=== PATIENT | female | born 1955 | race Caucasian/White ===

== ENCOUNTER 2020-08-07 08:09 | Outpatient (CLI) | payer MEDICARE, MEDICAID, SELFPAY ==
--- NOTE | 2020-08-07 09:00 | FL_ITS ---
WS: [id number] Exam: FL barium swallow modifd [id number] Date/Time of Exam: 08/07/2020 8:30 AM Reason For Exam: R47.02 - Dysphasia Fluoroscopy time: 2.4 minutes The exam was performed in conjunction with the speech therapy service. The patient tolerated thin liquid, thick liquid, nectar consistency and pudding consistency barium fo odstuffs without incident. Solid barium mixture foodstuffs and a barium pill were also tolerated well . There was no sign of aspiration or penetration into the laryngeal inlet. Questionable mucosal thick ening noted in the midesophagus along the posterior wall. Recommendations: Further workup with a detailed barium esophagram or esophagoscopy is recommended. An additional report of findings and recommendations will also be made with the speech therapy depart ment. FL/FL barium swallow modifd [id number] IMPRESSION: 1. Swallowing function at the level of oropharynx was normal with all consisten cies of barium mixture foodstuffs. No sign of aspiration or penetration into t he laryngeal inlet. 2. Questionable mucosal thickening of the midesophagus along the posterior wall .
== END 2020-08-07 08:10 | disposition home or self-care (01) ==
LOC: RAD 08:22
PROVIDERS: Visit Provider Surgery
DX: R47.02 Dysphasia (principal)
CPT/HCPCS: 74230; 92611

== ENCOUNTER → 2020-08-26 09:00 | Outpatient (BNVA) | payer MEDICARE, MEDICAID, SELFPAY | PROVIDERS: Visit Provider Surgery | DX: R47.02 Dysphasia (principal); Z20.822 Contact with and (suspected) exposure to COVID-19 | CPT/HCPCS: 87635 ==

== ENCOUNTER → 2020-09-25 08:59 | Outpatient (BNVA) | payer MEDICARE, MEDICAID, SELFPAY | PROVIDERS: Visit Provider Surgery | DX: R13.10 Dysphagia, unspecified (principal); Z01.812 Encounter for preprocedural laboratory examination; Z20.822 Contact with and (suspected) exposure to COVID-19 | CPT/HCPCS: 87635 ==

== ENCOUNTER 2020-09-30 08:46 | Day surgery (SDC) | payer MEDICARE, MEDICAID, SELFPAY ==
[2020-09-30 06:22] VITALS: BMI 38.5
[2020-09-30 10:14] VITALS: BP 100/68; PULSE 85; RESP 18; TEMP 36.4; O2SAT 99
--- NOTE | 2020-09-30 10:24 | P.HP_ITS ---
Same Day Surgery H&P Indication for Procedure/HPI DATE OF PROCEDURE: September 30, 2020 CHIEF COMPLAINT/INDICATIONFOR SURGICAL PROCEDURE: Difficulty in swallowing and screening colonoscopy PREOP DIAGNOSIS: Difficulty in swallowing and screening colonoscopy PLANNED PROCEDRUE: Operation Date: 09/30/20 08:15 Proposed Procedures s EGD 54970 84644 R47.2 Z12.11(Not Applicable) - Adarsh Gaxiola MD p Colonoscopy 92473 50297 R47.2 Z12.11(Not Applicable) - Adarsh Gaxiola MD Operation Date: 09/30/20 11:00 Proposed Procedures p EGD(Not Applicable) - Adarsh Gaxiola MD s Colonoscopy(Not Applicable) - Adarsh Gaxiola MD This is a pleasant 65 years old female patient referred to my practice with hist ory of dysphagia to solid food and associated with acid reflux. She reports that she does have dentures and denies history of strokes or nonintentional weight loss or hematemesis. She also reports history with pain often times with swallowing without obvious explanation. Patient does not smoke or ingest alcohol. Patient has been having this issue for the past few years and is just getting worse. Patient reports also that she is due for screening colonoscopy when I asked her. Interim history 09/30/2020 Patient comes today for diagnostic EGD and screening colonoscopy. Undergone a modified barium swallow that showed; IMPRESSION: 1. Swallowing function at the level of oropharynx was normal with all consistencies of barium mixture foodstuffs. No sign of aspiration or penetration into the laryngeal inlet. 2. Questionable mucosal thickening of the midesophagus along the posterior wall. ROS All systems have been reviewed negative except as per the above or per problem list Medications/Allergies* Home Medications Medication Instructions Recorded Confirmed Type atorvastatin 10 mg tablet 10 mg PO DAILY 07/22/20 09/30/20 History pantoprazole 40 mg tablet,delayed 40 mg PO DAILY 07/22/20 09/30/20 History release venlafaxine 37.5 mg 37.5 mg PO DAILY 07/22/20 09/30/20 History capsule,extended release 24 hr verapamil 120 mg 24 hr 120 mg PO DAILY 07/22/20 09/30/20 History capsule,extended release insulin NPH and regular human 40 unit SUBCUT BID 09/30/20 09/30/20 History [Humulin 70/30 U-100 KwikPen] semaglutide [Ozempic] 0.25 mg SUBCUT .WKLY 09/30/20 09/30/20 History Allergies/Adverse Reactions Allergy/AdvReac Type Severity Reaction Status Date / Time No Known Allergies Allergy Verified 09/30/20 10:25 Pertinent History/Comorbid Conditions* Family History (Updated 07/22/20 @ 15:30 by Gabriela Seth) Diabetes Cancer Hypertension Denies family history of CAD (coronary artery disease) Stroke Social History Smoking and tobacco status: never smoked Alcohol intake: never Lives independently: Yes Household members: spouse Pertinent Exam Findings alert, oriented x 3, clear to auscultation bilaterally, regular rate & rhythm and procedure specific exam findings (Abdominal examination nontender nondistended soft) Recommendations Surgery/Procedure today (EGD and colonoscopy) Other Plans: Plan of care; After thorough history and physical examination and reviewing the chart, plan to perform a diagnostic esophagogastroduodenoscopy and screening colonoscopy with possible biopsy and possible polypectomy. I discussed with the patient in detail the risks,benefits,alternatives and indications.The risk of aspiration, bleeding, soft tissue injury, perforation of the stomach/esophagus/colon and other potential concomitant complications were explained to the patient in details also the potential need for Thoracotomy and or Laproscoy/Laparotomy to repair any related complications including but not limited to colectomy and or Closotomy. The patient understood this well and did agree to proceed. Rationale was carefully and clearly discussed with the patient.Appropriate informed consent have been reviewed and signed Verbal and written Instructions were given to the patient for colonoscopy prep Coding Level of Care Code Acute Rn Outpatient Surgery for Ericka Parker
[2020-09-30] MEDS: sodium chloride 0.9% 1,000 ML 30 ML IV (10:27)
[2020-09-30 10:30] LABS: Glucose Point of Care 249 mg/dL (70-110)
--- NOTE | 2020-09-30 10:30 | ANES.PREANE2 ---
Pre-Anesthetic Assessment Pre-Anesthetic Assessment: Height/Weight: Height 1.68 m Weight 108.409 kg Temp Pulse Resp BP Pulse Ox 97.5 F L 85 18 100/68 99 09/30/20 10:14 09/30/20 10:14 09/30/20 10:14 09/30/20 10:14 09/30/20 10:14 Preop Diagnosis: Difficulty in swallowing and screening colonoscopy Proposed Procedure: Operation Date: 09/30/20 08:15 Proposed Procedures s EGD 54813 23710 R47.2 Z12.11(Not Applicable) - Adarsh Gaxiola MD p Colonoscopy 97162 07657 R47.2 Z12.11(Not Applicable) - Adarsh Gaxiola MD Operation Date: 09/30/20 11:00 Proposed Procedures p EGD(Not Applicable) - Adarsh Gaxiola MD s Colonoscopy(Not Applicable) - Adarsh Gaxiola MD Familial anesthetic complications: none Was Beta Salvador taken within 24 hours: N/A Was Clonidine taken within 24 hours: N/A Last intake: Intake Last Liquid Date 09/29/20 Last Liquid Time 20:00 Last Solid Date 09/28/20 Last Solid Time 18:00 Social: Social History: No alcohol and No tobacco Exam: Pre-Anes Outpt Exam: alert, oriented x 3, clear to auscultation bilaterally and regular rate & rhythm Airway: Cervical ROM: WNL MP: 4 Dentition: Other (no teeth) CV/HEM: CV/HEM: HTN GI: GI: GERD Metabolic: Metabolic: DM and Hyperlipidemia Anesthetic Plan: ASA status: 3 Anesthesia: MAC Risk of > 500 ml blood loss (7ml/kg in children): No Meds/Allergies Current Medications: Current Medications Generic Name Dose Route Start Last Admin Trade Name Freq PRN Reason Stop Dose Admin Sodium Chloride 1,000 mls @ 30 ml s/hr 09/30/20 09:00 09/30/20 10:27 Sodium Chloride 0.9% IV 30 mls/hr .Q24H JOSE AGNEL Administration PFSH Anesthesia PFSH: Family History Other Cancer Diabetes Hypertension Denies family history of CAD (coronary artery disease) Stroke Social History Smoking and tobacco status: never smoked Alcohol intake: never Lives independently: Yes Household members: spouse Data Anesthesia Other Labs: Laboratory Results - last 48 hr 09/30/20 10:24 POC Glucose 249 H Cardiac Studies: No Data to Display
[2020-09-30] MEDS: insulin regular-human 100 units/1 mL 10 UNIT IVP (10:51)
[2020-09-30 11:30] VITALS: BP 96/69; PULSE 93; RESP 16; TEMP 36.1; O2SAT 97
[2020-09-30 11:45] VITALS: BP 105/66; PULSE 92; RESP 18; TEMP 36.4; O2SAT 100
--- NOTE | 2020-09-30 12:03 | ANE.PACU2 ---
Inpatient post-anesthesia follow up: Airway intact: Yes Vital signs: Temperature 97.6 F Pulse Rate 92 Respiratory Rate 18 Blood Pressure 105/66 Pulse Oximetry 100 Oxygen Delivery Me thod Room Air Oxygen Flow Rate 2 Fraction of Inspir ed Oxygen Hydration adequate: Yes Nausea and vomiting: No Mental status: Baseline
== END 2020-09-30 12:05 | disposition home or self-care (01) ==
PROVIDERS: Visit Provider Surgery
PROC: 0DJ08ZZ Inspection of Upper Intestinal Tract, Via Natural or Artificial Opening Endoscopic (ICD-10-PCS; CPT 43235; principal; 2020-09-30 11:00)
PROC: 0DJD8ZZ Inspection of Lower Intestinal Tract, Via Natural or Artificial Opening Endoscopic (ICD-10-PCS; CPT 45378; 2020-09-30 11:00)
DX: Z12.11 Encounter for screening for malignant neoplasm of colon (principal); R13.10 Dysphagia, unspecified; K21.00 Gastro-esophageal reflux disease with esophagitis, without bleeding; K31.89 Other diseases of stomach and duodenum; I10 Essential (primary) hypertension; E11.9 Type 2 diabetes mellitus without complications; Z79.4 Long term (current) use of insulin; E78.5 Hyperlipidemia, unspecified
CPT/HCPCS: 36416; 43235; 82962; 96361; 96374; J1815; J3490; J7030

== ENCOUNTER → 2020-10-29 08:58 | Outpatient (BNVA) | payer MEDICARE, MEDICAID, SELFPAY | PROVIDERS: Visit Provider Surgery | DX: Z20.822 Contact with and (suspected) exposure to COVID-19 (principal) | CPT/HCPCS: 87635 ==

== ENCOUNTER 2020-11-02 05:49 | Day surgery (SDC) | payer MEDICARE, MEDICAID, SELFPAY ==
[2020-10-28 13:40] VITALS: BMI 36.0
--- NOTE | 2020-11-02 06:44 | P.HP_ITS ---
Same Day Surgery H&P Indication for Procedure/HPI DATE OF PROCEDURE: November 02, 2020 CHIEF COMPLAINT/INDICATIONFOR SURGICAL PROCEDURE: Problem with swallowing and I am due for screening colonoscopy PREOP DIAGNOSIS: Difficulty in swallowing and screening colonoscopy PLANNED PROCEDRUE: Operation Date: 11/02/20 08:00 Proposed Procedures p EGD/colon 55845 81646 r47.2 Z12.11(Not Applicable) - Adarsh Gaxiola MD s Colonoscopy(Not Applicable) - Adarsh Gaxiola MD This is a pleasant 65 years old female patient referred to my practice with history of dysphagia to solid food and associated with acid reflux. She reports that she does have dentures and denies history of strokes or nonintentional weight loss or hematemesis. She also reports history with pain often times with swallowing without obvious explanation. Patient does not smoke or ingest alcohol. Patient has been having this issue for the past few years and is just getting worse. Patient reports also that she is due for screening colonoscopy when I asked her. Interim history 11/02/2020 An attempt was done to proceed with the EGD and colonoscopy on 09/29/20 but unfortunately the patient had a lot of food in her stomach and I decided to abort the entire both procedures, and she was rescheduled for to proceed with diagnostic EGD due to her history of dysphagia and acid reflux and a screening colonoscopy. ROS All systems have been reviewed negative except as per the above or per problem list Medications/Allergies* Home Medications Medication Instructions Recorded Confirmed Type atorvastatin 10 mg tablet 10 mg PO DAILY 07/22/20 10/28/20 History pantoprazole 40 mg tablet,delayed 40 mg PO DAILY 07/22/20 10/28/20 History release venlafaxine 37.5 mg 37.5 mg PO DAILY 07/22/20 10/28/20 History capsule,extended release 24 hr verapamil 120 mg 24 hr 120 mg PO DAILY 07/22/20 10/28/20 History capsule,extended release Humulin 70/30 U-100 KwikPen 40 unit SUBCUT BID 09/30/20 10/28/20 History Ozempic 0.25 mg SUBCUT .WKLY 09/30/20 10/28/20 History Allergies/Adverse Reactions Allergy/AdvReac Type Severity Reaction Status Date / Time No Known Allergies Allergy Verified 09/30/20 10:25 Pertinent History/Comorbid Conditions* Family History (Updated 07/22/20 @ 15:30 by Gabriela Seth) Diabetes Cancer Hypertension Denies family history of CAD (coronary artery disease) Stroke Social History Smoking and tobacco status: never smoked Alcohol intake: never Lives independently: Yes Household members: spouse Pertinent Exam Findings alert, oriented x 3, clear to auscultation bilaterally and procedure specific exam findings (Abdominal examination nontender nondistended soft) Recommendations Surgery/Procedure today (EGD and colonoscopy with biopsy) Other Plans: Plan of care; After thorough history and physical examination and reviewing the chart, plan to perform a diagnostic esophagogastroduodenoscopy and screening colonoscopy with possible biopsy and possible polypectomy. I discussed with the patient in detail the risks,benefits,alternatives and indications.The risk of aspiration, bleeding, soft tissue injury, perforation of the stomach/esophagus/colon and other potential concomitant complications were explained to the patient in details also the potential need for Thoracotomy and or Laproscoy/Laparotomy to repair any related complications including but not limited to colectomy and or Closotomy. The patient understood this well and did agree to proceed. Rationale was carefully and clearly discussed with the patient.Appropriate informed consent have been reviewed and signed Verbal and written Instructions were given to the patient for colonoscopy prep Coding Level of Care Code Acute Cyber Security Specialist for Ericka Parker
--- NOTE | 2020-11-02 06:53 | ANES.PREANE2 ---
Pre-Anesthetic Assessment Pre-Anesthetic Assessment: Height/Weight: Height 1.7 m Weight 104.326 kg Preop Diagnosis: Difficulty in swallowing and screening colonoscopy Proposed Procedure: Operation Date: 11/02/20 08:00 Proposed Procedures p EGD/colon 67554 54748 r47.2 Z12.11(Not Applicable) - Adarsh Gaxiola MD s Colonoscopy(Not Applicable) - Adarsh Gaxiola MD Was Beta Salvador taken within 24 hours: N/A Was Clonidine taken within 24 hours: N/A Social: Social History: No alcohol and No tobacco Exam: Pre-Anes Outpt Exam: alert, oriented x 3, clear to auscultation bilaterally and regular rate & rhythm Airway: Submandibular: WNL Cervical ROM: WNL MP: 2 Dentition: False CV/HEM: CV/HEM: HTN GI: GI: GERD Metabolic: Metabolic: DM, Hyperlipidemia and Morbid obesity Anesthetic Plan: ASA status: 3 Anesthesia: MAC Risk of > 500 ml blood loss (7ml/kg in children): No PFSH Anesthesia PFSH: Family History Other Cancer Diabetes Hypertension Denies family history of CAD (coronary artery disease) Stroke Social History Smoking and tobacco status: never smoked Alcohol intake: never Lives independently: Yes Household members: spouse Data Anesthesia Cardiac Studies: No Data to Display
[2020-11-02 07:10] VITALS: BP 118/86; PULSE 91; RESP 18; TEMP 36.3; O2SAT 97
[2020-11-02] MEDS: sodium chloride 0.9% 1,000 ML 30 ML IV (07:24)
[2020-11-02 07:28] LABS: Glucose Point of Care 245 mg/dL (70-110)
[2020-11-02 08:15] VITALS: BP 108/79; PULSE 78; RESP 18; TEMP 36.4; O2SAT 96
--- NOTE | 2020-11-02 15:35 | ANE.PACU2 ---
Inpatient post-anesthesia follow up: Airway intact: Yes Vital signs: Temperature 97.6 F Pulse Rate 78 Respiratory Rate 18 Blood Pressure 108/79 Pulse Oximetry 96 Oxygen Delivery Me thod Room Air Oxygen Flow Rate Fraction of Inspir ed Oxygen Hydration adequate: Yes Nausea and vomiting: No Pain level: 1 Mental status: Baseline
== END 2020-11-02 09:15 | disposition home or self-care (01) ==
PROVIDERS: Visit Provider Surgery
PROC: 0DJ08ZZ Inspection of Upper Intestinal Tract, Via Natural or Artificial Opening Endoscopic (ICD-10-PCS; CPT 43235; principal; 2020-11-02 08:00)
PROC: 0DJD8ZZ Inspection of Lower Intestinal Tract, Via Natural or Artificial Opening Endoscopic (ICD-10-PCS; CPT 45330; 2020-11-02 08:00)
DX: Z12.11 Encounter for screening for malignant neoplasm of colon (principal); R13.10 Dysphagia, unspecified; Z83.3 Family history of diabetes mellitus; Z82.49 Family history of ischemic heart disease and other diseases of the circulatory system; K21.00 Gastro-esophageal reflux disease with esophagitis, without bleeding; K31.89 Other diseases of stomach and duodenum; I10 Essential (primary) hypertension; K21.9 Gastro-esophageal reflux disease without esophagitis; E11.9 Type 2 diabetes mellitus without complications; E78.5 Hyperlipidemia, unspecified; E66.01 Morbid (severe) obesity due to excess calories; Z68.36 Body mass index [BMI] 36.0-36.9, adult
CPT/HCPCS: 36416; 43235; 45330; 82962; 96360; 96361; J2704; J7030

== ENCOUNTER 2020-12-01 09:01 | Outpatient (CLI) | payer MEDICARE, MEDICAID, SELFPAY ==
--- NOTE | 2020-12-01 09:17 | FL_ITS ---
WS: [id number] Barium Enema TECHNICAL: Double contrast barium and edema FLUOROSCOPY TIME: 4.9 minutes CLINICAL INFORMATION: Z12.11 - Encounter for screening for malignant neoplasm o... COMPARISON: None. FINDINGS: Exam is limited due to moderate fecal retention in the colon. Tortuous sigmoid colon. No ev idence of high-grade stricture or obstructing mass. Moderate fecal retention in the left colon and tr ansverse colon partially obstructs contrast flow. Normal hepatic and splenic flexure. Limited evaluat ion of the right ascending colon due to tortuosity. FL/FL barium enema w air* [id number] IMPRESSION: Limited examination due to moderate fecal retention. 1. Normal barium enema considering moderate retained fecal contents. 2. No evidence of high-grade stricture or obstructing mass. 3. Limited evaluation of the right ascending colon due to tortuosity
== END 2020-12-01 09:02 | disposition home or self-care (01) ==
LOC: RAD 09:07
PROVIDERS: PCP Family Medicine; Visit Provider Surgery
DX: Z12.11 Encounter for screening for malignant neoplasm of colon (principal)
CPT/HCPCS: 74280

== ENCOUNTER 2020-12-22 08:54 | Outpatient (CLI) | payer MEDICARE, MEDICAID, SELFPAY ==
--- NOTE | 2020-12-22 10:00 | NM_ITS ---
WS: [id number] NUCLEAR MEDICINE GASTRIC EMPTYING EXAMINATION HISTORY: K21.9 - Gastro-esophageal reflux disease without esophagitis COMPARISON: None available. TECHNIQUE: The patient ingested a meal containing 1.1 mCi of Tc 99m sulfur colloid mixed with eggs. The patient was placed in supine position and imaging over the abdomen was performed for a total of 9 0 minutes. Computer acquisition with the region of interest placed over the stomach to evaluate gastr ic emptying half-time. Good distention of the stomach with the radionuclide meal. At 120 minutes less than 50% emptying of t he stomach. Approximately 34% has emptied from the stomach. NM/[place] [address] IMPRESSION: Findings consistent with moderate gastroparesis. Delayed emptying at 120 minute s.
== END 2020-12-22 08:55 | disposition home or self-care (01) ==
PROVIDERS: PCP Family Medicine; Visit Provider Surgery
DX: K21.9 Gastro-esophageal reflux disease without esophagitis (principal)
CPT/HCPCS: 78264; A9541

== ENCOUNTER → 2021-03-08 09:19 | Outpatient (BNVA) | payer MEDICARE, MEDICAID, SELFPAY | PROVIDERS: PCP Family Medicine; Visit Provider Internal Medicine | DX: E11.40 Type 2 diabetes mellitus with diabetic neuropathy, unspecified (principal); E78.5 Hyperlipidemia, unspecified; Z98.51 Tubal ligation status; Z79.4 Long term (current) use of insulin; Z79.84 Long term (current) use of oral hypoglycemic drugs | CPT/HCPCS: 99214 ==

== ENCOUNTER 2021-03-24 06:00 | Outpatient (RCR) | payer MEDICARE, MEDICAID, SELFPAY | END 2021-04-12 23:59 | disposition home or self-care (01) | LOC: GPT 06:00 | PROVIDERS: PCP Family Medicine; Referring Provider Family Medicine; Visit Provider Family Medicine | DX: M47.896 Other spondylosis, lumbar region (principal) | CPT/HCPCS: 97110; 97162; G0283 ==

== ENCOUNTER 2021-04-13 06:00 | Outpatient (RCR) | payer MEDICARE, MEDICAID, SELFPAY | END 2021-05-10 23:59 | disposition home or self-care (01) | LOC: GPT 06:00 | PROVIDERS: PCP Family Medicine; Referring Provider Family Medicine; Visit Provider Family Medicine | DX: M47.896 Other spondylosis, lumbar region (principal) | CPT/HCPCS: 97110 ==

== ENCOUNTER → 2021-06-07 09:43 | Outpatient (BNVA) | payer MEDICARE, MEDICAID, SELFPAY | PROVIDERS: PCP Family Medicine; Visit Provider Internal Medicine | DX: E11.40 Type 2 diabetes mellitus with diabetic neuropathy, unspecified (principal); E78.5 Hyperlipidemia, unspecified; Z98.51 Tubal ligation status; Z79.4 Long term (current) use of insulin; Z79.84 Long term (current) use of oral hypoglycemic drugs | CPT/HCPCS: 99214 ==

== ENCOUNTER → 2021-09-08 12:55 | Outpatient (BNVA) | payer MEDICARE, MEDICAID, SELFPAY | PROVIDERS: PCP Family Medicine; Visit Provider Internal Medicine | DX: E11.40 Type 2 diabetes mellitus with diabetic neuropathy, unspecified (principal); E78.5 Hyperlipidemia, unspecified; Z98.51 Tubal ligation status; K31.84 Gastroparesis; Z79.84 Long term (current) use of oral hypoglycemic drugs; Z79.4 Long term (current) use of insulin | CPT/HCPCS: 99214 ==

== ENCOUNTER → 2021-12-07 10:25 | Outpatient (BNVA) | payer MEDICARE, MEDICAID, SELFPAY | PROVIDERS: PCP Family Medicine; Visit Provider Internal Medicine | DX: E11.40 Type 2 diabetes mellitus with diabetic neuropathy, unspecified (principal); E78.5 Hyperlipidemia, unspecified; K31.84 Gastroparesis; Z79.84 Long term (current) use of oral hypoglycemic drugs; Z79.4 Long term (current) use of insulin | CPT/HCPCS: 99214 ==

== ENCOUNTER → 2022-02-22 15:05 | Outpatient (BNVA) | payer MEDICARE, MEDICAID, SELFPAY | PROVIDERS: PCP Family Medicine; Visit Provider Surgery | DX: R13.10 Dysphagia, unspecified (principal); K21.9 Gastro-esophageal reflux disease without esophagitis | CPT/HCPCS: 99213 ==

== ENCOUNTER 2022-02-28 07:44 | Day surgery (SDC) | payer MEDICARE, MEDICAID, SELFPAY ==
[2022-02-24 08:23] VITALS: BMI 35.4
[2022-02-28 08:10] VITALS: BP 119/75; PULSE 88; RESP 20; TEMP 36.3; O2SAT 99
[2022-02-28] MEDS: sodium chloride 0.9% 1,000 ML 30 ML IV (08:20)
[2022-02-28 08:23] LABS: Glucose Point of Care 167 mg/dL (70-110)
--- NOTE | 2022-02-28 08:51 | W.PM.OPSUD ---
Surgery/Procedure H&P Update DATE OF PROCEDURE: February 28, 2022 DATE H&P PERFORMED: 02/22/22 H&P UPDATE INFORMATION: I have reviewed H&P completed within last 30 days, I have examined patient prior to procedure and No changes to prior documentation PREOP DIAGNOSIS: Dysphagia PRIMARY INDICATION FOR PROCEDURE: The same PLANNED PROCEDURE: Operation Date: 02/28/22 09:30 Proposed Procedures p [id number], R13.10(Not Applicable) - Adarsh Gaxiola MD
--- NOTE | 2022-02-28 09:26 | ANES.PREANE2 ---
Pre-Anesthetic Assessment Height/Weight: Height 1.7 m Weight 102.512 kg Temp Pulse Resp BP Pulse Ox O2 Del Method 97.4 F L 88 20 H 119/75 99 02/28/22 08:10 02/28/22 08:10 02/28/22 08:10 02/28/22 08:10 02/28/22 08:10 02/28/22 08:10 Preop Diagnosis: Dysphagia Operation Date: 02/28/22 09:30 Proposed Procedures p [id number], R13.10(Not Applicable) - Adarsh Gaxiola MD Was Beta Salvador taken within 24 hours: N/A Was Clonidine taken within 24 hours: N/A Last intake: Intake Last Liquid Date 02/27/22 Last Liquid Time 20:00 Last Solid Date 02/26/22 Last Solid Time 09:00 Social No alcohol and No tobacco Exam alert, oriented x 3, clear to auscultation bilaterally and regular rate & rhythm Airway Submandibular: within normal limits Cervical ROM: within normal limits Mallampati: Class II Dentition: false History/ROS No significant history except as noted and No significant complaints Pulmonary None reported CV/HEM Hypertension None reported Hepatic None reported GI Dysphagia Metabolic Diabetes Mellitus and Morbid Obesity [facility] [place] None reported Neuropsych None reported Anesthetic Plan ASA status: 3 Anesthesia: Anesthesia Evaluation and MAC Risk of > 500 ml blood loss (7ml/kg in children): No Medications/Allergies Home Medications Medication Instructions Recorded Confirmed Last Taken Type pantoprazole 40 mg tablet,delayed 40 mg PO DAILY 07/22/20 02/24/22 02/27/22 History release blood-glucose meter,continuous #1 ea 12/09/20 02/24/22 Unknown Rx (Dexcom G6 Clinical Pharmacy Coordinator misc) aripiprazole 5 mg tablet (Abilify) 5 mg PO DAILY 03/08/21 02/24/22 02/27/22 History atorvastatin 10 mg tablet 20 mg PO DAILY 03/08/21 02/24/22 02/27/22 History cyclosporine 0.05 % eye drops 1 drp ophthalmic (eye) Q12H 03/08/21 02/24/22 02/27/22 History (Restasis MultiDose) diazepam 10 mg tablet 10 mg PO DAILY PRN Anxiety 03/08/21 02/24/22 02/27/22 History escitalopram oxalate 20 mg tablet 20 mg PO DAILY 03/08/21 02/24/22 02/27/22 History (Lexapro) lisinopril 10 mg tablet 10 mg PO DAILY 03/08/21 02/24/22 02/27/22 History losartan 25 mg tablet 25 mg PO DAILY 03/08/21 02/24/22 02/27/22 History oxybutynin chloride 10 mg 10 mg PO DAILY 03/08/21 02/24/22 02/27/22 History tablet,extended release 24 hr trazodone 150 mg tablet 150 mg PO DAILY 03/08/21 02/24/22 02/27/22 History venlafaxine 37.5 mg 150 mg PO DAILY 03/08/21 02/24/22 02/27/22 History capsule,extended release 24 hr (Effexor XR) verapamil 120 mg 24 hr 240 mg PO DAILY 03/08/21 02/24/22 02/27/22 History capsule,extended release insulin detemir U-100 100 unit/mL 50 unit (0.5 mL) SUBCUT DAILY #45 06/09/21 02/24/22 02/27/22 Rx (3 mL) subcutaneous pen (Levemir mL FlexTouch U-100 Insulin) blood-glucose sensor (Dexcom G6 #3 ea 07/12/21 02/24/22 Unknown Rx Sensor device) blood-glucose transmitter (Dexcom #1 ea 07/12/21 02/24/22 Unknown Rx G6 Transmitter device) semaglutide 0.25 mg or 0.5 mg (2 0.5 mg (0.4 mL) SUBCUT .weekly #6 09/08/21 02/24/22 02/27/22 Rx mg/1.5 mL) subcutaneous pen mL injector (Ozempic) empagliflozin 25 mg tablet 25 mg PO DAILY #90 tabs 01/20/22 02/24/22 02/27/22 Rx (Jardiance) metformin 1,000 mg tablet,extended 1,000 mg PO BID #180 tabs 02/25/22 02/28/22 02/27/22 08:00 Rx release 24hr Allergies Allergy/AdvReac Type Severity Reaction Status Date / Time No Known Allergies Allergy Verified 02/24/22 14:37 Current Medications Generic Name Dose Route Start Last Admin Trade Name Freq PRN Reason Stop Dose Admin Sodium Chloride 1,000 mls @ 30 mls/hr 02/28/22 08:00 02/28/22 08:20 Sodium Chloride 0.9% IV 03/01/22 07:59 30 mls/hr .Q24H JOSE ANGEL Administration PFSH Anesthesia Medical History Diabetes Difficulty in swallowing Encounter for screening colonoscopy Gastritis Hyperlipidemia Hypertension Surgical History History of colonoscopy History of knee replacement History of tubal ligation Family History Other Cancer Diabetes Hypertension Denies family history of CAD (coronary artery disease) Stroke Social History Smoking and tobacco status: never smoked Alcohol intake: never Lives independently: Yes Household members: spouse Data Anesthesia Cardiac Studies: No Data to Display
[2022-02-28 10:05] VITALS: BP 83/56; PULSE 90; RESP 20; TEMP 36.3; O2SAT 91
[2022-02-28 10:19] VITALS: BP 111/73; PULSE 85; RESP 18; TEMP 36.5; O2SAT 96
--- NOTE | 2022-02-28 15:45 | ANE.PACU2 ---
Inpatient post-anesthesia follow up: Airway intact: Yes Vital signs: Temperature 97.7 F Pulse Rate 85 Respiratory Rate 18 Blood Pressure 111/73 Pulse Oximetry 96 Oxygen Delivery Me thod Room Air Oxygen Flow Rate 2 Fraction of Inspir ed Oxygen Hydration adequate: Yes Nausea and vomiting: No Pain level: 2 Mental status: Baseline
== END 2022-02-28 10:32 | disposition home or self-care (01) ==
PROVIDERS: PCP Family Medicine; Visit Provider Surgery
PROC: 0DJ08ZZ Inspection of Upper Intestinal Tract, Via Natural or Artificial Opening Endoscopic (ICD-10-PCS; CPT 43235; principal; 2022-02-28 09:30)
DX: R13.10 Dysphagia, unspecified (principal); K21.00 Gastro-esophageal reflux disease with esophagitis, without bleeding; K31.89 Other diseases of stomach and duodenum; K29.50 Unspecified chronic gastritis without bleeding; B96.81 Helicobacter pylori [H. pylori] as the cause of diseases classified elsewhere; I10 Essential (primary) hypertension; E11.9 Type 2 diabetes mellitus without complications; E66.01 Morbid (severe) obesity due to excess calories; Z68.35 Body mass index [BMI] 35.0-35.9, adult; Z79.84 Long term (current) use of oral hypoglycemic drugs
CPT/HCPCS: 36416; 43239; 82962; 88305; 88342; J2704; J7030

== ENCOUNTER → 2022-03-08 08:48 | Outpatient (BNVA) | payer MEDICARE, MEDICAID, SELFPAY | PROVIDERS: PCP Family Medicine; Visit Provider Surgery | DX: Z09 Encounter for follow-up examination after completed treatment for conditions other than malignant neoplasm (principal); R13.10 Dysphagia, unspecified; K21.9 Gastro-esophageal reflux disease without esophagitis | CPT/HCPCS: 99213 ==

== ENCOUNTER → 2022-03-09 10:27 | Outpatient (BNVA) | payer MEDICARE, MEDICAID, SELFPAY | PROVIDERS: PCP Family Medicine; Visit Provider Internal Medicine | DX: E11.40 Type 2 diabetes mellitus with diabetic neuropathy, unspecified (principal); K31.84 Gastroparesis; E78.5 Hyperlipidemia, unspecified; Z98.51 Tubal ligation status; Z79.4 Long term (current) use of insulin; Z79.84 Long term (current) use of oral hypoglycemic drugs | CPT/HCPCS: 99214 ==

== ENCOUNTER 2022-04-14 09:49 | Emergency (ER) | payer MEDICARE, MEDICAID, SELFPAY ==
[2022-04-14] VITALS (10 sets, daily range): BP systolic 110–152; BP diastolic 65–87; PULSE 88; RESP 17; TEMP 36.6; O2SAT 93–99; BMI 35.0
--- NOTE | 2022-04-14 10:46 | ED_ITS ---
HPI - Weakness General: Chief complaint: Weakness Stated complaint: recent falls/sent by dr Saenz Seen by Provider: 04/14/22 10:39 Source: patient Mode of arrival: ambulatory History of Present Illness: 66-year-old female presents emergency room with complaints of multiple falls over the last couple of weeks. She is hit her head several times she is not on any anticoagulants. She has had several falls while walking usually has hard time maintaining her balance and she is gone hit her head on 2 occasions once on the porch another time when a metal fan there was no loss of consciousness. She has poorly controlled blood sugars. She is diabetic and has known diabetic peripheral neuropathy. She denies any chest or abdominal pain. She went to her primary care doctor who referred her to the ER today. And has been using a cane to walk. MD Complaint: generalized weakness Onset (ago): week(s) Duration: intermittent Location: generalized Severity: moderate Quality: numbness Relieving factors: none Exacerbating factors: none Associated symptoms: Denies chest pain, chills, confusion, melena, decreased appetite, diaphoresis, dysuria, easy bruising, fever(s), headache(s), myalgias, nausea, rash, short of breath, syncope or vomiting Review of Systems Const: Denies: fever(s), chills, fatigue, malaise or diaphoresis ENMT: Denies: throat pain, ear or mastoid pain, nasal discharge or nasal congestion Card: Denies: chest pain, palpitations, irregular heart rhythm, edema or syncope Resp: Denies: dyspnea, productive cough or non-productive cough GI: Denies: abdominal pain, nausea, vomiting or melena : Denies: dysuria, urinary frequency or urinary urgency Skin/Breast: Denies: rash or pruritus Neuro: Denies: headache(s) or confusion Hank/Lymph: Denies: easy bruising PFSH ED PFSH: Medical History Diabetes Difficulty in swallowing Encounter for screening colonoscopy Gastritis Hyperlipidemia Hypertension Surgical History History of colonoscopy History of knee replacement History of tubal ligation Family History Other Cancer Diabetes Hypertension Denies family history of CAD (coronary artery disease) Stroke Social History Smoking and tobacco status: never smoked Alcohol intake: never Lives independently: Yes Household members: spouse Physical Exam Const: GENERAL APPEARANCE: cooperative and comfortable ORIENTATION/CONSCIOUSNESS: Yes awake, Yes oriented to person, Yes oriented to place and Yes oriented to time HENMT: COMMON NORMALS: normocephalic, atraumatic and hearing grossly normal bilaterally HEAD & SCALP: normocephalic and atraumatic Resp: COMMON NORMALS: normal respiratory effort, No retractions, No use of accessory muscles and clear to auscultation bilaterally AUSCULTATION: clear to auscultation bilaterally Cardio: COMMON NORMALS: regular rate, regular rhythm and No murmurs present (Cardio) RATE: regular rate RHYTHM: regular rhythm GI: COMMON NORMALS: Soft to palpation and No hepatosplenomegaly present AUSCULTATION: Yes normoactive bowel sounds PALPATION: Yes Soft to palpation, No Tenderness to palpation present (GI), No Guarding due to palpation present (GI) and Yes No hepatosplenomegaly present Extremity: COMMON NORMALS: normal to inspection, capillary refill normal, no clubbing, cyanosis or edema, no calf tenderness and no pedal edema Neuro: SENSORIUM/ORIENTATION: Yes oriented to person, Yes oriented to place and Yes oriented to time OTHER: Cranial nerves II 12 gross intact no focal neurologic deficits are noted Skin: COMMON NORMALS: no rashes or lesions noted GENERAL SKIN EXAM: no rashes or lesions noted Course Vital Signs: Vital signs: Vital Signs Temperature 97.9 F 04/14/22 09:58 Pulse Rate 88 04/14/22 09:58 Respiratory Rate 17 04/14/22 09:58 Blood Pressure 114/76 04/14/22 13:30 Pulse Oximetry 96 04/14/22 13:30 Oxygen Delivery Me thod 04/14/22 13:30 MDM - Weakness Medical Decision Making Labs and imaging reviewed and discussed with patient CT of the head and neck were negative. She has no focal neurologic deficits nothing appears if she had a stroke. There is no trauma to the lower extremities. Her sensation is present but somewhat diminished on exam. I think a large part of this is lack of proprioception or peripheral neuropathy from her diabetes. We will set her up for a walker and have her follow-up with primary care doctor. PT has been ordered to come down and evaluate and train patient on the use of walker PT arrived patient had left without being discharged she had pulled her own IV and left the department. Staff will contact her. Medical Records I reviewed the patient's medical records. Lab Data I reviewed the patient's lab results. 04/14/22 11:25 04/14/22 11:25 Radiology Impressions Cervical Spine CT 04/14/22 11:06 IMPRESSION: 1. No cervical spine fracture. 2. Mild curvature cervical spine. Head CT 04/14/22 11:06 IMPRESSION: 1. No acute intracranial hemorrhage or edema. 2. Moderate atrophy and small vessel ischemic disease. No skull fracture. Laboratory Results WBC 7.0 10^3/uL (4.0-10.0) 04/14/22 11:25 RBC 5.08 10^6/uL (4.1-5.3) 04/14/22 11:25 Hgb 13.4 g/dL (11.5-15.3) 04/14/22 11:25 Hct 42.7 % (37.0-47.0) 04/14/22 11:25 MCV 84.1 fl (81-99) 04/14/22 11:25 MCH 26.4 pg (28.0-34.0) L 04/14/22 11:25 MCHC 31.4 g/dL (30.0-36.0) 04/14/22 11:25 RDW 13.8 % (12.1-15.1) 04/14/22 11:25 Plt Count 307 10^3/cmm (130-400) 04/14/22 11:25 MPV 8.5 fL (7.4-10.4) 04/14/22 11:25 Neut % (Auto) 59.8 % 04/14/22 11:25 Lymph % (Auto) 26.9 % 04/14/22 11:25 Love % (Auto) 8.4 % 04/14/22 11:25 Eos % (Auto) 3.3 % 04/14/22 11:25 Baso % (Auto) 1.0 % 04/14/22 11:25 Neut # (Auto) 4.21 10^3/uL (1.8-7.7) 04/14/22 11:25 Lymph # (Auto) 1.9 10^3/uL (0.8-4.8) 04/14/22 11:25 Love # (Auto) 0.6 10^3/uL (0.2-0.9) 04/14/22 11:25 Eos # (Auto) 0.2 10^3/uL (0.0-0.8) 04/14/22 11:25 Baso # (Auto) 0.1 10^3/uL (0.0-0.1) 04/14/22 11:25 Nucleated RBC % (auto) 0 % 04/14/22 11:25 Nucleated RBCs # 0.0 /100WBC 04/14/22 11:25 Sodium 130 mmol/L (136-145) L 04/14/22 11:25 Potassium 4.6 mmol/L (3.5-5.1) 04/14/22 11:25 Chloride 92 mmol/L (98-107) L 04/14/22 11:25 Carbon Dioxide 25 mmol/L (22-29) 04/14/22 11:25 Anion Gap 17.6 (5-19) 04/14/22 11:25 BUN 21 mg/dL (8-23) 04/14/22 11:25 Creatinine 0.9 mg/dL (0.5-0.9) 04/14/22 11:25 GFR Calculation 63.0 mL/min (90-130) L 04/14/22 11:25 Glucose 591 mg/dL (65-115) H* 04/14/22 11:25 POC Glucose 555 mg/dL (70-110) H* 04/14/22 11:15 Calculated Osmolality 300 mOsm/kg (285-295) H 04/14/22 11:25 Calcium 9.8 mg/dL (8.5-10.5) 04/14/22 11:25 Total Bilirubin 0.5 mg/dL (0.15-1.2) 04/14/22 11:25 AST 12 U/L (0-32) 04/14/22 11:25 ALT 19 U/L (0-33) 04/14/22 11:25 Alkaline Phosphatase 74 U/L (35-105) 04/14/22 11:25 Total Protein 7.2 g/dL (6.6-8.7) 04/14/22 11:25 Albumin 4.1 g/dL (3.5-5.2) 04/14/22 11:25 Globulin 3.1 g/dL (1.3-4.6) 04/14/22 11:25 Discharge Plan Discharge Patient Disposition: Home Clinical Impression: Frequent falls, Diabetic peripheral neuropathy Condition: Stable Prescriptions: No Action oxybutynin chloride 10 mg tablet extended release 24hr 10 mg PO DAILY lisinopril 10 mg tablet 10 mg PO DAILY Restasis MultiDose 0.05 % drops 1 drp ophthalmic (eye) Q12H diazepam 10 mg tablet 10 mg PO DAILY PRN (Reason: Anxiety) escitalopram oxalate [Lexapro] 20 mg tablet 20 mg PO DAILY trazodone 150 mg tablet 150 mg PO BEDTIME aripiprazole [Abilify] 5 mg tablet 5 mg PO DAILY losartan 25 mg tablet 25 mg PO DAILY atorvastatin 10 mg tablet 20 mg PO DAILY venlafaxine [Effexor XR] 37.5 mg capsule,extended release 24hr 150 mg PO BID verapamil 120 mg capsule,ext rel. pellets 24 hr 240 mg PO DAILY (DME) Dexcom G6 Environmental Services Director Misc See Rx Instructions .Route Qty: 1 3RF Rx Instructions: Check blood sugars 3-4 times daily. Ozempic 0.25 mg or 0.5 mg(2 mg/1.5 mL) pen injector 0.5 mg SUBCUT .weekly Qty: 6 3RF Rx Instructions: Inject 0.5 mg once a week and continue. pantoprazole [Protonix] 40 mg tablet,delayed release (DR/EC) 40 mg PO BID 14 Days Qty: 28 0RF (DME) Dexcom G6 Transmitter Device See Rx Instructions .Route Qty: 1 3RF Rx Instructions: Change every 90 days. Jardiance 25 mg tablet 25 mg PO DAILY Qty: 90 3RF Rx Instructions: Take one tablet by mouth daily. metformin 1,000 mg tablet extended release 24 hr 1,000 mg PO BID Qty: 180 3RF Rx Instructions: Take one tablet by mouth twice a day. (DME) Dexcom G6 Sensor Device See Rx Instructions .Route Qty: 3 3RF Rx Instructions: Change every 10 days. Levemir FlexTouch U-100 Insuln 100 unit/mL (3 mL) insulin pen 50 unit SUBCUT DAILY Qty: 45 3RF Rx Instructions: Administer 50 units subcut daily. Discharge Orders: Discharge ED (Routine); Ordered 04/14/22 Ordered By: Keyshawn Valdovinos Other Ambulatory Orders: DME: Walker (Order) Location: None Selected Ordered By: Keyshawn Valdovinos Referrals: Henny Peter [Primary Care Provider] - Patient Instructions: Opioid Safety, Pain Management Activity Restrictions/Additional Instructions: You were seen today with frequent falls. CT of the head and neck did not show any acute changes. Suspect main culprit for your frequent falls is a diabetic peripheral neuropathy. Recommend you use a walker regularly. Case management will help set you establish with a primary care doctor. Coding Level of Care Code ED Multimedia Coordinator for Chg Fwd Exam Detailed
--- NOTE | 2022-04-14 11:06 | CT_ITS ---
WS: [id number] CT HEAD NONCONTRAST HISTORY: fall/head trauma TECHNIQUE: Contiguous axial imaging performed through the brain in 2.5 mm imaging. Bone and soft tiss ue windows. Sagittal and coronal reformats reviewed. All CT scans at [facility] use at least one of these dose optimization techniques: automated exposure control; mA and/or kV adjustment per pa tient size (includes targeted exams where dose is matched to clinical indication); or iterative recon struction. DLP: 12.38 mGy.cm COMPARISON: 05/14/2013 No acute intracranial hemorrhage, midline shift or mass effect. Moderate atrophy and small vessel ischemic disease. No prior large territory infarct. No acute hemorr emeli. Ventricles: Normal size with no hydrocephalus. No inferior displacement of the cerebellar tonsils. Paranasal sinuses: As visualized are clear. Mastoid air cells: Well pneumatized. Calvarium and scalp: Skull is intact with no soft tissue edema or swelling. CT/CT head wo con* [id number] IMPRESSION: 1. No acute intracranial hemorrhage or edema. 2. Moderate atrophy and small vessel ischemic disease. No skull fracture.
--- NOTE | 2022-04-14 11:06 | CT_ITS ---
WS: [id number] CT CERVICAL SPINE HISTORY: fall TECHNIQUE: Contiguous 2.5 mm axial imaging performed through the entire cervical spine. Sagittal and coronal reformats also performed. All CT scans at [facility] use at least one of these dose o ptimization techniques: automated exposure control; mA and/or kV adjustment per patient size (include s targeted exams where dose is matched to clinical indication); or iterative reconstruction. DLP: 452.67 mGy.cm COMPARISON: None available. Mild curvature and scoliosis of the cervical spine. No acute fractures are identified. The posterior alignment is normal. Facet joints are normally aligned. Craniocervical junction is normal. Lateral ma sses of C1 and C2 are aligned. Odontoid is intact. C2-C3: Normal. C3-C4: Mild osteophytic ridging. Very small LEFT foraminal disc protrusion. No stenosis. C4-C5: Normal. C5-C6: Normal. C6-C7: Normal. C7-T1: Normal. Subcentimeter LEFT thyroid nodule. CT/CT cervical spin wo con* [id number] IMPRESSION: 1. No cervical spine fracture. 2. Mild curvature cervical spine.
[2022-04-14 11:19] LABS: Glucose Point of Care 555 mg/dL (70-110)
[2022-04-14 11:34] LABS: Basophils # 0.1 10^3/uL (0.0-0.1); Eosinophils # 0.2 10^3/uL (0.0-0.8); Eosinophils % 3.3 %; Hematocrit 42.7 % (37.0-47.0); Hemoglobin 13.4 g/dL (11.5-15.3); Lymphocytes # 1.9 10^3/uL (0.8-4.8); Lymphocytes % 26.9 %; Mean Corpuscular HGB Conc 31.4 g/dL (30.0-36.0); Mean Corpuscular Hemoglobin 26.4 pg (28.0-34.0); Mean Corpuscular Volume 84.1 fl (81-99); Mean Platelet Volume 8.5 fL (7.4-10.4); Monocytes # 0.6 10^3/uL (0.2-0.9); Monocytes % 8.4 %; Neutrophils # 4.21 10^3/uL (1.8-7.7); Neutrophils % 59.8 %; Nucleated Red Blood Cells % 0 %; Platelet Count 307 10^3/cmm (130-400); Red Blood Count 5.08 10^6/uL (4.1-5.3); Red Cell Distribution Width 13.8 % (12.1-15.1)
[2022-04-14 11:53] LABS: Alanine Aminotransferase 19 U/L (0-33); Albumin Level 4.1 g/dL (3.5-5.2); Alkaline Phosphatase 74 U/L (35-105); Anion Gap 17.6 (5-19); Aspartate Amino Transferase 12 U/L (0-32); Blood Urea Nitrogen 21 mg/dL (8-23); Calcium 9.8 mg/dL (8.5-10.5); Carbon Dioxide 25 mmol/L (22-29); Chloride 92 mmol/L (98-107); Globulin 3.1 g/dL (1.3-4.6); Osmolality Calculated 300 mOsm/kg (285-295); Potassium 4.6 mmol/L (3.5-5.1); Sodium 130 mmol/L (136-145); Total Bilirubin 0.5 mg/dL (0.15-1.2); Total Protein 7.2 g/dL (6.6-8.7)
[2022-04-14 11:55] LABS: Glucose 591 mg/dL (65-115)
[2022-04-14] MEDS: insulin regular-human 100 units/1 mL 10 UNIT IVP (12:16)
[2022-04-14] MEDS: sodium chloride 0.9% 1,000 ML 999 ML IV (12:16)
--- NOTE | 2022-04-14 14:16 | PC.PT ---
Went to see patient, for physical therapy evaluation, regarding multiple falls, and found patient had left the building and driven away, per ER staff.
== END 2022-04-14 14:07 | disposition home or self-care (01) ==
PROVIDERS: Emergency Provider Family Medicine; PCP Family Medicine
DX: E11.42 Type 2 diabetes mellitus with diabetic polyneuropathy (principal); I10 Essential (primary) hypertension; E78.5 Hyperlipidemia, unspecified
CPT/HCPCS: 36415; 36416; 70450; 72125; 80053; 82962; 85025; 96361; 96374; 99285; J1815; J7030

== ENCOUNTER → 2022-06-10 10:29 | Outpatient (BNVA) | payer MEDICARE, MEDICAID, SELFPAY | PROVIDERS: PCP Family Medicine; Visit Provider Internal Medicine | DX: E11.42 Type 2 diabetes mellitus with diabetic polyneuropathy (principal); Z79.84 Long term (current) use of oral hypoglycemic drugs; Z79.4 Long term (current) use of insulin; E78.5 Hyperlipidemia, unspecified; K31.84 Gastroparesis | CPT/HCPCS: 99214 ==

== ENCOUNTER → 2022-08-11 08:03 | Outpatient (BNVA) | payer MEDICARE, MEDICAID, SELFPAY | PROVIDERS: PCP Family Medicine; Visit Provider Internal Medicine | DX: E11.42 Type 2 diabetes mellitus with diabetic polyneuropathy (principal); E78.5 Hyperlipidemia, unspecified; K31.84 Gastroparesis; Z79.84 Long term (current) use of oral hypoglycemic drugs; Z79.4 Long term (current) use of insulin | CPT/HCPCS: 99215 ==

== ENCOUNTER 2022-08-11 09:21 | Emergency (ER) | payer MEDICARE, MEDICAID, SELFPAY ==
[2022-08-11 09:21] VITALS: BMI 29.9
[2022-08-11 09:33] VITALS: BP 131/86; PULSE 86; RESP 18; TEMP 36.8; O2SAT 97
[2022-08-11 09:37] LABS: Glucose Point of Care 353 mg/dL (70-110)
--- NOTE | 2022-08-11 09:48 | ED_ITS ---
HPI - Nausea/Vomiting/Diarrhea General: Chief complaint: Nausea/Vomiting/Diarrhea Stated complaint: High Blood Sugar, N/V Time Seen by Provider: 08/11/22 09:22 Source: patient Mode of arrival: ambulatory Limitations: no limitations History of Present Illness: 66-year-old female has a history of diabetes insulin-dependent with poor control. She was seen by her labor arbitrator hearing office this morning who switched her off her Dexcom to subcu due to chronically high blood sugars she states that she is also had some nausea vomiting and diarrhea over the last 2 weeks she does have a history gastroparesis. She had some slight abdominal pain and dysuria as well. Her blood sugar here is improved states she did do a subcu dose of her insulin at 353. She denies any severe pain rates her pain a 3 out of 10 is diffuse in nature. Associated nausea: Yes Associated symtoms: Reports dysuria and nausea; Denies chest pain or headache(s) Review of Systems Const: Denies: chills, body aches or change in appetite Eyes: Denies: eye discomfort ENMT: Denies: throat pain or dental pain Card: Denies: chest pain Resp: Denies: dyspnea GI: Reports: abdominal pain, nausea, vomiting and diarrhea : Reports: dysuria Musc: Denies: neck pain or back pain Skin/Breast: Denies: rash Neuro: Denies: headache(s) PFSH ED PFSH: Medical History Diabetes Difficulty in swallowing Encounter for screening colonoscopy Gastritis Hyperlipidemia Hypertension Surgical History History of colonoscopy History of knee replacement History of tubal ligation Family History Other Cancer Diabetes Hypertension Denies family history of CAD (coronary artery disease) Stroke Social History Smoking and tobacco status: never smoked Alcohol intake: never Substance/Drug Use: never Lives independently: Yes Household members: spouse Physical Exam Const: COMMON NORMALS: no acute distress, patient oriented x3 and healthy appearing HENMT: COMMON NORMALS: normocephalic and atraumatic HEAD & SCALP: normocephalic and atraumatic Neck/C-Spine: COMMON NORMALS: full ROM and supple Chest: COMMONS NORMALS: normal inspection of the chest and normal palpation of entire chest wall Resp: COMMON NORMALS: normal respiratory effort, No retractions, No use of accessory muscles and clear to auscultation bilaterally AUSCULTATION: clear to auscultation bilaterally Cardio: COMMON NORMALS: regular rate, regular rhythm and No murmurs present (Cardio) RATE: regular rate RHYTHM: regular rhythm GI: COMMON NORMALS: Normal to inspection, nondistended, normoactive bowel sounds present, Soft to palpation, non-tender and no masses PALPATION: Yes Soft to palpation Extremity: COMMON NORMALS: normal to inspection and full ROM Neuro: COMMON NORMALS: patient oriented x3, moves all extremities and no focal motor deficits Psych: COMMON NORMALS: mental status grossly normal, Normal thought process present and cooperative THOUGHT PROCESS: Normal thought process present Skin: COMMON NORMALS: no rashes or lesions noted and no wounds GENERAL SKIN EXAM: no rashes or lesions noted Course Vital Signs: Vital signs: Vital Signs Temperature 98.2 F 08/11/22 09:33 Pulse Rate 73 08/11/22 11:46 Respiratory Rate 18 08/11/22 11:46 Blood Pressure 106/68 08/11/22 11:46 Pulse Oximetry 99 08/11/22 11:46 Oxygen Delivery Me thod Room Air 08/11/22 11:03 MDM - Nausea/Vomiting/Diarrhea Medical Decision Making Patient presents with vomiting is likely from her gastroparesis she feels much improved after fluids and Zofran her blood sugar here is improved she has no signs of DKA she is to do her new insulin regimen that her labor arbitrator hearing office prescribed she is to follow-up with her labor arbitrator hearing office return if worsening she understands agrees to plan. Medical Records I reviewed the patient's medical records. Lab Data I reviewed the patient's lab results. 08/11/22 09:57 08/11/22 09:57 Laboratory Results WBC 6.8 10^3/uL (4.0-10.0) 08/11/22 09:57 RBC 5.30 10^6/uL (4.1-5.3) 08/11/22 09:57 Hgb 13.3 g/dL (11.5-15.3) 08/11/22 09:57 Hct 42.2 % (37.0-47.0) 08/11/22 09:57 MCV 79.6 fl (81-99) L 08/11/22 09:57 MCH 25.1 pg (28.0-34.0) L 08/11/22 09:57 MCHC 31.5 g/dL (30.0-36.0) 08/11/22 09:57 RDW 14.4 % (12.1-15.1) 08/11/22 09:57 Plt Count 291 10^3/cmm (130-400) 08/11/22 09:57 MPV 8.6 fL (7.4-10.4) 08/11/22 09:57 Neut % (Auto) 53.9 % 08/11/22 09:57 Lymph % (Auto) 34.0 % 08/11/22 09:57 [place] % (Auto) 7.0 % 08/11/22 09:57 Eos % (Auto) 4.1 % 08/11/22 09:57 Baso % (Auto) 0.6 % 08/11/22 09:57 Neut # (Auto) 3.64 10^3/uL (1.8-7.7) 08/11/22 09:57 Lymph # (Auto) 2.3 10^3/uL (0.8-4.8) 08/11/22 09:57 [place] # (Auto) 0.5 10^3/uL (0.2-0.9) 08/11/22 09:57 Eos # (Auto) 0.3 10^3/uL (0.0-0.8) 08/11/22 09:57 Baso # (Auto) 0.0 10^3/uL (0.0-0.1) 08/11/22 09:57 Nucleated RBC % (auto) 0 % 08/11/22 09:57 Nucleated RBCs # 0.0 /100WBC 08/11/22 09:57 Sodium 134 mmol/L (136-145) L 08/11/22 09:57 Potassium 4.7 mmol/L (3.5-5.1) 08/11/22 09:57 Chloride 99 mmol/L (98-107) 08/11/22 09:57 Carbon Dioxide 21 mmol/L (22-29) L 08/11/22 09:57 Anion Gap 18.7 (5-19) 08/11/22 09:57 BUN 15 mg/dL (8-23) 08/11/22 09:57 Creatinine 0.7 mg/dL (0.5-0.9) 08/11/22 09:57 GFR Calculation 84.2 mL/min (90-130) L 08/11/22 09:57 Glucose 308 mg/dL (65-115) H 08/11/22 09:57 POC Glucose 293 mg/dL (70-110) H 08/11/22 11:07 Calculated Osmolality 290 mOsm/kg (285-295) 08/11/22 09:57 Calcium 9.1 mg/dL (8.5-10.5) 08/11/22 09:57 Total Bilirubin 0.3 mg/dL (0.15-1.2) 08/11/22 09:57 AST 15 U/L (0-32) 08/11/22 09:57 ALT 17 U/L (0-33) 08/11/22 09:57 Alkaline Phosphatase 69 U/L (35-105) 08/11/22 09:57 Total Protein 7.2 g/dL (6.6-8.7) 08/11/22 09:57 Albumin 3.9 g/dL (3.5-5.2) 08/11/22 09:57 Globulin 3.3 g/dL (1.3-4.6) 08/11/22 09:57 Lipase 13 U/L (13-60) 08/11/22 09:57 Urine Color Yellow (Yellow) 08/11/22 10:25 Urine Appearance Sl hazy (CLEAR) A 08/11/22 10:25 Urine pH 5 (5-7) 08/11/22 10:25 Ur Specific [place] 1.015 (1.005-1.030) 08/11/22 10:25 Urine Protein Neg (Negative) 08/11/22 10:25 Urine Glucose (UA) 4+ (Normal) H 08/11/22 10:25 Urine Ketones 1+ (Negative) H 08/11/22 10:25 Urine Blood 2+ (Negative) H 08/11/22 10:25 Urine Nitrate Negative (Negative) 08/11/22 10:25 Urine Bilirubin Neg (Negative) 08/11/22 10:25 Urine Urobilinogen 1 mg/dL (Negative) H 08/11/22 10:25 Ur Leukocyte Esterase Negative (Negative) 08/11/22 10:25 Urine RBC 0-4 /hpf (0-2) H 08/11/22 10:25 Urine WBC 5-10 /hpf (0-5) H 08/11/22 10:25 Ur Squamous Epith Cells 5-10 /hpf (0-5) H 08/11/22 10:25 Amorphous Sediment Not Reportable 08/11/22 10:25 Urine Bacteria Tr /hpf (NONE) 08/11/22 10:25 Urine Yeast 1+ /hpf H 08/11/22 10:25 Urine Sperm None /hpf 08/11/22 10:25 Ur Oval Fat Bodies None /hpf 08/11/22 10:25 Discharge Plan Discharge Patient Disposition: Home Clinical Impression: Gastroparesis, Hyperglycemia, Vomiting Condition: Stable Prescriptions: New ondansetron 4 mg tablet,disintegrating 4 mg PO Q6H PRN (Reason: nausea and vomiting) Qty: 14 0RF No Action oxybutynin chloride 10 mg tablet extended release 24hr 10 mg PO DAILY lisinopril 10 mg tablet 10 mg PO DAILY Restasis MultiDose 0.05 % drops 1 drp ophthalmic (eye) Q12H diazepam 10 mg tablet 10 mg PO DAILY PRN (Reason: Anxiety) escitalopram oxalate [Lexapro] 20 mg tablet 20 mg PO DAILY trazodone 150 mg tablet 150 mg PO BEDTIME aripiprazole [Abilify] 5 mg tablet 5 mg PO DAILY losartan 25 mg tablet 25 mg PO DAILY venlafaxine [Effexor XR] 37.5 mg capsule,extended release 24hr 150 mg PO BID verapamil 120 mg capsule,ext rel. pellets 24 hr 240 mg PO DAILY pantoprazole [Protonix] 40 mg tablet,delayed release (DR/EC) 40 mg PO BID 14 Days Qty: 28 0RF (DME) Dexcom G7 Program Director/Air Personality Misc See Rx Instructions .Route Qty: 1 0RF Rx Instructions: As directed (DME) Dexcom G7 Sensor Device See Rx Instructions .ROUTE .MEDSUPPLY Qty: 6 0RF Rx Instructions: Change every 10days atorvastatin 20 mg tablet 20 mg PO DAILY Levemir FlexTouch U-100 Insuln 100 unit/mL (3 mL) insulin pen 80 unit SUBCUT BID glipizide 10 mg tablet 10 mg PO BID famotidine 20 mg tablet 20 mg PO DAILY nystatin 100,000 unit/gram cream 1 applic TOPICAL DAILY clonazepam 2 mg tablet 2 mg PO TID PRN (Reason: Anxiety) Discharge Orders: Discharge ED (Routine); Ordered 08/11/22 Ordered By: Eliana Paulino Referrals: Henny Peter [Primary Care Provider] - Nupur Diaz MD [Physician] - 1-3 days Discharge Diet: Advance as tolerated Discharge Activity: Resume usual activity Patient Instructions: Acute Nausea and Vomiting (ED), Diabetic Hyperglycemia (ED) Coding Level of Care Code ED Telephone Sales Representative for Ericka Parker
[2022-08-11] MEDS: ondansetron 2 mg/ML SDV 2 mL 4 MG IVP (09:59)
[2022-08-11] MEDS: sodium chloride 0.9% 1,000 ML 999 ML IV (10:00)
[2022-08-11 10:03] VITALS: BP 113/69; PULSE 78; RESP 18; O2SAT 99
[2022-08-11 10:05] LABS: Basophils % 0.6 %; Eosinophils # 0.3 10^3/uL (0.0-0.8); Eosinophils % 4.1 %; Hematocrit 42.2 % (37.0-47.0); Hemoglobin 13.3 g/dL (11.5-15.3); Lymphocytes # 2.3 10^3/uL (0.8-4.8); Mean Corpuscular HGB Conc 31.5 g/dL (30.0-36.0); Mean Corpuscular Hemoglobin 25.1 pg (28.0-34.0); Mean Corpuscular Volume 79.6 fl (81-99); Mean Platelet Volume 8.6 fL (7.4-10.4); Monocytes # 0.5 10^3/uL (0.2-0.9); Neutrophils # 3.64 10^3/uL (1.8-7.7); Neutrophils % 53.9 %; Nucleated Red Blood Cells % 0 %; Platelet Count 291 10^3/cmm (130-400); Red Cell Distribution Width 14.4 % (12.1-15.1); White Blood Count 6.8 10^3/uL (4.0-10.0)
[2022-08-11 10:22] LABS: Alanine Aminotransferase 17 U/L (0-33); Albumin Level 3.9 g/dL (3.5-5.2); Alkaline Phosphatase 69 U/L (35-105); Aspartate Amino Transferase 15 U/L (0-32); Blood Urea Nitrogen 15 mg/dL (8-23); Calcium 9.1 mg/dL (8.5-10.5); Carbon Dioxide 21 mmol/L (22-29); Chloride 99 mmol/L (98-107); Globulin 3.3 g/dL (1.3-4.6); Glomerular Filtration Rate 84.2 mL/min (90-130); Glucose 308 mg/dL (65-115); Lipase 13 U/L (13-60); Osmolality Calculated 290 mOsm/kg (285-295); Sodium 134 mmol/L (136-145); Total Bilirubin 0.3 mg/dL (0.15-1.2); Total Protein 7.2 g/dL (6.6-8.7)
[2022-08-11 10:24] LABS: Anion Gap 18.7 (5-19); Potassium 4.7 mmol/L (3.5-5.1)
[2022-08-11 11:00] LABS: Blood Urine 2+ (Negative); Glucose Urine UA 4+ (Normal); Ketones Urine 1+ (Negative); Protein Urine Neg (Negative); Specific Gravity, Urine 1.015 (1.005-1.030); Urine Appearance SL Hazy (CLEAR); Urine Color Yellow (Yellow); pH Urine 5 (5-7)
[2022-08-11 11:01] LABS: Add Urine Microscopic? YES; Bilirubin Urine Neg (Negative); Leukocyte Esterase Urine Negative (Negative); Nitrate Urine Negative (Negative); Urobilinogen Urine 1 mg/dL (Negative)
[2022-08-11 11:02] LABS: Add Urine Culture? Yes; Bacteria Urine TR /hpf; RBC Urine 0-4 /hpf (0-2)
[2022-08-11 11:03] VITALS: BP 100/66; PULSE 81; RESP 16; O2SAT 94
[2022-08-11 11:11] LABS: Glucose Point of Care 293 mg/dL (70-110)
[2022-08-11 11:33] VITALS: BP 106/68; PULSE 75; RESP 16; O2SAT 100
[2022-08-11 11:46] VITALS: BP 106/68; PULSE 73; RESP 18; O2SAT 99
== END 2022-08-11 11:47 | disposition home or self-care (01) ==
PROVIDERS: Emergency Provider Emergency Medicine; PCP Family Medicine
DX: K31.84 Gastroparesis (principal); E11.65 Type 2 diabetes mellitus with hyperglycemia; Z79.4 Long term (current) use of insulin; Z79.84 Long term (current) use of oral hypoglycemic drugs; I10 Essential (primary) hypertension; E78.5 Hyperlipidemia, unspecified; E11.42 Type 2 diabetes mellitus with diabetic polyneuropathy; Z98.51 Tubal ligation status
CPT/HCPCS: 36416; 80053; 81001; 82962; 83690; 85025; 87077; 87086; 87186; 96361; 96374; 99215; 99284; J2405; J7030

== ENCOUNTER → 2022-08-26 10:30 | Outpatient (BNVA) | payer MEDICARE, MEDICAID, SELFPAY | PROVIDERS: Visit Provider Internal Medicine | DX: E11.9 Type 2 diabetes mellitus without complications (principal); E78.5 Hyperlipidemia, unspecified; K31.84 Gastroparesis; Z98.51 Tubal ligation status; Z79.4 Long term (current) use of insulin | CPT/HCPCS: 99214 ==

== ENCOUNTER → 2022-11-17 14:21 | Outpatient (BNVA) | payer MEDICARE, MEDICAID, SELFPAY | PROVIDERS: Visit Provider Internal Medicine | DX: E11.9 Type 2 diabetes mellitus without complications (principal); E78.5 Hyperlipidemia, unspecified; Z79.4 Long term (current) use of insulin; Z79.84 Long term (current) use of oral hypoglycemic drugs | CPT/HCPCS: 99214 ==

== ENCOUNTER 2022-12-20 08:41 | Emergency (ER) | payer MEDICARE, MEDICAID, SELFPAY ==
[2022-12-20 09:10] VITALS: BP 148/86; PULSE 85; TEMP 36.7; O2SAT 97; BMI 45.7
[2022-12-20 09:14] LABS: Glucose Point of Care 323 mg/dL (70-110)
--- NOTE | 2022-12-20 09:20 | ED_ITS ---
HPI - Weakness General: Chief complaint: Weakness Stated complaint: sugar issues Time Seen by Provider: 12/20/22 08:44 Source: patient Mode of arrival: wheelchair History of Present Illness: 67-year-old female presents emergency room complaining of generalized weakness. States she has been having more frequent urination blood sugars been poorly controlled she usually uses a long-acting insulin twice a day but did not take it this morning. She fell yesterday she is complaining of right leg pain. The triage nurses notes that the laughed however she told me specifically it was her right. She previous had a right knee arthroplasty complains of pain in the proximal femur near the hip as well as a little bit in the knee. She has been able to bear weight on it she did not strike her head did not lose conscious she admits she falls relatively frequently usually from her description sounds like they are mechanical ground-level falls. Complaint: generalized weakness Onset (ago): week(s) Duration: intermittent Location: generalized Relieving factors: none Exacerbating factors: none Associated symptoms: Reports myalgias (Right leg); Denies chest pain, chills, confusion, melena, decreased appetite, diaphoresis, dysuria, easy bruising, fever(s), headache(s), nausea, rash, short of breath, syncope or vomiting Review of Systems Const: Denies: fever(s), chills or diaphoresis Card: Denies: chest pain or syncope Resp: Denies: dyspnea GI: Denies: nausea, vomiting or melena : Denies: dysuria Musc: Denies: neck pain or back pain Skin/Breast: Denies: rash Neuro: Denies: headache(s) or confusion Hank/Lymph: Denies: easy bruising PFSH ED PFSH: Medical History Diabetes Difficulty in swallowing Encounter for screening colonoscopy Gastritis Hyperlipidemia Hypertension Surgical History History of colonoscopy History of knee replacement History of tubal ligation Family History Other Cancer Diabetes Hypertension Denies family history of CAD (coronary artery disease) Stroke Social History Smoking and tobacco status: never smoked Alcohol intake: never Substance/Drug Use: never Lives independently: Yes Household members: spouse Physical Exam Const: COMMON NORMALS: no acute distress GENERAL APPEARANCE: cooperative and comfortable ORIENTATION/CONSCIOUSNESS: Yes awake, Yes oriented to person, Yes oriented to place and Yes oriented to time HENMT: COMMON NORMALS: normocephalic, atraumatic and hearing grossly normal bilaterally HEAD & SCALP: normocephalic and atraumatic Resp: COMMON NORMALS: normal respiratory effort, No retractions, No use of accessory muscles and clear to auscultation bilaterally AUSCULTATION: clear to auscultation bilaterally Cardio: COMMON NORMALS: regular rate, regular rhythm and No murmurs present (Cardio) RATE: regular rate RHYTHM: regular rhythm GI: COMMON NORMALS: Soft to palpation and No hepatosplenomegaly present AUSCULTATION: Yes normoactive bowel sounds PALPATION: Yes Soft to palpation, No Tenderness to palpation present (GI), No Guarding due to palpation present (GI) and Yes No hepatosplenomegaly present Extremity: COMMON NORMALS: normal to inspection, capillary refill normal, no clubbing, cyanosis or edema, no calf tenderness and no pedal edema Neuro: SENSORIUM/ORIENTATION: Yes oriented to person, Yes oriented to place and Yes oriented to time Skin: COMMON NORMALS: no rashes or lesions noted GENERAL SKIN EXAM: no rashes or lesions noted Course Vital Signs: Vital signs: Vital Signs Temperature 98.1 F 12/20/22 09:10 Pulse Rate 85 12/20/22 09:10 Blood Pressure 148/86 12/20/22 09:10 Pulse Oximetry 97 12/20/22 09:10 Oxygen Delivery Me thod Room Air 12/20/22 09:10 MDM - Weakness Medical Decision Making Patient states she falls frequently x-rays do not show acute fracture. Laboratory test reviewed. Blood sugar was elevated which we did treat urine shows contamination. She is not having any urinary tract symptoms we did not treat at this time. We will discharge patient home patient feels safe to Medical Records I reviewed the patient's medical records. Lab Data I reviewed the patient's lab results. 12/20/22 09:40 12/20/22 09:40 Radiology Impressions Hip/Pelvis X-Ray 12/20/22 09:24 IMPRESSION: No acute findings. Knee X-Ray 12/20/22 09:24 IMPRESSION: 1. Status post right knee arthroplasty without radiographic evidence of hardware complication. 2. No acute osseous fracture or dislocation. Laboratory Results WBC 7.08 10^3/uL (3.29-11.43) 12/20/22 09:40 RBC 5.61 10^6/uL (3.85-5.65) 12/20/22 09:40 Hgb 13.90 g/dL (11.27-16.99) 12/20/22 09:40 Hct 43.1 % (36-47) 12/20/22 09:40 MCV 76.8 fl (85-98) L 12/20/22 09:40 MCH 24.8 pg (27-33) L 12/20/22 09:40 MCHC 32.3 g/dL (30-55) 12/20/22 09:40 RDW 14.0 % (12.1-15.1) 12/20/22 09:40 Plt Count 270 10^3/cmm (157-399) 12/20/22 09:40 MPV 8.1 fL (7.4-10.4) 12/20/22 09:40 Neut % (Auto) 52.5 % 12/20/22 09:40 Lymph % (Auto) 36.3 % 12/20/22 09:40 [place] % (Auto) 6.1 % 12/20/22 09:40 Eos % (Auto) 3.5 % 12/20/22 09:40 Baso % (Auto) 1.3 % 12/20/22 09:40 Neut # (Auto) 3.72 10^3/uL (1.8-7.7) 12/20/22 09:40 Lymph # (Auto) 2.6 10^3/uL (0.8-4.8) 12/20/22 09:40 [place] # (Auto) 0.4 10^3/uL (0.2-0.9) 12/20/22 09:40 Eos # (Auto) 0.3 10^3/uL (0.0-0.8) 12/20/22 09:40 Baso # (Auto) 0.1 10^3/uL (0.0-0.1) 12/20/22 09:40 Nucleated RBC % (auto) 0 % 12/20/22 09:40 Nucleated RBCs # 0.0 /100WBC 12/20/22 09:40 Sodium 134 mmol/L (136-145) L 12/20/22 09:40 Potassium 4.8 mmol/L (3.5-5.1) 12/20/22 09:40 Chloride 96 mmol/L (98-107) L 12/20/22 09:40 Carbon Dioxide 28 mmol/L (22-29) 12/20/22 09:40 Anion Gap 14.8 (5-19) 12/20/22 09:40 BUN 33 mg/dL (8-23) H 12/20/22 09:40 Creatinine 0.7 mg/dL (0.5-0.9) 12/20/22 09:40 GFR Calculation 84.0 mL/min (90-130) L 12/20/22 09:40 Glucose 310 mg/dL (65-115) H 12/20/22 09:40 POC Glucose 323 mg/dL (70-110) H 12/20/22 09:09 Calculated Osmolality 297 mOsm/kg (285-295) H 12/20/22 09:40 Calcium 10.1 mg/dL (8.5-10.5) 12/20/22 09:40 Total Bilirubin 0.2 mg/dL (0.15-1.2) 12/20/22 09:40 AST 12 U/L (0-32) 12/20/22 09:40 ALT 13 U/L (0-33) 12/20/22 09:40 Alkaline Phosphatase 67 U/L (35-105) 12/20/22 09:40 Total Protein 7.8 g/dL (6.6-8.7) 12/20/22 09:40 Albumin 4.3 g/dL (3.5-5.2) 12/20/22 09:40 Globulin 3.5 g/dL (1.3-4.6) 12/20/22 09:40 Urine Color Light yellow (Yellow) 12/20/22 10:31 Urine Appearance Sl hazy (CLEAR) A 12/20/22 10:31 Urine pH 5 (5-7) 12/20/22 10:31 Ur Specific [place] 1.015 (1.005-1.030) 12/20/22 10:31 Urine Protein Neg (Negative) 12/20/22 10:31 Urine Glucose (UA) 4+ (Normal) H 12/20/22 10:31 Urine Ketones Negative (Negative) 12/20/22 10:31 Urine Blood 2+ (Negative) H 12/20/22 10:31 Urine Nitrate Negative (Negative) 12/20/22 10:31 Urine Bilirubin Neg (Negative) 12/20/22 10:31 Urine Urobilinogen Norm mg/dL (Negative) 12/20/22 10:31 Ur Leukocyte Esterase Trace (Negative) H 12/20/22 10:31 Urine RBC 0-4 /hpf (0-2) H 12/20/22 10:31 Urine WBC 15-25 /hpf (0-5) H 12/20/22 10:31 Ur Squamous Epith Cells 5-10 /hpf (0-5) H 12/20/22 10:31 Ur Transition Epith Cell 0-4 /hpf 12/20/22 10:31 Amorphous Sediment Not Reportable 12/20/22 10:31 Urine Bacteria 1+ /hpf (NONE) H 12/20/22 10:31 Other Casts Wbc cast /lpf 12/20/22 10:31 All radiology interpretation(s) finalized by discharge Discharge Plan Discharge Patient Disposition: Home Clinical Impression: Fall, Acute pain of right hip, Diabetes mellitus Condition: Stable Prescriptions: No Action oxybutynin chloride 10 mg tablet extended release 24hr 10 mg PO DAILY lisinopril 10 mg tablet 10 mg PO DAILY Restasis MultiDose 0.05 % drops 1 drp ophthalmic (eye) Q12H diazepam 10 mg tablet 10 mg PO DAILY PRN (Reason: Anxiety) escitalopram oxalate [Lexapro] 20 mg tablet 20 mg PO DAILY trazodone 150 mg tablet 150 mg PO BEDTIME aripiprazole [Abilify] 5 mg tablet 5 mg PO DAILY losartan 25 mg tablet 25 mg PO DAILY venlafaxine [Effexor XR] 37.5 mg capsule,extended release 24hr 150 mg PO BID verapamil 120 mg capsule,ext rel. pellets 24 hr 240 mg PO DAILY pantoprazole [Protonix] 40 mg tablet,delayed release (DR/EC) 40 mg PO BID 14 Days Qty: 28 0RF (DME) Dexcom G7 Storage Engineer Misc See Rx Instructions .ROUTE .COMPLEX Qty: 1 0RF Dose Instruction: USE DIRECTED Rx Instructions: USE DIRECTED (DME) Dexcom G7 Sensor Device See Rx Instructions .ROUTE .MEDSUPPLY Qty: 6 0RF Rx Instructions: Change every 10days Levemir FlexPen 100 unit/mL (3 mL) insulin pen 60 unit SUBCUT BID fluconazole 150 mg tablet 150 mg PO Q3D glipizide 10 mg tablet 20 mg PO BID atorvastatin 20 mg tablet 20 mg PO DAILY famotidine 20 mg tablet 20 mg PO DAILY nystatin 100,000 unit/gram cream 1 applic TOPICAL DAILY clonazepam 2 mg tablet 2 mg PO TID PRN (Reason: Anxiety) ondansetron 4 mg tablet,disintegrating 4 mg PO Q6H PRN (Reason: nausea and vomiting) Qty: 14 0RF Discharge Orders: Discharge ED (Routine); Ordered 12/20/22 Ordered By: Keyshawn Valdovinos Discharge Diet: Usual diet Discharge Activity: Increase activity as tolerated Patient Instructions: Opioid Safety, Pain Management Coding Level of Care Code ED Contracting Engineer for Ericka Parker
--- NOTE | 2022-12-20 09:24 | XRR_ITS ---
PROCEDURE INFORMATION: Exam: XR Right Knee Exam date and time: 12/20/2022 9:51 AM Age: 67 years old Clinical indication: Injury or trauma; Fall; Blunt trauma; Knee; Right TECHNIQUE: Imaging protocol: Radiologic exam of the right knee. Views: 3 views. COMPARISON: No relevant prior studies available. FINDINGS: Bones/joints: Status post right knee arthroplasty. No acute osseous fracture or hardware fracture identified. No evidence of perihardware loosening. No significant knee joint effusion. Soft tissues: Superficial soft tissues are within normal limits. XR/XR knee RT 3V* [id number] IMPRESSION: 1. Status post right knee arthroplasty without radiographic evidence of hardware complication. 2. No acute osseous fracture or dislocation.
--- NOTE | 2022-12-20 09:24 | XRR_ITS ---
PROCEDURE INFORMATION: Exam: XR Right Hip Exam date and time: 12/20/2022 9:58 AM Age: 67 years old Clinical indication: Injury or trauma; Fall; Blunt trauma (contusions or hematomas); Right; Hip TECHNIQUE: Imaging protocol: Radiologic exam of the right hip. Views: 1 view hip with pelvis when performed. COMPARISON: [place] [id number] 12/22/2020 10:00 AM FINDINGS: Bones/joints: Unremarkable. No acute fracture. Soft tissues: Unremarkable. XR/XR hip RT 2-3V wo/w pel* [id number] IMPRESSION: No acute findings.
[2022-12-20 10:00] LABS: Basophils # 0.1 10^3/uL (0.0-0.1); Basophils % 1.3 %; Eosinophils # 0.3 10^3/uL (0.0-0.8); Eosinophils % 3.5 %; Hematocrit 43.1 % (36-47); Lymphocytes # 2.6 10^3/uL (0.8-4.8); Lymphocytes % 36.3 %; Mean Corpuscular HGB Conc 32.3 g/dL (30-55); Mean Corpuscular Hemoglobin 24.8 pg (27-33); Mean Corpuscular Volume 76.8 fl (85-98); Mean Platelet Volume 8.1 fL (7.4-10.4); Monocytes # 0.4 10^3/uL (0.2-0.9); Monocytes % 6.1 %; Neutrophils # 3.72 10^3/uL (1.8-7.7); Neutrophils % 52.5 %; Nucleated Red Blood Cells % 0 %; Platelet Count 270 10^3/cmm (157-399); Red Blood Count 5.61 10^6/uL (3.85-5.65); White Blood Count 7.08 10^3/uL (3.29-11.43)
[2022-12-20 10:13] LABS: Alanine Aminotransferase 13 U/L (0-33); Albumin Level 4.3 g/dL (3.5-5.2); Alkaline Phosphatase 67 U/L (35-105); Anion Gap 14.8 (5-19); Blood Urea Nitrogen 33 mg/dL (8-23); Calcium 10.1 mg/dL (8.5-10.5); Carbon Dioxide 28 mmol/L (22-29); Chloride 96 mmol/L (98-107); Globulin 3.5 g/dL (1.3-4.6); Glucose 310 mg/dL (65-115); Osmolality Calculated 297 mOsm/kg (285-295); Potassium 4.8 mmol/L (3.5-5.1); Sodium 134 mmol/L (136-145); Total Bilirubin 0.2 mg/dL (0.15-1.2); Total Protein 7.8 g/dL (6.6-8.7)
[2022-12-20 10:21] LABS: Aspartate Amino Transferase 12 U/L (0-32)
[2022-12-20] MEDS: insulin regular-human 100 units/1 mL 10 UNIT IVP (10:24)
[2022-12-20 10:46] LABS: Urine Color Light yellow (Yellow)
[2022-12-20 10:47] LABS: Add Urine Microscopic? YES; Bilirubin Urine Neg (Negative); Blood Urine 2+ (Negative); Glucose Urine UA 4+ (Normal); Ketones Urine Negative (Negative); Leukocyte Esterase Urine Trace (Negative); Nitrate Urine Negative (Negative); Protein Urine Neg (Negative); Specific Gravity, Urine 1.015 (1.005-1.030); Urine Appearance SL Hazy (CLEAR); Urobilinogen Urine Norm (Negative); pH Urine 5 (5-7)
[2022-12-20 11:03] LABS: RBC Urine 0-4 /hpf (0-2); WBC Urine 15-25 /hpf (0-5)
[2022-12-20 11:04] LABS: Bacteria Urine 1+ /hpf; Other Casts Urine WBC CAST /lpf; Transitional Epi Cells Urine 0-4 /hpf
[2022-12-20 11:05] LABS: Add Urine Culture? Yes
== END 2022-12-20 11:53 | disposition home or self-care (01) ==
PROVIDERS: Emergency Provider Family Medicine
DX: M25.551 Pain in right hip (principal); E11.9 Type 2 diabetes mellitus without complications; Z79.4 Long term (current) use of insulin; Z79.84 Long term (current) use of oral hypoglycemic drugs; Z96.651 Presence of right artificial knee joint; E78.5 Hyperlipidemia, unspecified; I10 Essential (primary) hypertension
CPT/HCPCS: 36415; 36416; 73502; 73562; 80053; 81001; 82962; 85025; 87086; 96374; 99284; J1815

== ENCOUNTER → 2023-04-17 10:37 | Outpatient (BNVA) | payer MEDICARE, MEDICAID, SELFPAY | PROVIDERS: PCP Internal Medicine; Visit Provider Internal Medicine | DX: E11.9 Type 2 diabetes mellitus without complications (principal); E78.5 Hyperlipidemia, unspecified; K31.84 Gastroparesis; Z79.4 Long term (current) use of insulin; Z79.84 Long term (current) use of oral hypoglycemic drugs | CPT/HCPCS: 99214 ==

== ENCOUNTER → 2023-07-18 11:56 | Outpatient (BNVA) | payer MEDICARE, MEDICAID, SELFPAY | PROVIDERS: PCP Internal Medicine; Visit Provider Internal Medicine | DX: E11.9 Type 2 diabetes mellitus without complications (principal); E78.5 Hyperlipidemia, unspecified; K31.84 Gastroparesis; R26.89 Other abnormalities of gait and mobility; M62.81 Muscle weakness (generalized); Z79.4 Long term (current) use of insulin | CPT/HCPCS: 99215 ==

== ENCOUNTER 2023-07-18 13:15 | Emergency (ER) | payer MEDICARE, MEDICAID, SELFPAY ==
[2023-07-18] VITALS (7 sets, daily range): BP systolic 99–159; BP diastolic 72–81; PULSE 79–95; RESP 16–18; TEMP 36.7; O2SAT 93–98
--- NOTE | 2023-07-18 13:23 | CTR_ITS ---
PROCEDURE INFORMATION: Exam: CT Head Without Contrast Exam date and time: 07/18/2023 1:29 PM Age: 67 years old Clinical indication: Stroke-like symptoms; Other: Symptoms of acute stroke TECHNIQUE: Imaging protocol: Computed tomography of the head without contrast. Radiation optimization: All CT scans at this facility use at least one of these dose optimization techniques: automated exposure control; mA and/or kV adjustment per patient size (includes targeted exams where dose is matched to clinical indication); or iterative reconstruction. Other technique: STROKE PROTOCOL was implemented. COMPARISON: CT head wo con* [id number] 04/14/2022 12:58 PM RADIATION DOSE METRICS: Total DLP (mGy-cm): 986 FINDINGS: Brain: Diffuse cerebral atrophy, consistent with patient's age. No hemorrhage. Preserved eckert-white matter differentiation. Mild bilateral cerebral white matter hypodensities likely on the basis of chronic microvascular ischemic change. No mass effect. Cerebral ventricles: Ventricles are in proportion to the degree of atrophy. Paranasal sinuses: Visualized sinuses are unremarkable. No fluid levels. Mastoid air cells: Visualized mastoid air cells are well aerated. Orbital cavities: Bilateral lens replacement. Bones: Unremarkable. No acute fracture. Soft tissues: Unremarkable. Vasculature: Mild bilateral ICA calcifications. CT/CT head thrombolytic [id number] IMPRESSION: No acute intracranial findings. ASSESSMENT: ASPECTS ([place] Stroke Program Early CT Score) is 10.
--- NOTE | 2023-07-18 13:39 | ED_ITS ---
HPI - Neuro Symptoms/Deficit 2 General: Chief Complaint: Neuro Symptoms/Deficit Stated Complaint: dr reji denton, neuro symptoms Time Seen by Provider: 07/18/23 13:23 Source: patient Mode of arrival: ambulatory History of Present Illness: 67-year-old female presents emergency ro om from the endocrinology office. States that this morning around 10:00 she began to feel weak confused and dizzy this is HibTITER throughout the day she is unsteady on her feet normally she uses a cane she did not have that available here she was directed to the emergency room with concern of a stroke. Her NIH score on arrival here is 0. She has been a little bit nauseous. She is unsteady on her feet but admits that usually she uses a cane. She also admits to being generally weak. Onset (ago): hour(s) (3.5) Time: 13:15 Last Observed Normal: 10:00 Location: altered Severity: mild Quality: weak Relieving factors: none Exacerbating factors: none On Anticoagulants: No Associated symptoms: Deny chest pain, cough, diaphoresis, fevers/chills, headache(s), anorexia, malaise, nausea, seizures, short of breath, syncope, tingling, vertigo, vomiting or weakness Treatments Prior to Arrival: none Review of Systems 2 Const: Denies: malaise or diaphoresis Card: Denies: chest pain or syncope Resp: Denies: dyspnea GI: Denies: nausea or vomiting : Denies: dysuria, urinary frequency or urinary urgency Musc: Denies: neck pain or back pain Skin/Breast: Denies: rash Neuro: Denies: headache(s) or vertigo PFSH ED 2 PFSH: Medical History Hypertension Hyperlipidemia Diabetes Gastritis Encounter for screening colonoscopy Difficulty in swallowing Surgical History History of tubal ligation History of knee replacement History of colonoscopy Family History Other Cancer Diabetes Hypertension Denies family history of CAD (coronary artery disease) Stroke Social History Smoking and tobacco/nicotine status: never used tobacco/nicotine Alcohol intake: never Substance/Drug Use: never Lives independently: Yes Household members: spouse NIH stroke score 2 NIHSS: Level Of Consciousness - 1a: 0 Level Of Consciousness Questions - 1b: Both Correct Level Of Consciousness Commands - 1c: Both Correct Best Gaze - 2: Normal Visual Youssef - 3: No Visual Loss Facial Palsy - 4: N ormal Motor Arm Right - 5: No Drift Motor Arm Left - 5: No Drift Motor Leg Right - 6: No Drift Motor Leg Left - 6: No Drift Limb Ataxia - 7: A bsent Sensory - 8: Normal Best Language - 9: No Aphasia Dysarthia - 10: Normal Extinction And Inattention - 11: 0 Score: Total Score: 0 Physical Exam 2 Const: COMMON NORMALS: no acute distress GENERAL APPEARANCE: cooperative and comfortable ORIENTATION/CONSCIOUSNESS: Yes awake, Yes oriented to person, Yes oriented to place and Yes oriented to time HENMT: COMMON NORMALS: normocephalic, atraumatic and hearing grossly normal bilaterally HEAD & SCALP: normocephalic and atraumatic Resp: COMMON NORMALS: normal respiratory effort, No retractions, No use of accessory muscles and clear to auscultation bilaterally AUSCULTATION: clear to auscultation bilaterally Cardio: COMMON NORMALS: regular rate, regular rhythm and No murmurs present (Cardio) RATE: regular rate RHYTHM: regular rhythm GI: COMMON NORMALS: Soft to palpation and No hepatosplenomegaly present A USCULTATION: Yes normoactive bowel sounds PALPATION: Yes Soft to palpation, No Tenderness to palpation present (GI), No Guarding due to palpation present (GI) and Yes No hepatosplenomegaly present Extremity: COMMON NORMALS: normal to inspection, capillary refill normal, no clubbing, cyanosis or edema, no calf tenderness and no pedal edema Neuro: SENSORIUM/ORIENTATION: Yes oriented to person, Yes oriented to place and Yes oriented to time Skin: COMMON NORMALS: no rashes or lesions noted GENERAL SKIN EXAM: no rashes or lesions noted Course 2 Vital Signs: Vital signs: Vital Signs Temperature 98.1 F 07/18/23 13:41 Pulse Rate 79 07/18/23 16:06 Respiratory Rate 18 07/18/23 16:06 Blood Pressure 136/75 07/18/23 16:06 Pulse Oximetry 97 07/18/23 16:06 Oxygen Delivery Me thod Room Air 07/18/23 16:06 MDM - Neuro Symptoms/Deficit Medical Decision Making Stroke score is 0 CT of the head is negative. Blood sugar is elevated no sign of ketosis or DKA. Will discharge patient home we did give fluids and insulin blood sugar improved significantly. Follow-up with primary care. Medical Records I reviewed the patient's medical records. Lab Data I reviewed the patient's lab results. 07/18/23 13:54 07/18/23 13:[address] 07/18/23 13:23 IMPRESSION: No acute intracranial findings. ASSESSMENT: ASPECTS ([place] Stroke Program Early CT Score) is 10. ADDENDUM: 07/18/23 1348 THIS REPORT CONTAINS FINDINGS THAT MAY BE CRITICAL TO PATIENT CARE. The findings were verbally communicated via telephone conference with MAX GORE at 1:46 PM CDT on 07/18/2023. The findings were acknowledged and understood. Laboratory Results WBC 7.82 10^3/uL (3.29-11.43) 07/18/23 13:54 RBC 4.94 10^6/uL (3.85-5.65) 07/18/23 13:54 Hgb 12.80 g/dL (11.27-16.99) 07/18/23 13:54 Hct 38.4 % (36-47) 07/18/23 13:54 MCV 77.7 fl (85-98) L 07/18/23 13:54 MCH 25.9 pg (27-33) L 07/18/23 13:54 MCHC 33.3 g/dL (30-55) 07/18/23 13:54 RDW 14.3 % (12.1-15.1) 07/18/23 13:54 Plt Count 230 10^3/cmm (157-399) 07/18/23 13:54 MPV 8.9 fL (7.4-10.4) 07/18/23 13:54 Neut % (Auto) 64.5 % 07/18/23 13:54 Lymph % (Auto) 25.1 % 07/18/23 13:54 [place] % (Auto) 6.3 % 07/18/23 13:54 Eos % (Auto) 2.9 % 07/18/23 13:54 Baso % (Auto) 0.8 % 07/18/23 13:54 Neut # (Auto) 5.05 10^3/uL (1.8-7.7) 07/18/23 13:54 Lymph # (Auto) 2.0 10^3/uL (0.8-4.8) 07/18/23 13:54 [place] # (Auto) 0.5 10^3/uL (0.2-0.9) 07/18/23 13:54 Eos # (Auto) 0.2 10^3/uL (0.0-0.8) 07/18/23 13:54 Baso # (Auto) 0.1 10^3/uL (0.0-0.1) 07/18/23 13:54 Nucleated RBC % (auto) 0 % 07/18/23 13:54 Nucleated RBCs # 0.0 /100WBC 07/18/23 13:54 PT 13.00 SECONDS (12.1-14.9) 07/18/23 13:54 INR 0.95 (0.8-1.2) 07/18/23 13:54 APTT 27.2 SECONDS (23.9-36.7) 07/18/23 13:54 Specimen Type Arterial 07/18/23 14:02 Sample Site Radial, left 07/18/23 14:02 ABG pH 7.39 (7.35-7.45) 07/18/23 14:02 ABG pCO2 40.5 mmHg (35-45) 07/18/23 14:02 ABG pO2 66.7 mmHg (80.0-100.0) L 07/18/23 14:02 ABG PO2/FiO2 Ratio 0 07/18/23 14:02 ABG HCO3 24.2 mmol/L (22-26) 07/18/23 14:02 ABG O2 Saturation 93.8 07/18/23 14:02 ABG Base Excess -0.8 mmol/L (-2.0-2.0) 07/18/23 14:02 Stan Test Pos 07/18/23 14:02 A-a O2 Gradient 4.0 mmHg (5-10) L 07/18/23 14:02 Hematocrit 40.1 % (37-47) 07/18/23 14:02 Hgb O2 Saturation 92.4 % (95-100) L 07/18/23 14:02 Carboxyhemoglobin 1.0 %THgb (0.4-20.1) 07/18/23 14:02 Methemoglobin 0.4 % (0.4-1.5) 07/18/23 14:02 Total Hemoglobin 13.1 g/dL (12-16) 07/18/23 14:02 Sodium 128.0 mmol/L (131-143) L 07/18/23 14:02 Potassium 4.5 mmol/L (3.5-5.0) 07/18/23 14:02 Glucose 624.0 mg/dL (70-115) H 07/18/23 14:02 Ionized Calcium 1.3 mmol/L (1.1-1.4) 07/18/23 14:02 O2 Delivery Device Room air 07/18/23 14:02 FiO2 21.0 % 07/18/23 14:02 Air Traffic Control Manager ID [place] 07/18/23 14:02 Sodium 128 mmol/L (136-145) L 07/18/23 13:54 Potassium 4.8 mmol/L (3.5-5.1) 07/18/23 13:54 Chloride 92 mmol/L (98-107) L 07/18/23 13:54 Carbon Dioxide 23 mmol/L (22-29) 07/18/23 13:54 Anion Gap 17.8 (5-19) 07/18/23 13:54 BUN 27 mg/dL (8-23) H 07/18/23 13:54 Creatinine 0.9 mg/dL (0.5-0.9) 07/18/23 13:54 GFR Calculation 62.8 mL/min (90-130) L 07/18/23 13:54 Glucose 725 mg/dL (65-115) H* 07/18/23 13:54 POC Glucose 503 mg/dL (70-110) H* 07/18/23 16:06 Calculated Osmolality 306 mOsm/kg (285-295) H 07/18/23 13:54 Calcium 9.2 mg/dL (8.5-10.5) 07/18/23 13:54 Total Bilirubin 0.3 mg/dL (0.15-1.2) 07/18/23 13:54 AST 12 U/L (0-32) 07/18/23 13:54 ALT 27 U/L (0-33) 07/18/23 13:54 Alkaline Phosphatase 70 U/L (35-105) 07/18/23 13:54 Total Protein 7.2 g/dL (6.6-8.7) 07/18/23 13:54 Albumin 4.0 g/dL (3.5-5.2) 07/18/23 13:54 Globulin 3.2 g/dL (1.3-4.6) 07/18/23 13:54 Urine Color Light yellow (Yellow) 07/18/23 14:29 Urine Appearance Clear (CLEAR) 07/18/23 14:29 Urine pH 6.5 (5-7) 07/18/23 14:29 Ur Specific [place] 1.005 (1.005-1.030) 07/18/23 14:29 Urine Protein Neg (Negative) 07/18/23 14:29 Urine Glucose (UA) 4+ (Normal) H 07/18/23 14:29 Urine Ketones Negative (Negative) 07/18/23 14:29 Urine Blood 2+ (Negative) H 07/18/23 14:29 Urine Nitrate Negative (Negative) 07/18/23 14:29 Urine Bilirubin Neg (Negative) 07/18/23 14:29 Urine Urobilinogen Neg mg/dL (Negative) 07/18/23 14:29 Ur Leukocyte Esterase Negative (Negative) 07/18/23 14:29 Urine RBC 0-4 /hpf (0-2) H 07/18/23 14:29 Urine WBC 0-4 /hpf (0-5) H 07/18/23 14:29 Ur Squamous Epith Cells 0-4 /hpf (0-5) H 07/18/23 14:29 Amorphous Sediment Not Reportable 07/18/23 14:29 Urine Bacteria Trace /hpf (NONE) 07/18/23 14:29 Urine Opiates Screen Negative ng/mL (Negative) 07/18/23 14:29 Ur Barbiturates Screen Negative ng/mL (Negative) 07/18/23 14:29 Ur Phencyclidine Scrn Negative ng/mL (Negative) 07/18/23 14:29 Ur Amphetamines Screen Negative ng/mL (Negative) 07/18/23 14:29 U Benzodiazepines Scrn Negative ng/mL (Negative) 07/18/23 14:29 Urine Cocaine Screen Negative ng/mL (Negative) 07/18/23 14:29 U Marijuana (THC) Screen Negative ng/mL (Negative) 07/18/23 14:29 Serum Ketones Negative (Negative) 07/18/23 13:54 All radiology interpretation(s) finalized by discharge Discharge Plan Discharge Condition: Stable Prescriptions: No Action oxybutynin chloride 10 mg tablet extended release 24hr 10 mg PO DAILY lisinopril 10 mg tablet 10 mg PO DAILY escitalopram oxalate [Lexapro] 20 mg tablet 20 mg PO DAILY trazodone 150 mg tablet 150 mg PO BEDTIME venlafaxine [Effexor XR] 37.5 mg capsule,extended release 24hr 150 mg PO BID verapamil 120 mg capsule,ext rel. pellets 24 hr 240 mg PO DAILY pantoprazole [Protonix] 40 mg tablet,delayed release (DR/EC) 40 mg PO BID 14 Days Qty: 28 0RF (DME) Dexcom G7 Head Track Coach Misc See Rx Instructions .ROUTE .COMPLEX Qty: 1 0RF Dose Instruction: USE DIRECTED Rx Instructions: USE DIRECTED (DME) Dexcom G7 Sensor Device See Rx Instructions .ROUTE .COMPLEX Qty: 6 0RF Dose Instruction: USE DIRECTED CHANGE EVERY 10 DAYS Rx Instructions: USE DIRECTED CHANGE EVERY 10 DAYS Humulin R U-500 (Conc) Kwikpen 500 unit/mL (3 mL) insulin pen See Rx Instructions .ROUTE .COMPLEX Qty: 23 0RF Dose Instruction: INJECT 65 UNITS (0.13ML) SUBCUTANEOUSLY TWICE DAILY 30 MINUTES BEFORE BREAKFAST AND DINNER Rx Instructions: INJECT 65 UNITS (0.13ML) SUBCUTANEOUSLY TWICE DAILY 30 MINUTES BEFORE BREAKFAST AND DINNER fluconazole 150 mg tablet 150 mg PO Q3D glipizide 10 mg tablet 20 mg PO BID atorvastatin 20 mg tablet 20 mg PO DAILY famotidine 20 mg tablet 20 mg PO DAILY clonazepam 2 mg tablet 2 mg PO TID PRN (Reason: Anxiety) ondansetron 4 mg tablet,disintegrating 4 mg PO Q6H PRN (Reason: nausea and vomiting) Qty: 14 0RF meloxicam 15 mg tablet 15 mg PO DAILY aripiprazole 10 mg tablet 10 mg PO DAILY Referrals: Senait Kan [Primary Care Provider] - Coding Level of Care Code ED Certified Tumor Registrar for Ericka Parker
--- NOTE | 2023-07-18 13:39 | ECG_ITS ---
[facility] Test Date: 2023-07-18 Pat Name: Eri Ko Department: Room: Gender: Female Vice President Quality: : 1955 Requested By: Keyshawn Byrd Order Number: [id number] Leticia MD: Zully Ng M.D. Measurements Intervals [place] Rate: 94 P: 23 CO: 168 QRS: -2 QRSD: 105 T: 29 QT: 377 QTc: 473 Interpretive Statements SINUS RHYTHM LOW QRS VOLTAGE IN PRECORDIAL LEADS [QRS DEFLECTION < 1.0 mV IN CHEST LEADS] POSSIBLE ANTERIOR MYOCARDIAL INFARCTION , PROBABLY OLD [30 ms Q WAVE IN V3/V4, OR R < 0.2 mV IN V4] INFERIOR MYOCARDIAL INFARCTION , PROBABLY OLD [40+ ms Q WAVE AND/OR ST/T ABNORMALITY IN II/aVF] No previous ECG available for comparison Electronically Signed On 07-18-2023 22:57:12 CDT by Zully Ng M.D. [id number]
[2023-07-18 13:45] LABS: Glucose Point of Care > 600 mg/dL (70-110)
[2023-07-18 14:10] LABS: Basophils # 0.1 10^3/uL (0.0-0.1); Basophils % 0.8 %; Eosinophils # 0.2 10^3/uL (0.0-0.8); Eosinophils % 2.9 %; Hematocrit 38.4 % (36-47); Lymphocytes % 25.1 %; Mean Corpuscular HGB Conc 33.3 g/dL (30-55); Mean Corpuscular Hemoglobin 25.9 pg (27-33); Mean Corpuscular Volume 77.7 fl (85-98); Mean Platelet Volume 8.9 fL (7.4-10.4); Monocytes # 0.5 10^3/uL (0.2-0.9); Monocytes % 6.3 %; Neutrophils # 5.05 10^3/uL (1.8-7.7); Neutrophils % 64.5 %; Nucleated Red Blood Cells % 0 %; Platelet Count 230 10^3/cmm (157-399); Red Blood Count 4.94 10^6/uL (3.85-5.65); Red Cell Distribution Width 14.3 % (12.1-15.1); White Blood Count 7.82 10^3/uL (3.29-11.43)
[2023-07-18 14:13] LABS: ABG PCO2 40.5 mmHg (35-45); ABG PH Result 7.39 (7.35-7.45); Arterial Blood Gas Hematocrit 40.1 % (37-47); Base Excess ABG -0.8 mmol/L (-2.0-2.0); Blood Gas Allen Test Pos; Blood Gas Operator Identificat WALCI; Blood Gas Sample Site Radial, left; Blood Gas Sample Type Arterial; HCO3 ABG 24.2 mmol/L (22-26); HGB O2 Sat 92.4 % (95-100); Ionized Calcium Level - ABG 1.3 mmol/L (1.1-1.4); Methemoglobin 0.4 % (0.4-1.5); Oxygen Device ROOM AIR; Oxygen Saturation ABG 93.8; PO2 ABG 66.7 mmHg (80.0-100.0); PO2 FiO2 Ratio Arterial Blood 0; Potassium Level - ABG 4.5 mmol/L (3.5-5.0); Total Hemoglobin 13.1 g/dL (12-16)
[2023-07-18 14:20] LABS: Ketone (Acetest) Serum Negative (Negative)
[2023-07-18 14:21] LABS: INR 0.95 (0.8-1.2)
--- NOTE | 2023-07-18 14:21 | PM.CONSULT ---
Providers/Reason For Consult Consulting Physician/Specialty*: Keny Caban MD neurology and epilepsy Reason for Consult*: Code stroke emergency department room #15 Primary Care Provider: Senait Kan History of Present Illness History of Present Illness Eri Ko is a 67 year old female with a history of hypertension and type 2 diabetes mellitus. Patient reported that on 07/18/2023 around 9 AM this morning she was trying to get dressed and had difficulty secondary to balance difficulty. She denied any focal weakness or speech difficulty. Patient was brought to the [facility] emergency room. Code stroke was initiated 1:21 PM on 07/18/2023. Noncontrast head CT was obtained and reported to reveal no acute findings. Serum glucose was reported to be greater than 600. NIH score = 0. Drug allergies: None Current medications: Aripiprazole 10 mg p.o. daily Lipitor 20 mg p.o. daily Klonopin 2 mg p.o. 3 times daily, as needed anxiety Lexapro 20 mg p.o. daily Pepcid 20 mg p.o. daily Fluconazole 150 mg p.o. every 3 days Glipizide 20 mg p.o. twice daily Insulin regular to be used as instructed Lisinopril 10 mg p.o. daily Mobic 15 mg p.o. daily Zofran 4 mg p.o. every 6 hours as needed Oxybutynin 10 mg p.o. daily Protonix 40 mg p.o. daily Trazodone 150 mg p.o. daily Effexor 37.5 mg tablets 150 mg p.o. twice daily Verapamil 120 mg tablets 2 p.o. daily Past medical history; Type 2 diabetes mellitus Hypertension Gastroparesis Hyperlipidemia Gastroesophageal reflux disease Gastric Bezoar Habits: None Family history: Negative for strokes Review of Systems General: Reports: 10 or more systems reviewed and unremarkable except in HPI and below Medications/Allergies Home Medications Medication Instructions Recorded Confirmed Last Taken Type escitalopram oxalate 20 mg tablet 20 mg PO DAILY 03/08/21 07/18/23 07/18/23 History (Lexapro) lisinopril 10 mg tablet 10 mg PO DAILY 03/08/21 07/18/23 07/18/23 History oxybutynin chloride 10 mg 10 mg PO DAILY 03/08/21 07/18/23 07/18/23 History tablet,extended release 24 hr trazodone 150 mg tablet 150 mg PO BEDTIME 03/08/21 07/18/23 07/17/23 History venlafaxine 37.5 mg 150 mg PO BID 03/08/21 07/18/23 07/18/23 History capsule,extended release 24 hr (Effexor XR) verapamil 120 mg 24 hr 240 mg PO DAILY 03/08/21 07/18/23 07/18/23 History capsule,extended release pantoprazole 40 mg tablet,delayed 40 mg PO BID 14 days #28 tabs 03/08/22 07/18/23 07/18/23 Rx release (Protonix) atorvastatin 20 mg tablet 20 mg PO DAILY 08/11/22 07/18/23 07/18/23 History clonazepam 2 mg tablet 2 mg PO TID PRN Anxiety 08/11/22 07/18/23 12/19/22 History famotidine 20 mg tablet 20 mg PO DAILY 08/11/22 07/18/23 07/18/23 History ondansetron 4 mg disintegrating 4 mg PO Q6H PRN nausea and 08/11/22 07/18/23 Unknown Rx tablet vomiting #14 tabs blood-glucose meter,continuous #1 ea 09/29/22 07/18/23 Unknown Rx (Dexcom G7 Generation Mechanic Helper) fluconazole 150 mg tablet 150 mg PO Q3D 12/20/22 07/18/23 Unknown History glipizide 10 mg tablet 20 mg PO BID 12/20/22 07/18/23 07/18/23 History blood-glucose sensor (Dexcom G7 #6 ea 05/12/23 07/18/23 Unknown Rx Sensor device) insulin regular hum U-500 conc 500 See Rx Instructions .Route 06/08/23 07/18/23 07/18/23 Rx unit/mL(3 mL) subcut pen (Humulin .COMPLEX #23 mL R U-500 (Conc) Insulin Kwikpen) aripiprazole 10 mg tablet 10 mg PO DAILY 07/18/23 07/18/23 07/18/23 History meloxicam 15 mg tablet 15 mg PO DAILY 07/18/23 07/18/23 07/18/23 History Allergies Allergy/AdvReac Type Severity Reaction Status Date / Time No Known Allergies Allergy Verified 07/18/23 12:10 PFSH Acute PFSH: Medical History Hypertension Hyperlipidemia Diabetes Gastritis Encounter for screening colonoscopy Difficulty in swallowing Surgical History History of tubal ligation History of knee replacement History of colonoscopy Family History Other Cancer Diabetes Hypertension Denies family history of CAD (coronary artery disease) Stroke Social History Smoking and tobacco/nicotine status: never used tobacco/nicotine Alcohol intake: never Substance/Drug Use: never Lives independently: Yes Household members: spouse Vitals/I&O/Wt Last Vital Signs Temp 98.1 F 07/18/23 13:41 Pulse 91 07/18/23 14:03 Resp 18 07/18/23 14:03 BP 99/77 07/18/23 14:03 Pulse Ox 93 07/18/23 14:03 O2 Del Method Room Air 07/18/23 14:03 Weight last 48 hrs Weight 237 lb Physical Exam Narrative: NIH score = 0 Serum glucose reported to be greater than 600 Blood pressure 159/81 heart rate 93 The patient is alert and oriented x 3. Speech fluent. Head normocephalic neck supple cranial nerves II through XII intact pupils 4 mm round reactive to light and accommodation. Extraocular movements intact. There were no nystagmus. There was signs of eye surgery bilaterally. Visual [place] full via confrontation. Motor testing 5/5 bilaterally. There was no drift. There was no signs of any ataxia. Deep tendon reflexes 1-2+ bilaterally plantar responses flexor bilaterally there was no clonus. Sensory examination was intact to touch. There was no extinction on double sensory stimulation. There was signs of bilateral knee surgery bilaterally. Throat clear. Lungs clear. Heart regular rhythm and rate. Extremities were negative for cyanosis. Data 07/18/23 13:54 07/18/23 13:54 A&P Assessment and plan (1) Balance problem: Impression: 1. Balance difficulty while attempting to get dressed on 07/18/2023 at 9 AM. Code stroke initiated at 1:21 PM on 07/18/2023. NIH score = 0. Serum glucose reported to be greater than 600. Note: Since the patient NIH score =0. The patient was not a candidate for thrombolytics and no thrombolytics were administered 2. Type 2 diabetes mellitus 3. Hypertension Plan: 1. Recommend obtaining 2D echocardiogram 2. Recommend obtaining carotid duplex study to assess for carotid or vertebral artery stenosis 3. Follow NIH stroke protocol although patient's symptoms suggestive of hypoglycemia 4. Manage blood sugar elevation 5. Have patient follow-up with family physician Consult Attestations Medical Necessity Statement: Patient evaluated by neurology for code stroke emergency department room #15 Coding Level of Care Code 01458 Diagnoses Balance problem R26.89
[2023-07-18 14:22] LABS: Partial Thromboplastin Time 27.2 SECONDS (23.9-36.7)
[2023-07-18] MEDS: sodium chloride 0.9% 1,000 ML 999 ML IV (14:23)
[2023-07-18] MEDS: insulin regular-human 100 units/1 mL 10 UNIT IVP (14:24)
[2023-07-18 14:33] LABS: Alanine Aminotransferase 27 U/L (0-33); Alkaline Phosphatase 70 U/L (35-105); Anion Gap 17.8 (5-19); Aspartate Amino Transferase 12 U/L (0-32); Blood Urea Nitrogen 27 mg/dL (8-23); Calcium 9.2 mg/dL (8.5-10.5); Carbon Dioxide 23 mmol/L (22-29); Chloride 92 mmol/L (98-107); Creatinine Clr Calc Pharmacy 75.9495; Globulin 3.2 g/dL (1.3-4.6); Glomerular Filtration Rate 62.8 mL/min (90-130); Osmolality Calculated 306 mOsm/kg (285-295); Potassium 4.8 mmol/L (3.5-5.1); Sodium 128 mmol/L (136-145); Total Bilirubin 0.3 mg/dL (0.15-1.2); Total Protein 7.2 g/dL (6.6-8.7)
[2023-07-18 14:35] LABS: Glucose 725 mg/dL (65-115)
[2023-07-18 14:48] LABS: Amphetamines Screen Urine Negative (Negative); Barbiturates Screen Urine Negative (Negative); Benzodiazepines Screen Urine Negative (Negative); Cocaine Screen Urine Negative (Negative); Opiate Screen Urine Negative (Negative); PCP Screen Urine Negative (Negative); THC Screen Urine Negative (Negative)
[2023-07-18 14:57] LABS: Glucose Point of Care 591 mg/dL (70-110)
[2023-07-18 15:02] LABS: Blood Urine 2+ (Negative); Glucose Urine UA 4+ (Normal); Ketones Urine Negative (Negative); Protein Urine Neg (Negative); Specific Gravity, Urine 1.005 (1.005-1.030); Urine Appearance Clear (CLEAR); Urine Color Light yellow (Yellow); pH Urine 6.5 (5-7)
[2023-07-18 15:03] LABS: Add Urine Microscopic? YES; Bilirubin Urine Neg (Negative); Leukocyte Esterase Urine Negative (Negative); Nitrate Urine Negative (Negative); Urobilinogen Urine Neg (Negative)
[2023-07-18 15:04] LABS: RBC Urine 0-4 /hpf (0-2); Squamous Epithelial Cell Urine 0-4 /hpf (0-5); WBC Urine 0-4 /hpf (0-5)
[2023-07-18 15:05] LABS: Add Urine Culture? No; Bacteria Urine TRACE /hpf
[2023-07-18 16:10] LABS: Glucose Point of Care 503 mg/dL (70-110)
[2023-07-18] MEDS: insulin lispro 100 unit/1 mL 10 UNIT SUBCUT (16:42)
--- NOTE | 2023-07-26 09:13 | DCPLANNER ---
Message sent to Neuro and Cardi for follow up and Holter monitor
--- NOTE | 2023-07-27 16:19 | DCPLANNER ---
order sent to [facility] for brain mri for er F/u
== END 2023-07-18 17:16 | disposition home or self-care (01) ==
PROVIDERS: Emergency Provider Family Medicine; PCP Internal Medicine
DX: R41.0 Disorientation, unspecified (principal); R53.1 Weakness; Z79.4 Long term (current) use of insulin; Z79.84 Long term (current) use of oral hypoglycemic drugs; I10 Essential (primary) hypertension; E78.5 Hyperlipidemia, unspecified; E11.9 Type 2 diabetes mellitus without complications
CPT/HCPCS: 36416; 36600; 70450; 80051; 80053; 80306; 81001; 82009; 82330; 82805; 82962; 85025; 85610; 85730; 93005; 96361; 96372; 96374; 99285; J1815; J7030

== ENCOUNTER → 2023-07-31 13:00 | Outpatient (BNVA) | payer MEDICARE, MEDICAID, SELFPAY | PROVIDERS: PCP Internal Medicine; Referring Provider Family Medicine; Visit Provider Internal Medicine Cardiovascular Disease | DX: G45.9 Transient cerebral ischemic attack, unspecified (principal); R42 Dizziness and giddiness; I49.1 Atrial premature depolarization; I49.3 Ventricular premature depolarization | CPT/HCPCS: 93225 ==

== ENCOUNTER 2023-08-09 12:40 | Emergency (ER) | payer MEDICARE, MEDICAID, SELFPAY ==
--- NOTE | 2023-08-09 12:48 | XR_ITS ---
WS: [email or web address] Exam: XR thoracic spine 3V* [id number] Date/Time of Exam: 08/09/2023 1:29 PM Reason For Exam: fall No acute fracture or dislocation. Mild spondylosis. No significant scoliosis. Normal paraspinal soft tissues. XR/XR thoracic spine 3V* [id number] IMPRESSION: 1. Minimal degenerative changes. 2. No fracture or malalignment.
--- NOTE | 2023-08-09 12:48 | XR_ITS ---
WS: [email or web address] Exam: XR lumbar spine 2-3V* [id number] Date/Time of Exam: 08/09/2023 1:29 PM Reason For Exam: fall No acute fracture. Degenerative disc changes at all levels and mild spondylosis. Facet arthropathy at all levels. Mild to moderate dextroscoliosis. XR/XR lumbar spine 2-3V* [id number] IMPRESSION: 1. No fracture or malalignment. 2. Moderate degenerative changes and dextroscoliosis.
[2023-08-09 13:08] VITALS: PULSE 92; RESP 16; TEMP 36.5; O2SAT 99
[2023-08-09 14:51] VITALS: BP 148/77; PULSE 96; RESP 17; O2SAT 100
--- NOTE | 2023-08-09 14:57 | ECG_ITS ---
[facility] Test Date: 2023-08-09 Pat Name: Eri Ko Department: Room: Gender: Female Market Development Manager: : 1955 Requested By: Eliana Paulino Order Number: [id number] Leticia MD: Rayshawn Rosas M.D. Measurements Intervals [place] Rate: 91 P: 38 MN: 173 QRS: 15 QRSD: 106 T: 75 QT: 367 QTc: 452 Interpretive Statements SINUS RHYTHM NONSPECIFIC T-WAVE ABNORMALITY Compared to ECG 07/18/2023 13:39:35 T-wave abnormality now present Myocardial infarct finding no longer present Electronically Signed On 08-09-2023 16:44:45 CDT by Rayshawn Rosas M.D. [id number]
[2023-08-09 15:00] VITALS: BP 124/72; PULSE 94; O2SAT 100
--- NOTE | 2023-08-09 15:02 | ED_ITS ---
HPI - Fall 2 General: Chief Complaint: Fall Stated Complaint: Back pain/ fall Time Seen by Provider: 08/09/23 14:46 Source: patient Mode of arrival: ambulatory Limitations: no limitations History of Present Illness: 67-year-old female who presents here aft er a fall today. States she fell and had some lightheadedness and hit her back. States she uses a cane does not use a walker she complains of low back pain currently denies any hip or chest or head pain denies hitting her head Associated symptoms-after fall: Denies abdominal pain, chest pain, headache(s) or neck pain Review of Systems 2 Const: Denies: fever(s), chills, body aches or change in appetite ENMT: Denies: throat pain or dental pain Card: Denies: chest pain Resp: Denies: dyspnea GI: Denies: abdominal pain, nausea, vomiting or diarrhea Musc: Reports: back pain; Denies: neck pain Skin/Breast: Denies: rash Neuro: Denies: headache(s) PFSH ED 2 PFSH: Medical History Hypertension Hyperlipidemia Diabetes Gastritis Encounter for screening colonoscopy Difficulty in swallowing Surgical History History of tubal ligation History of knee replacement History of colonoscopy Family History Other Cancer Diabetes Hypertension Denies family history of CAD (coronary artery disease) Stroke Social History Smoking and tobacco/nicotine status: never used tobacco/nicotine Alcohol intake: never Substance/Drug Use: never Lives independently: Yes Household members: spouse Physical Exam 2 Const: COMMON NORMALS: no acute distress, patient oriented x3 and healthy appearing HENMT: COMMON NORMALS: normocephalic and atraumatic HEAD & SCALP: n ormocephalic and atraumatic Neck/C-Spine: COMMON NORMALS: full ROM and supple Chest: COMMONS NORMALS: normal inspection of the chest Resp: COMMON NORMALS: normal respiratory effort Cardio: COMMON NORMALS: regular rate, regular rhythm and No murmurs present (Cardio) RATE: regular rate RHYTHM: regular rhythm Extremity: COMMON NORMALS: normal to inspection and full ROM Neuro: COMMON NORMALS: patient oriented x3, moves all extremities and no focal motor deficits Psych: COMMON NORMALS: mental status grossly normal, Normal thought process present and cooperative THOUGHT PROCESS: Normal thought process present Skin: COMMON NORMALS: no rashes or lesions noted and no wounds GENERAL SKIN EXAM: no rashes or lesions noted Course 2 Vital Signs: Vital signs: Vital Signs Temperature 97.7 F 08/09/23 13:08 Pulse Rate 92 08/09/23 16:00 Respiratory Rate 17 08/09/23 14:51 Blood Pressure 119/79 08/09/23 16:00 Pulse Oximetry 99 08/09/23 16:00 Oxygen Delivery Me thod Room Air 08/09/23 16:00 MDM - Fall Medical Decision Making Patient presents here after a fall she has a lumbar contusion x-rays here are normal she is hyperglycemic here she takes insulin at home she is stable for discharge follow-up with her PCP return if worsening Medical Records I reviewed the patient's medical records. Lab Data I reviewed the patient's lab results. 08/09/23 15:25 08/09/23 15:25 Radiology Impressions Lumbar Spine X-Ray 08/09/23 12:48 IMPRESSION: 1. No fracture or malalignment. 2. Moderate degenerative changes and dextroscoliosis. Thoracic Spine X-Ray 08/09/23 12:48 IMPRESSION: 1. Minimal degenerative changes. 2. No fracture or malalignment. Laboratory Results WBC 7.54 10^3/uL (3.29-11.43) 08/09/23 15: RBC 5.40 10^6/uL (3.85-5.65) 08/09/23 15:25 Hgb 13.80 g/dL (11.27-16.99) 08/09/23 15:25 Hct 42.1 % (36-47) 08/09/23 15:25 MCV 78.0 fl (85-98) L 08/09/23 15:25 MCH 25.6 pg (27-33) L 08/09/23 15:25 MCHC 32.8 g/dL (30-55) 08/09/23 15:25 RDW 14.1 % (12.1-15.1) 08/09/23 15:25 Plt Count 302 10^3/cmm (157-399) 08/09/23 15:25 MPV 8.8 fL (7.4-10.4) 08/09/23 15:25 Neut % (Auto) 60.4 % 08/09/23 15:25 Lymph % (Auto) 25.1 % 08/09/23 15:25 [place] % (Auto) 9.3 % 08/09/23 15:25 Eos % (Auto) 4.0 % 08/09/23 15:25 Baso % (Auto) 0.8 % 08/09/23 15:25 Neut # (Auto) 4.56 10^3/uL (1.8-7.7) 08/09/23 15:25 Lymph # (Auto) 1.9 10^3/uL (0.8-4.8) 08/09/23 15:25 [place] # (Auto) 0.7 10^3/uL (0.2-0.9) 08/09/23 15: Eos # (Auto) 0.3 10^3/uL (0.0-0.8) 08/09/23 15:25 Baso # (Auto) 0.1 10^3/uL (0.0-0.1) 08/09/23 15: Nucleated RBC % (auto) 0 % 08/09/23 15: Nucleated RBCs # 0.0 /100WBC 08/09/23 15:25 Sodium 132 mmol/L (136-145) L 08/09/23 15:25 Potassium 4.1 mmol/L (3.5-5.1) 08/09/23 15:25 Chloride 95 mmol/L (98-107) L 08/09/23 15:25 Carbon Dioxide 21 mmol/L (22-29) L 08/09/23 15:25 Anion Gap 20.1 (5-19) H 08/09/23 15:25 BUN 25 mg/dL (8-23) H 08/09/23 15:25 Creatinine 0.9 mg/dL (0.5-0.9) 08/09/23 15:25 GFR Calculation 62.8 mL/min (90-130) L 08/09/23 15:25 Glucose 402 mg/dL (65-115) H 08/09/23 15:25 Calculated Osmolality 295 mOsm/kg (285-295) 08/09/23 15:25 Calcium 10.1 mg/dL (8.5-10.5) 08/09/23 15:25 Total Bilirubin 0.5 mg/dL (0.15-1.2) 08/09/23 15:25 AST 12 U/L (0-32) 08/09/23 15:25 ALT 19 U/L (0-33) 08/09/23 15:25 Alkaline Phosphatase 65 U/L (35-105) 08/09/23 15:25 Total Protein 7.5 g/dL (6.6-8.7) 08/09/23 15:25 Albumin 4.0 g/dL (3.5-5.2) 08/09/23 15:25 Globulin 3.5 g/dL (1.3-4.6) 08/09/23 15:25 All radiology interpretation(s) finalized by discharge EKG Data EKG 1: I personally reviewed and interpreted this EKG as follows: EKG interpretation date: 08/09/23 EKG interpretation time: 15:08 Interpretation: nsr hr [address] or t wave abnormalities qrs 106 qtc 415 Discharge Plan Discharge Patient Disposition: Home Clinical Impression: Fall, Contusion of lower back Condition: Stable Prescriptions: No Action oxybutynin chloride 10 mg tablet extended release 24hr 10 mg PO DAILY lisinopril 10 mg tablet 10 mg PO DAILY escitalopram oxalate [Lexapro] 20 mg tablet 20 mg PO DAILY trazodone 150 mg tablet 150 mg PO BEDTIME venlafaxine [Effexor XR] 37.5 mg capsule,extended release 24hr 150 mg PO BID verapamil 120 mg capsule,ext rel. pellets 24 hr 240 mg PO DAILY pantoprazole [Protonix] 40 mg tablet,delayed release (DR/EC) 40 mg PO BID 14 Days Qty: 28 0RF (DME) Dexcom G7 Heel Stiffener Misc See Rx Instructions .ROUTE .COMPLEX Qty: 1 0RF Dose Instruction: USE DIRECTED Rx Instructions: USE DIRECTED Humulin R U-500 (Conc) Kwikpen 500 unit/mL (3 mL) insulin pen See Rx Instructions .ROUTE .COMPLEX Qty: 23 0RF Dose Instruction: INJECT 65 UNITS (0.13ML) SUBCUTANEOUSLY TWICE DAILY 30 MINUTES BEFORE BREAKFAST AND DINNER Rx Instructions: INJECT 65 UNITS (0.13ML) SUBCUTANEOUSLY TWICE DAILY 30 MINUTES BEFORE BREAKFAST AND DINNER (DME) Dexcom G7 Sensor Device See Rx Instructions .ROUTE .COMPLEX Qty: 6 0RF Dose Instruction: USE DIRECTED CHANGE EVERY 10 DAYS Rx Instructions: USE DIRECTED CHANGE EVERY 10 DAYS fluconazole 150 mg tablet 150 mg PO Q3D glipizide 10 mg tablet 20 mg PO BID atorvastatin 20 mg tablet 20 mg PO DAILY famotidine 20 mg tablet 20 mg PO DAILY clonazepam 2 mg tablet 2 mg PO TID PRN (Reason: Anxiety) ondansetron 4 mg tablet,disintegrating 4 mg PO Q6H PRN (Reason: nausea and vomiting) Qty: 14 0RF meloxicam 15 mg tablet 15 mg PO DAILY aripiprazole 10 mg tablet 10 mg PO DAILY aspirin 81 mg tablet,delayed release (DR/EC) 81 mg PO DAILY Qty: 30 0RF atorvastatin 40 mg tablet 40 mg PO DAILY Qty: 30 0RF clopidogrel 75 mg tablet 75 mg PO DAILY Qty: 30 0RF Discharge Orders: Discharge ED (Routine); Ordered 08/09/23 Ordered By: Eliana Paulino Referrals: Senait Kan [Primary Care Provider] - 1-3 days Discharge Diet: Advance as tolerated Discharge Activity: Resume usual activity Patient Instructions: Fall Prevention (ED) Coding Level of Care Code ED Single Stroke Preformer for Ericka Parker
[2023-08-09 15:30] VITALS: BP 116/70; PULSE 91; O2SAT 97
[2023-08-09 15:38] LABS: Basophils # 0.1 10^3/uL (0.0-0.1); Basophils % 0.8 %; Eosinophils # 0.3 10^3/uL (0.0-0.8); Hematocrit 42.1 % (36-47); Lymphocytes # 1.9 10^3/uL (0.8-4.8); Lymphocytes % 25.1 %; Mean Corpuscular HGB Conc 32.8 g/dL (30-55); Mean Corpuscular Hemoglobin 25.6 pg (27-33); Mean Platelet Volume 8.8 fL (7.4-10.4); Monocytes # 0.7 10^3/uL (0.2-0.9); Monocytes % 9.3 %; Neutrophils # 4.56 10^3/uL (1.8-7.7); Neutrophils % 60.4 %; Nucleated Red Blood Cells % 0 %; Platelet Count 302 10^3/cmm (157-399); Red Cell Distribution Width 14.1 % (12.1-15.1); White Blood Count 7.54 10^3/uL (3.29-11.43)
[2023-08-09 15:48] LABS: Alanine Aminotransferase 19 U/L (0-33); Alkaline Phosphatase 65 U/L (35-105); Anion Gap 20.1 (5-19); Aspartate Amino Transferase 12 U/L (0-32); Blood Urea Nitrogen 25 mg/dL (8-23); Calcium 10.1 mg/dL (8.5-10.5); Carbon Dioxide 21 mmol/L (22-29); Chloride 95 mmol/L (98-107); Creatinine Clr Calc Pharmacy 79.3412; Globulin 3.5 g/dL (1.3-4.6); Glomerular Filtration Rate 62.8 mL/min (90-130); Glucose 402 mg/dL (65-115); Osmolality Calculated 295 mOsm/kg (285-295); Potassium 4.1 mmol/L (3.5-5.1); Sodium 132 mmol/L (136-145); Total Bilirubin 0.5 mg/dL (0.15-1.2); Total Protein 7.5 g/dL (6.6-8.7)
[2023-08-09 16:00] VITALS: BP 119/79; PULSE 92; O2SAT 99
== END 2023-08-09 16:58 | disposition home or self-care (01) ==
PROVIDERS: Emergency Provider Emergency Medicine; PCP Internal Medicine
DX: S30.0XXA Contusion of lower back and pelvis, initial encounter (principal); Z79.02 Long term (current) use of antithrombotics/antiplatelets; Z79.82 Long term (current) use of aspirin; Z79.4 Long term (current) use of insulin; Z79.84 Long term (current) use of oral hypoglycemic drugs; I10 Essential (primary) hypertension; E78.5 Hyperlipidemia, unspecified; E11.9 Type 2 diabetes mellitus without complications; W19.XXXA Unspecified fall, initial encounter
CPT/HCPCS: 36415; 72072; 72100; 80053; 85025; 93005; 99285

== ENCOUNTER 2023-10-04 10:50 | Emergency (ER) | payer MEDICARE, MEDICAID, SELFPAY ==
[2023-10-04 10:51] VITALS: BP 161/84; PULSE 90; RESP 16; TEMP 36.7; O2SAT 96
--- NOTE | 2023-10-04 11:19 | XRR_ITS ---
PROCEDURE INFORMATION: Exam: XR Chest Exam date and time: 10/04/2023 11:41 AM Age: 68 years old Clinical indication: Other: HTN TECHNIQUE: Imaging protocol: Radiologic exam of the chest. Views: 1 view. COMPARISON: CR XR thoracic spine 3V* [id number] 08/09/2023 1:20 PM FINDINGS: Lungs: No consolidation. Pleural spaces: No sizable pleural effusion or pneumothorax. Heart/Mediastinum: No cardiomegaly. Bones/joints: Unremarkable. XR/XR chest 1V portable [id number] IMPRESSION: No acute intrathoracic findings.
--- NOTE | 2023-10-04 11:31 | ED_ITS ---
HPI - General Adult 2 General: Chief complaint: General Medical Stated complaint: feet swelling Time Seen by Provider: 10/04/23 11:19 Source: patient Mode of arrival: ambulatory Limitations: no limitations History of Present Illness: 68-year-old female states she had some s welling in her extremities for the last 2 weeks she states she had seen her PCP and PCP told her to start her Lasix but states she had never had a prescription called and she states the swelling is worsened slightly she denies any severe pain denies any fevers denies any shortness of breath. Associated symptoms: Deny chest pain, dyspnea, headache(s), nausea, rash or vomiting Review of Systems 2 Const: Denies: fever(s), chills, body aches or change in appetite ENMT: Denies: throat pain or dental pain Card: Denies: chest pain Resp: Denies: dyspnea GI: Denies: abdominal pain, nausea, vomiting or diarrhea Musc: Reports: extremity swelling; Denies: neck pain or back pain Skin/Breast: Denies: rash Neuro: Denies: headache(s) PFSH ED 2 PFSH: Medical History Hypertension Hyperlipidemia Diabetes Gastritis Encounter for screening colonoscopy Difficulty in swallowing Surgical History History of tubal ligation History of knee replacement History of colonoscopy Family History Other Cancer Diabetes Hypertension Denies family history of CAD (coronary artery disease) Stroke Social History Smoking and tobacco/nicotine status: never used tobacco/nicotine Alcohol intake: never Substance/Drug Use: never Lives independently: Yes Household members: spouse Physical Exam 2 Const: COMMON NORMALS: no acute distress, patient oriented x3 and healthy appearing HENMT: COMMON NORMALS: normocephalic and atraumatic HEAD & SCALP: n ormocephalic and atraumatic Eye: COMMON NORMALS: Equal, round and reactive pupils present and EOMs intact bilaterally PUPIL: Yes Equal, round and reactive pupils present Neck/C-Spine: COMMON NORMALS: full ROM and supple Chest: COMMONS NORMALS: normal inspection of the chest Resp: COMMON NORMALS: normal respiratory effort, No retractions, No use of accessory muscles and clear to auscultation bilaterally AUSCULTATION: clear to auscultation bilaterally Cardio: COMMON NORMALS: regular rate, regular rhythm and No murmurs present (Cardio) RATE: regular rate RHYTHM: regular rhythm Extremity: COMMON NORMALS: full ROM NARRATIVE EXTREMITY EXAM: 2+ edema to bilateral extremities Neuro: COMMON NORMALS: patient oriented x3, moves all extremities and no focal motor deficits Psych: COMMON NORMALS: mental status grossly normal, Normal thought process present and cooperative THOUGHT PROCESS: Normal thought process present Skin: COMMON NORMALS: no rashes or lesions noted and no wounds GENERAL SKIN EXAM: no rashes or lesions noted Course 2 Vital Signs: Vital signs: Vital Signs Temperature 98.1 F 10/04/23 10:51 Pulse Rate 104 H 10/04/23 13:06 Respiratory Rate 16 10/04/23 10:51 Blood Pressure 161/84 10/04/23 10:51 Pulse Oximetry 99 10/04/23 13:06 Oxygen Delivery Me thod Room Air 10/04/23 13:06 MDM - General Adult Medical Decision Making Patient presents with lower extremity edema no signs of CHF today very for 1 dose of Lasix here and former she needs to follow-up with her PCP she is found to be quite hyperglycemic patient refused an IV she did agree to subcu insulin but wanted to go home did not want to stay we will discharge she is to monitor her glucose closely at home as well return if worsening she understands agrees to plan Medical Records I reviewed the patient's medical records. Lab Data I reviewed the patient's lab results. 10/04/23 12:17 10/04/23 12:17 Radiology Impressions Chest X-Ray 10/04/23 11:19 IMPRESSION: No acute intrathoracic findings. Laboratory Results WBC 6.46 10^3/uL (3.29-11.43) 10/04/23 12:17 RBC 4.59 10^6/uL (3.85-5.65) 10/04/23 12:17 Hgb 11.80 g/dL (11.27-16.99) 10/04/23 12:17 Hct 36.1 % (36-47) 10/04/23 12:17 MCV 78.6 fl (85-98) L 10/04/23 12:17 MCH 25.7 pg (27-33) L 10/04/23 12:17 MCHC 32.7 g/dL (30-55) 10/04/23 12:17 RDW 13.4 % (12.1-15.1) 10/04/23 12:17 Plt Count 286 10^3/cmm (157-399) 10/04/23 12:17 MPV 8.6 fL (7.4-10.4) 10/04/23 12:17 Neut % (Auto) 58.6 % 10/04/23 12:17 Lymph % (Auto) 29.9 % 10/04/23 12:17 [place] % (Auto) 7.4 % 10/04/23 12:17 Eos % (Auto) 2.9 % 10/04/23 12:17 Baso % (Auto) 0.9 % 10/04/23 12:17 Neut # (Auto) 3.78 10^3/uL (1.8-7.7) 10/04/23 12:17 Lymph # (Auto) 1.9 10^3/uL (0.8-4.8) 10/04/23 12:17 [place] # (Auto) 0.5 10^3/uL (0.2-0.9) 10/04/23 12:17 Eos # (Auto) 0.2 10^3/uL (0.0-0.8) 10/04/23 12:17 Baso # (Auto) 0.1 10^3/uL (0.0-0.1) 10/04/23 12:17 Nucleated RBC % (auto) 0 % 10/04/23 12:17 Nucleated RBCs # 0.0 /100WBC 10/04/23 12:17 Sodium 129 mmol/L (136-145) L 10/04/23 12:17 Potassium 4.8 mmol/L (3.5-5.1) 10/04/23 12:17 Chloride 94 mmol/L (98-107) L 10/04/23 12:17 Carbon Dioxide 21 mmol/L (22-29) L 10/04/23 12:17 Anion Gap 18.8 (5-19) 10/04/23 12:17 BUN 31 mg/dL (8-23) H 10/04/23 12:17 Creatinine 0.8 mg/dL (0.5-0.9) 10/04/23 12:17 GFR Calculation 71.8 mL/min (90-130) L 10/04/23 12:17 Glucose 750 mg/dL (65-115) H* 10/04/23 12:17 Calculated Osmolality 311 mOsm/kg (285-295) H 10/04/23 12:17 Calcium 9.0 mg/dL (8.5-10.5) 10/04/23 12:17 Total Bilirubin 0.2 mg/dL (0.15-1.2) 10/04/23 12:17 AST 11 U/L (0-32) 10/04/23 12:17 ALT 20 U/L (0-33) 10/04/23 12:17 Alkaline Phosphatase 68 U/L (35-105) 10/04/23 12:17 NT-Pro-B Natriuret Pep 137 pg/mL (0-125) H 10/04/23 12:17 Total Protein 7.0 g/dL (6.6-8.7) 10/04/23 12:17 Albumin 3.9 g/dL (3.5-5.2) 10/04/23 12:17 Globulin 3.1 g/dL (1.3-4.6) 10/04/23 12:17 All radiology interpretation(s) finalized by discharge Discharge Plan Discharge Patient Disposition: Home Clinical Impression: Edema of both lower extremities, Hyperglycemia Condition: Stable Prescriptions: No Action oxybutynin chloride 10 mg tablet extended release 24hr 10 mg PO DAILY lisinopril 10 mg tablet 10 mg PO DAILY escitalopram oxalate [Lexapro] 20 mg tablet 20 mg PO DAILY trazodone 150 mg tablet 150 mg PO BEDTIME venlafaxine [Effexor XR] 37.5 mg capsule,extended release 24hr 150 mg PO BID verapamil 120 mg capsule,ext rel. pellets 24 hr 240 mg PO DAILY pantoprazole [Protonix] 40 mg tablet,delayed release (DR/EC) 40 mg PO BID 14 Days Qty: 28 0RF (DME) Dexcom G7 Contact Officer Misc See Rx Instructions .ROUTE .COMPLEX Qty: 1 0RF Dose Instruction: USE DIRECTED Rx Instructions: USE DIRECTED (DME) Dexcom G7 Sensor Device See Rx Instructions .ROUTE .COMPLEX Qty: 6 6RF Dose Instruction: USE DIRECTED CHANGE EVERY 10 DAYS Rx Instructions: USE DIRECTED CHANGE EVERY 10 DAYS Humulin R U-500 (Conc) Kwikpen 500 unit/mL (3 mL) insulin pen See Rx Instructions .ROUTE .COMPLEX Qty: 23 11RF Dose Instruction: INJECT 65 UNITS (0.13ML) SUBCUTANEOUSLY TWICE DAILY 30 MINUTES BEFORE BREAKFAST AND DINNER Rx Instructions: INJECT 65 UNITS (0.13ML) SUBCUTANEOUSLY TWICE DAILY 30 MINUTES BEFORE BREAKFAST AND DINNER fluconazole 150 mg tablet 150 mg PO Q3D glipizide 10 mg tablet 20 mg PO BID atorvastatin 20 mg tablet 20 mg PO DAILY famotidine 20 mg tablet 20 mg PO DAILY clonazepam 2 mg tablet 2 mg PO TID PRN (Reason: Anxiety) ondansetron 4 mg tablet,disintegrating 4 mg PO Q6H PRN (Reason: nausea and vomiting) Qty: 14 0RF meloxicam 15 mg tablet 15 mg PO DAILY aripiprazole 10 mg tablet 10 mg PO DAILY aspirin 81 mg tablet,delayed release (DR/EC) 81 mg PO DAILY Qty: 30 0RF atorvastatin 40 mg tablet 40 mg PO DAILY Qty: 30 0RF clopidogrel 75 mg tablet 75 mg PO DAILY Qty: 30 0RF Discharge Orders: Discharge ED (Routine); Ordered 10/04/23 Ordered By: Eliana Paulino Referrals: Senait Kan [Primary Care Provider] - Discharge Diet: Advance as tolerated Discharge Activity: Resume usual activity Patient Instructions: Leg Edema (ED), Diabetic Hyperglycemia (ED) Coding Level of Care Code ED Commercial Escrow Officer for Ericka Parker
[2023-10-04] MEDS: FUROsemide 10 mg/mL SDV 4mL 40 MG IVP (12:00)
[2023-10-04 12:27] LABS: Basophils # 0.1 10^3/uL (0.0-0.1); Basophils % 0.9 %; Eosinophils # 0.2 10^3/uL (0.0-0.8); Eosinophils % 2.9 %; Hematocrit 36.1 % (36-47); Lymphocytes # 1.9 10^3/uL (0.8-4.8); Lymphocytes % 29.9 %; Mean Corpuscular HGB Conc 32.7 g/dL (30-55); Mean Corpuscular Hemoglobin 25.7 pg (27-33); Mean Corpuscular Volume 78.6 fl (85-98); Mean Platelet Volume 8.6 fL (7.4-10.4); Monocytes # 0.5 10^3/uL (0.2-0.9); Monocytes % 7.4 %; Neutrophils # 3.78 10^3/uL (1.8-7.7); Neutrophils % 58.6 %; Nucleated Red Blood Cells % 0 %; Platelet Count 286 10^3/cmm (157-399); Red Blood Count 4.59 10^6/uL (3.85-5.65); Red Cell Distribution Width 13.4 % (12.1-15.1); White Blood Count 6.46 10^3/uL (3.29-11.43)
[2023-10-04 13:00] LABS: Alanine Aminotransferase 20 U/L (0-33); Albumin Level 3.9 g/dL (3.5-5.2); Alkaline Phosphatase 68 U/L (35-105); Anion Gap 18.8 (5-19); Aspartate Amino Transferase 11 U/L (0-32); Blood Urea Nitrogen 31 mg/dL (8-23); Carbon Dioxide 21 mmol/L (22-29); Chloride 94 mmol/L (98-107); Creatinine Clr Calc Pharmacy 86.0874; Globulin 3.1 g/dL (1.3-4.6); Glomerular Filtration Rate 71.8 mL/min (90-130); NT Pro B Type Natriuretic Pept 137 pg/mL (0-125); Osmolality Calculated 311 mOsm/kg (285-295); Potassium 4.8 mmol/L (3.5-5.1); Sodium 129 mmol/L (136-145); Total Bilirubin 0.2 mg/dL (0.15-1.2)
[2023-10-04 13:06] VITALS: PULSE 104; O2SAT 99
[2023-10-04 13:12] LABS: Glucose 750 mg/dL (65-115)
--- NOTE | 2023-10-04 13:37 | PC.NURSE ---
PT REFUSED IV INSULIN. PT STATES SHE WANTS TO GO HOME AND TAKE HOME INSULIN. DR. MARTELL NOTIFIED.
[2023-10-04] MEDS: insulin nph human 100 units/1 mL 15 UNIT SUBCUT (13:58)
== END 2023-10-04 14:09 | disposition home or self-care (01) ==
PROVIDERS: Emergency Provider Emergency Medicine; PCP Internal Medicine
DX: R60.0 Localized edema (principal); E11.65 Type 2 diabetes mellitus with hyperglycemia; I10 Essential (primary) hypertension; E78.5 Hyperlipidemia, unspecified; Z79.4 Long term (current) use of insulin; Z79.84 Long term (current) use of oral hypoglycemic drugs; Z79.82 Long term (current) use of aspirin; Z79.02 Long term (current) use of antithrombotics/antiplatelets
CPT/HCPCS: 36415; 71045; 80053; 83880; 85025; 96372; 96374; 99284; J1815; J1940

== ENCOUNTER → 2023-10-30 11:09 | Outpatient (BNVA) | payer MEDICARE, MEDICAID, SELFPAY | PROVIDERS: PCP Internal Medicine; Visit Provider Internal Medicine | DX: E11.9 Type 2 diabetes mellitus without complications (principal); E78.5 Hyperlipidemia, unspecified; K31.84 Gastroparesis; R26.89 Other abnormalities of gait and mobility; M62.81 Muscle weakness (generalized); Z79.4 Long term (current) use of insulin | CPT/HCPCS: 99214 ==

== ENCOUNTER 2023-12-16 12:35 | Emergency (ER) | payer MEDICARE, MEDICAID, SELFPAY ==
[2023-12-16 12:39] VITALS: BP 149/79; PULSE 103; RESP 20; TEMP 36.8; O2SAT 98
--- NOTE | 2023-12-16 13:47 | XRR_ITS ---
PROCEDURE INFORMATION: Exam: XR Right Hip Exam date and time: 12/16/2023 2:25 PM Age: 68 years old Clinical indication: Right hip; Patient HX: RT hip pain; No known injury TECHNIQUE: Imaging protocol: Radiologic exam of the right hip. Views: 1 view hip with pelvis when performed. COMPARISON: CR XR hip RT 2-3V wo/w pel* [id number] 12/20/2022 9:58 AM FINDINGS: Bones/joints: Normal femoroacetabular alignment joint space bilaterally. Normal smooth round appearance of the right femoral head with tapering at the head neck junction. No evidence of a CAM deformity. There is pincer morphology of the acetabulum which can predispose to pincer type impingement. No hip fracture is seen. No aggressive osseous lesion or significant degenerative change. Soft tissues: Unremarkable. Vasculature: Incidental pelvic calcifications likely representing phleboliths and vascular disease. XR/XR hip RT 2-3V wo/w pel* [id number] IMPRESSION: 1. No radiographically apparent hip fracture or malalignment. 2. Pincer type acetabular morphology. This can predispose to impingement clinically.
[2023-12-16 14:45] LABS: Basophils % 0.4 %; Hematocrit 41.2 % (36-47); Lymphocytes # 1.1 10^3/uL (0.8-4.8); Lymphocytes % 10.3 %; Mean Corpuscular HGB Conc 32.5 g/dL (30-55); Mean Corpuscular Hemoglobin 25.1 pg (27-33); Mean Corpuscular Volume 77.3 fl (85-98); Mean Platelet Volume 8.9 fL (7.4-10.4); Monocytes # 0.2 10^3/uL (0.2-0.9); Neutrophils # 9.27 10^3/uL (1.8-7.7); Neutrophils % 86.8 %; Nucleated Red Blood Cells % 0 %; Platelet Count 269 10^3/cmm (157-399); Red Blood Count 5.33 10^6/uL (3.85-5.65); White Blood Count 10.67 10^3/uL (3.29-11.43)
[2023-12-16 15:01] LABS: Alanine Aminotransferase 18 U/L (0-33); Albumin Level 3.9 g/dL (3.5-5.2); Alkaline Phosphatase 66 U/L (35-105); Anion Gap 16.9 (5-19); Aspartate Amino Transferase 15 U/L (0-32); Blood Urea Nitrogen 23 mg/dL (8-23); Calcium 9.4 mg/dL (8.5-10.5); Carbon Dioxide 18 mmol/L (22-29); Chloride 101 mmol/L (98-107); Creatinine Clr Calc Pharmacy 88.2666; Globulin 3.2 g/dL (1.3-4.6); Glomerular Filtration Rate 83.7 mL/min (90-130); Glucose 345 mg/dL (65-115); Osmolality Calculated 291 mOsm/kg (285-295); Potassium 3.9 mmol/L (3.5-5.1); Sodium 132 mmol/L (136-145); Total Bilirubin 0.2 mg/dL (0.15-1.2); Total Protein 7.1 g/dL (6.6-8.7)
--- NOTE | 2023-12-16 15:49 | ED_ITS ---
HPI - General Adult 2 General: Chief complaint: General Medical Stated complaint: hip hurting Time Seen by Provider: 12/16/23 15:48 History of Present Illness: 68-year-old female presents emergency ro om complaining of right hip pain. No recent trauma or falls. She denies any dysuria urgency or frequency. No previous surgery to the hip she has had a right knee arthroplasty remotely. No hematuria no abdominal pain. Refers to the most significant pain in the posterior lateral portion of her buttock. No radiation of pain into the leg. Associated symptoms: Deny chest pain, dyspnea or rash Related Data Home Medications Medication Instructions Recorded Confirmed escitalopram oxalate 20 mg tablet 20 mg PO DAILY 03/08/21 12/04/23 (Lexapro) lisinopril 10 mg tablet 10 mg PO DAILY 03/08/21 12/04/23 oxybutynin chloride 10 mg 10 mg PO DAILY 03/08/21 12/04/23 tablet,extended release 24 hr trazodone 150 mg tablet 150 mg PO BEDTIME 03/08/21 12/04/23 venlafaxine 37.5 mg 150 mg PO BID 03/08/21 12/04/23 capsule,extended release 24 hr (Effexor XR) verapamil 120 mg 24 hr 240 mg PO DAILY 03/08/21 12/04/23 capsule,extended release atorvastatin 20 mg tablet 20 mg PO DAILY 08/11/22 12/04/23 clonazepam 2 mg tablet 2 mg PO TID PRN Anxiety 08/11/22 12/04/23 famotidine 20 mg tablet 20 mg PO DAILY 08/11/22 12/04/23 fluconazole 150 mg tablet 150 mg PO Q3D 12/20/22 12/04/23 aripiprazole 10 mg tablet 10 mg PO DAILY 07/18/23 12/04/23 meloxicam 15 mg tablet 15 mg PO DAILY 07/18/23 12/04/23 Previous Rx's Medication Instructions Recorded pantoprazole 40 mg tablet,delayed 40 mg PO BID 14 days #28 tabs 03/08/22 release (Protonix) ondansetron 4 mg disintegrating 4 mg PO Q6H PRN nausea and 08/11/22 tablet vomiting #14 tabs blood-glucose meter,continuous #1 ea 09/29/22 (Dexcom G7 Stunt Woman) aspirin 81 mg tablet,delayed 81 mg PO DAILY #30 tabs 07/18/23 release atorvastatin 40 mg tablet 40 mg PO DAILY #30 tabs 07/18/23 clopidogrel 75 mg tablet 75 mg PO DAILY #30 tabs 07/18/23 blood-glucose sensor (Dexcom G7 #6 ea 08/24/23 Sensor device) insulin regular hum U-500 conc 500 See Rx Instructions .Route 09/27/23 unit/mL(3 mL) subcut pen (Humulin .COMPLEX #23 mL R U-500 (Conc) Insulin Kwikpen) diclofenac sodium 75 mg 75 mg PO Q12H PRN pain #20 tabs 12/16/23 tablet,delayed release hydrocodone 5 mg-acetaminophen 325 1 tab PO Q6H PRN pain #15 tabs 12/16/23 mg tablet prednisone 20 mg tablet 20 mg PO TID #15 tabs 12/16/23 Allergies Allergy/AdvReac Type Severity Reaction Status Date / Time No Known Allergies Allergy Verified 12/04/23 10:09 Review of Systems 2 Const: Denies: fever(s) or chills Card: Denies: chest pain Resp: Denies: dyspnea GI: Denies: abdominal pain : Denies: dysuria, urinary frequency or urinary urgency Musc: Denies: neck pain or back pain Skin/Breast: Denies: rash PFSH ED 2 PFSH: Medical History Hypertension Hyperlipidemia Diabetes Gastritis Encounter for screening colonoscopy Difficulty in swallowing Surgical History History of tubal ligation History of knee replacement History of colonoscopy Family History Other Cancer Diabetes Hypertension Denies family history of CAD (coronary artery disease) Stroke Social History Smoking and tobacco/nicotine status: never used tobacco/nicotine Alcohol intake: never Substance/Drug Use: never Lives independently: Yes Household members: spouse Physical Exam 2 Const: GENERAL APPEARANCE: cooperative ORIENTATION/CONSCIOUSNESS: Yes awake, Yes oriented to person, Yes oriented to place and Yes oriented to time HENMT: COMMON NORMALS: normocephalic, atraumatic and hearing grossly normal bilaterally HEAD & SCALP: normocephalic and atraumatic Resp: COMMON NORMALS: normal respiratory effort, No retractions, No use of accessory muscles and clear to auscultation bilaterally AUSCULTATION: clear to auscultation bilaterally Cardio: COMMON NORMALS: regular rate, regular rhythm and No murmurs present (Cardio) RATE: regular rate RHYTHM: regular rhythm GI: COMMON NORMALS: Soft to palpation and No hepatosplenomegaly present A USCULTATION: Yes normoactive bowel sounds PALPATION: Yes Soft to palpation, No Tenderness to palpation present (GI), No Guarding due to palpation present (GI) and Yes No hepatosplenomegaly present Extremity: COMMON NORMALS: normal to inspection, capillary refill normal, no clubbing, cyanosis or edema, no calf tenderness and no pedal edema Neuro: SENSORIUM/ORIENTATION: Yes oriented to person, Yes oriented to place and Yes oriented to time OTHER: Neurovascular tact straight leg raising negative Skin: COMMON NORMALS: no rashes or lesions noted GENERAL SKIN EXAM: no rashes or lesions noted Course 2 Vital Signs: Vital signs: Vital Signs Temperature 98.2 F 12/16/23 12:39 Pulse Rate 86 12/16/23 17:36 Respiratory Rate 16 12/16/23 17:36 Blood Pressure 124/89 12/16/23 17:36 Pulse Oximetry 97 12/16/23 17:36 Oxygen Delivery Me thod Room Air 12/16/23 17:36 [facility] - General Adult Medical Decision Making Labs and imaging reviewed no leukocytosis patient has no signs of cystitis. Hip x-ray did not show any acute fractures. There is a posterior lumbar hernia does not appear to be entrapping anything otherwise no acute findings on the CT. Believe this more musculoskeletal may be some mild sciatica. Will discharge patient home with diclofenac Norflex prednisone taper hydrocodone to use as needed follow-up with primary care Medical Records I reviewed the patient's medical records. Lab Data I reviewed the patient's lab results. 12/16/23 14:39 12/16/23 14:39 Radiology Impressions Hip/Pelvis X-Ray 12/16/23 13:47 IMPRESSION: 1. No radiographically apparent hip fracture or malalignment. 2. Pincer type acetabular morphology. This can predispose to impingement clinically. Abdomen/Pelvis CT 12/16/23 16:53 IMPRESSION: 1. No evidence of a urinary tract stone. 2. Lumbar type fatty hernia on the right extending outward between the posterior right 10th and 11th ribs. The right kidney partially extends towards the hernia. 3. Other incidental and chronic findings as above. Laboratory Results WBC 10.67 10^3/uL (3.29-11.43) 12/16/23 14:39 RBC 5.33 10^6/uL (3.85-5.65) 12/16/23 14:39 Hgb 13.40 g/dL (11.27-16.99) 12/16/23 14:39 Hct 41.2 % (36-47) 12/16/23 14:39 MCV 77.3 fl (85-98) L 12/16/23 14:39 MCH 25.1 pg (27-33) L 12/16/23 14:39 MCHC 32.5 g/dL (30-55) 12/16/23 14:39 RDW 14.0 % (12.1-15.1) 12/16/23 14:39 Plt Count 269 10^3/cmm (157-399) 12/16/23 14:39 MPV 8.9 fL (7.4-10.4) 12/16/23 14:39 Neut % (Auto) 86.8 % 12/16/23 14:39 Lymph % (Auto) 10.3 % 12/16/23 14:39 [place] % (Auto) 2.0 % 12/16/23 14:39 Eos % (Auto) 0.0 % 12/16/23 14:39 Baso % (Auto) 0.4 % 12/16/23 14:39 Neut # (Auto) 9.27 10^3/uL (1.8-7.7) H 12/16/23 14:39 Lymph # (Auto) 1.1 10^3/uL (0.8-4.8) 12/16/23 14:39 [place] # (Auto) 0.2 10^3/uL (0.2-0.9) 12/16/23 14:39 Eos # (Auto) 0.0 10^3/uL (0.0-0.8) 12/16/23 14:39 Baso # (Auto) 0.0 10^3/uL (0.0-0.1) 12/16/23 14:39 Nucleated RBC % (auto) 0 % 12/16/23 14:39 Nucleated RBCs # 0.0 /100WBC 12/16/23 14:39 Sodium 132 mmol/L (136-145) L 12/16/23 14:39 Potassium 3.9 mmol/L (3.5-5.1) 12/16/23 14:39 Chloride 101 mmol/L (98-107) 12/16/23 14:39 Carbon Dioxide 18 mmol/L (22-29) L 12/16/23 14:39 Anion Gap 16.9 (5-19) 12/16/23 14:39 BUN 23 mg/dL (8-23) 12/16/23 14:39 Creatinine 0.7 mg/dL (0.5-0.9) 12/16/23 14:39 GFR Calculation 83.7 mL/min (90-130) L 12/16/23 14:39 Glucose 345 mg/dL (65-115) H 12/16/23 14:39 Calculated Osmolality 291 mOsm/kg (285-295) 12/16/23 14:39 Calcium 9.4 mg/dL (8.5-10.5) 12/16/23 14:39 Total Bilirubin 0.2 mg/dL (0.15-1.2) 12/16/23 14:39 AST 15 U/L (0-32) 12/16/23 14:39 ALT 18 U/L (0-33) 12/16/23 14:39 Alkaline Phosphatase 66 U/L (35-105) 12/16/23 14:39 Total Protein 7.1 g/dL (6.6-8.7) 12/16/23 14:39 Albumin 3.9 g/dL (3.5-5.2) 12/16/23 14:39 Globulin 3.2 g/dL (1.3-4.6) 12/16/23 14:39 Urine Color Yellow (Yellow) 12/16/23 16:36 Urine Appearance Clear (CLEAR) 12/16/23 16:36 Urine pH 5.5 (5-7) 12/16/23 16:36 Ur Specific [place] 1.039 (1.005-1.030) H 12/16/23 16:36 Urine Protein 2+ (Negative) A 12/16/23 16:36 Urine Glucose (UA) 3+ (Normal) H 12/16/23 16:36 Urine Ketones Trace (Negative) 12/16/23 16:36 Urine Blood 2+ (Negative) A 12/16/23 16:36 Urine Nitrate Negative (Negative) 12/16/23 16:36 Urine Bilirubin Negative (Negative) 12/16/23 16:36 Urine Urobilinogen 1.0 mg/dL (Negative) 12/16/23 16:36 Ur Leukocyte Esterase Negative (Negative) 12/16/23 16:36 Urine RBC 6-10 /hpf (0-2) 12/16/23 16:36 Urine WBC 0-5 /hpf (0-5) 12/16/23 16:36 Ur Squamous Epith Cells 0-5 /hpf (0-5) 12/16/23 16:36 Amorphous Sediment Not Reportable 12/16/23 16:36 Urine Bacteria None seen /hpf (NONE) 12/16/23 16:36 Hyaline Casts 0.81 /lpf 12/16/23 16:36 All radiology interpretation(s) finalized by discharge Discharge Plan Discharge Patient Disposition: Home Clinical Impression: Sciatica of right side Condition: Stable Prescriptions: New hydrocodone-acetaminophen 5-325 mg tablet 1 tab PO Q6H PRN (Reason: pain) Qty: 15 0RF prednisone 20 mg tablet 20 mg PO TID Qty: 15 0RF Rx Instructions: 1 p.o. 3 times daily x3 days, 1 p.o. twice daily x2 days, 1 p.o. daily x2 days diclofenac sodium 75 mg tablet,delayed release (DR/EC) 75 mg PO Q12H PRN (Reason: pain) Qty: 20 0RF No Action oxybutynin chloride 10 mg tablet extended release 24hr 10 mg PO DAILY lisinopril 10 mg tablet 10 mg PO DAILY escitalopram oxalate [Lexapro] 20 mg tablet 20 mg PO DAILY trazodone 150 mg tablet 150 mg PO BEDTIME venlafaxine [Effexor XR] 37.5 mg capsule,extended release 24hr 150 mg PO BID verapamil 120 mg capsule,ext rel. pellets 24 hr 240 mg PO DAILY pantoprazole [Protonix] 40 mg tablet,delayed release (DR/EC) 40 mg PO BID 14 Days Qty: 28 0RF (DME) Dexcom G7 Stunt Woman Misc See Rx Instructions .ROUTE .COMPLEX Qty: 1 0RF Dose Instruction: USE DIRECTED Rx Instructions: USE DIRECTED (DME) Dexcom G7 Sensor Device See Rx Instructions .ROUTE .COMPLEX Qty: 6 6RF Dose Instruction: USE DIRECTED CHANGE EVERY 10 DAYS Rx Instructions: USE DIRECTED CHANGE EVERY 10 DAYS Humulin R U-500 (Conc) Kwikpen 500 unit/mL (3 mL) insulin pen See Rx Instructions .ROUTE .COMPLEX Qty: 23 11RF Dose Instruction: INJECT 65 UNITS (0.13ML) SUBCUTANEOUSLY TWICE DAILY 30 MINUTES BEFORE BREAKFAST AND DINNER Rx Instructions: INJECT 65 UNITS (0.13ML) SUBCUTANEOUSLY TWICE DAILY 30 MINUTES BEFORE BREAKFAST AND DINNER fluconazole 150 mg tablet 150 mg PO Q3D atorvastatin 20 mg tablet 20 mg PO DAILY famotidine 20 mg tablet 20 mg PO DAILY clonazepam 2 mg tablet 2 mg PO TID PRN (Reason: Anxiety) ondansetron 4 mg tablet,disintegrating 4 mg PO Q6H PRN (Reason: nausea and vomiting) Qty: 14 0RF meloxicam 15 mg tablet 15 mg PO DAILY aripiprazole 10 mg tablet 10 mg PO DAILY aspirin 81 mg tablet,delayed release (DR/EC) 81 mg PO DAILY Qty: 30 0RF atorvastatin 40 mg tablet 40 mg PO DAILY Qty: 30 0RF clopidogrel 75 mg tablet 75 mg PO DAILY Qty: 30 0RF Discharge Orders: Discharge ED (Routine); Ordered 12/16/23 Ordered By: Keyshawn Valdovinos Referrals: Senait Kan [Primary Care Provider] - Discharge Diet: Usual diet Discharge Activity: Increase activity as tolerated Patient Instructions: Opioid Safety, Pain Management Activity Restrictions/Additional Instructions: Thank you for choosing [facility] for your healthcare needs today. It is very important that you follow up as instructed or that you return to the Emergency Department should you have concerns or if your condition changes or worsens in any way. 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
[2023-12-16] MEDS: orphenadrine 30 mg/mL Inj 2 mL 60 MG IM (16:23)
[2023-12-16] MEDS: ketorolac 30 mg/mL INJ IM (16:23)
[2023-12-16] MEDS: dexamethasone 10 mg/mL INJ IM (16:23)
[2023-12-16 16:45] LABS: Bilirubin Urine Negative (Negative); Blood Urine 2+ (Negative); Glucose Urine UA 3+ (Normal); Ketones Urine Trace (Negative); Leukocyte Esterase Urine Negative (Negative); Nitrate Urine Negative (Negative); Protein Urine 2+ (Negative); Urine Appearance Clear (CLEAR); Urine Color Yellow (Yellow); pH Urine 5.5 (5-7)
[2023-12-16 16:48] LABS: Add Urine Microscopic? YES; Bacteria Urine None Seen /hpf; Hyaline Casts Urine 0.81 /lpf; Squamous Epithelial Cell Urine 0-5 /hpf (0-5); WBC Urine 0-5 /hpf (0-5)
[2023-12-16 16:49] LABS: Specific Gravity, Urine 1.039 (1.005-1.030)
--- NOTE | 2023-12-16 16:53 | CTR_ITS ---
PROCEDURE INFORMATION: Exam: CT Abdomen And Pelvis Without Contrast Exam date and time: 12/16/2023 5:01 PM Age: 68 years old Clinical indication: Abdominal pain; Flank; Right; Additional info: Flank pain TECHNIQUE: Imaging protocol: Computed tomography of the abdomen and pelvis without contrast. Radiation optimization: All CT scans at this facility use at least one of these dose optimization techniques: automated exposure control; mA and/or kV adjustment per patient size (includes targeted exams where dose is matched to clinical indication); or iterative reconstruction. COMPARISON: CR XR hip RT 2-3V wo/w pel* [id number] 12/16/2023 2:25 PM RADIATION DOSE METRICS: Total DLP (mGy-cm): 1094 FINDINGS: Lungs: Visualized lung bases are clear. Liver: Normal appearance of the liver. Gallbladder and biliary ducts: Normal appearance of the gallbladder. No radiopaque cholelithiasis. Pancreas: Normal appearance of the pancreas. No ductal dilation. Spleen: Normal appearance of the spleen. Adrenal glands: Normal appearance of both adrenal glands. Kidneys and ureters: No evidence of hydronephrosis or nephrolithiasis bilaterally.Normal appearance of both ureters without hydroureter or ureteral stone. Stomach and bowel: Hiatal hernia of the stomach.Normal appearance of the small bowel without luminal dilation suggested. Mild proximal colonic stool. Appendix: The appendix is identified and normal in appearance. No evidence of appendicitis. Intraperitoneal space: Unremarkable. No free air. No significant fluid collection. Vasculature: Mild atherosclerosis throughout the abdominal aorta without aneurysm. There is focal prominent atherosclerosis at the origin of both renal arteries. Pelvic calcifications, likely representing incidental phleboliths. Lymph nodes: Unremarkable. No enlarged lymph nodes. Urinary bladder: Normal appearance of the urinary bladder. No intravesicular stone. Reproductive: Incidental uterine calcifications likely representing small calcified fibroids. Unremarkable ovaries. Bones/joints: Mild scattered degenerative changes of the visualized spine. No aggressive osseous lesion or fracture is seen. Soft tissues: There is a fatty lumbar type hernia along the posterior right abdominal wall. The right kidney partially extends towards the hernia. CT/CT kidney stone [id number] IMPRESSION: 1. No evidence of a urinary tract stone. 2. Lumbar type fatty hernia on the right extending outward between the posterior right 10th and 11th ribs. The right kidney partially extends towards the hernia. 3. Other incidental and chronic findings as above.
[2023-12-16 17:04] VITALS: BP 154/77; PULSE 86; RESP 16; O2SAT 97
[2023-12-16 17:36] VITALS: BP 124/89; PULSE 86; RESP 16; O2SAT 97
[2023-12-16 18:02] VITALS: BP 124/89; PULSE 88; RESP 16; O2SAT 96
== END 2023-12-16 17:51 | disposition home or self-care (01) ==
PROVIDERS: Emergency Medicine; Emergency Provider Family Medicine; PCP Internal Medicine
DX: M54.31 Sciatica, right side (principal); Z79.02 Long term (current) use of antithrombotics/antiplatelets; Z79.82 Long term (current) use of aspirin; Z79.4 Long term (current) use of insulin; I10 Essential (primary) hypertension; E78.5 Hyperlipidemia, unspecified; E11.9 Type 2 diabetes mellitus without complications
CPT/HCPCS: 36415; 73502; 74176; 80053; 81001; 85025; 96372; 99284; J1100; J1885; J2360

== ENCOUNTER → 2024-07-26 11:30 | Outpatient (BNVA) | payer MEDICARE, MEDICAID, SELFPAY | PROVIDERS: PCP Nurse Practitioner Family; Visit Provider Nurse Practitioner Family | DX: E78.2 Mixed hyperlipidemia (principal); E11.9 Type 2 diabetes mellitus without complications | CPT/HCPCS: 80053; 80061; 82043; 83036 ==

== ENCOUNTER 2024-08-17 16:52 | Emergency (ER) | payer OTHER, MEDICAID, SELFPAY ==
[2024-08-17 16:53] VITALS: BP 118/64; PULSE 93; RESP 22; TEMP 36.3; O2SAT 92; BMI 36.8
[2024-08-17 17:07] LABS: Glucose Point of Care 56 mg/dL (70-110)
--- NOTE | 2024-08-17 17:08 | PC.NURSE ---
PT BLOOD GLUCOSE 56. DR. HERNANDEZ NOTIFIED. VERBAL ORDERS TO GIVE 8OZ ORANGE JUICE DUE TO PT BEING ALERT AND ORIENTED AND ABLE TO FOLLOW COMMANDS.
--- NOTE | 2024-08-17 17:13 | ED_ITS ---
HPI - Recheck/Abnormal Lab/Rx 2 General: Chief Complaint: Recheck/Abnormal Lab/Rx Stated Complaint: hypoglycemia Time Seen by Provider: 08/17/24 16:53 History of Present Illness: 68-year-old female brought in due to conrad e hypoglycemia. Patient reports that she did not eat quick enough after taking her insulin. EMS reports her blood sugars in the 30s they did give her an amp of D50. Patient reports that she has had a similar episode in the past. Patient reports that she has not eaten since taking her insulin. Related Data Home Medications ?Medication ?Instructions ?Recorded ?Confirmed lisinopril 10 mg tablet 10 mg PO DAILY 03/08/2107/12 oxybutynin chloride 10 mg 10 mg PO DAILY 03/08/2107/12 tablet,extended release 24 hr venlafaxine 37.5 mg 150 mg PO BID 03/08/2107/30 capsule,extended release 24 hr (Effexor XR) atorvastatin 20 mg tablet 20 mg PO DAILY 08/11/2207/12 meloxicam 15 mg tablet 15 mg PO DAILY 07/18/2307/12 cyclobenzaprine 5 mg tablet 5 mg PO TID PRN 07/26/24 0 07/30/24 cyclosporine 0.05 % eye drops in a 1 drp ophthalmic (demetra marin) Q12H 07/26/24 07/30/24 dropperette (Restasis) Previous Rx's ?Medication ?Instructions ?Recorded pantoprazole 40 mg tablet,delayed 40 mg PO BID 14 days #28 tabs 03/08/22 release (Protonix) aspirin 81 mg tablet,delayed 81 mg PO DAILY #30 tabs 0 07/18/23 release metformin 500 mg tablet See Rx Instructions .Route 0 07/10/24 .COMPLEX #60 tabs trazodone 150 mg tablet See Rx Instructions .Route 0 07/10/24 .COMPLEX #60 tabs verapamil 240 mg tablet,extended See Rx Instructions . Route 07/10/24 release .COMPLEX #30 tabs blood sugar diagnostic (True #100 ea 07/26/24 Metrix Glucose Test Strip) furosemide 40 mg tablet 40 mg PO QAM 5 days #5 tabs 07/26/24 insulin aspart U-100 100 unit/mL See Rx Instructions S UBCUT TID #15 07/26/24 (3 mL) subcutaneous pen (Novolog mL FlexPen U-100 Insulin aspart) insulin glargine 100 unit/mL (3 90 unit (0.9 mL) SUBCU T QAM #27 mL 07/26/24 mL) subcutaneous pen (Lantus Solostar U-100 Insulin) pen needle, diabetic 31 gauge x #100 ea 07/26/2407/26 (1st Tier Unifine Pentips) Allergies Allergy/AdvReac Type Severity Reaction Status Date / Time No Known Allergies Allergy Verified 07/26/24 11:08 Review of Systems 2 Const: Denies: fever(s) or chills Resp: Denies: dyspnea GI: Denies: abdominal pain, nausea or vomiting Skin/Breast: Denies: rash PFSH ED 2 PFSH: Medical History (Updated 08/17/24 @ 19:58 by Cecil Chapa DO) Hypertension Hyperlipidemia Diabetes Gastritis Encounter for screening colonoscopy Difficulty in swallowing Surgical History History of tubal ligation History of knee replacement History of colonoscopy Family History Other Cancer Diabetes Hypertension Denies family history of CAD (coronary artery disease) Stroke Social History Smoking and tobacco/nicotine status: never used tobacco/nicotine Alcohol intake: never Substance/Drug Use: never Lives independently: Yes Household members: spouse Physical Exam 2 Const: COMMON NORMALS: no acute distress, patient oriented x3 and alert Resp: COMMON NORMALS: normal respiratory effort and No retractions Cardio: COMMON NORMALS: regular rate and regular rhythm RATE: regular rate RHYTHM: regular rhythm Neuro: COMMON NORMALS: patient oriented x3, no focal motor deficits and no sensory deficits noted SENSORIUM/ORIENTATION: Yes alert Psych: COMMON NORMALS: Normal thought process present, cooperative and normal affect THOUGHT PROCESS: Normal thought process present Skin: COMMON NORMALS: no rashes or lesions noted GENERAL SKIN EXAM: no rashes or lesions noted Course 2 Vital Signs: Vital signs: Vital Signs Temperature 97.4 F L 08/17/24 16:53 Pulse Rate 90 08/17/24 18:45 Respiratory Rate 16 08/17/24 17:18 Blood Pressure 112/68 08/17/24 18:45 Pulse Oximetry 94 08/17/24 18:45 Oxygen Delivery Me thod Room Air 08/17/24 17:18 MDM - Recheck/Abnormal Lab/Rx Medical Decision Making Patient's labs were ordered and reviewed. Patient had no significant acute findings on her labs. Patient's blood sugar corrected with p.o. intake and a regular diet and remained in the proper range. Patient is feeling good and is ready to be discharged home. Patient is stable upon discharge. Lab Data 08/17/24 18:26 08/17/24 18:26 Laboratory Results WBC 8.30 10^3/uL (3.29-11.43) 08/17/24 18:26 RBC 5.00 10^6/uL (3.85-5.65) 08/17/24 18:26 Hgb 10.80 g/dL (11.27-16.99) L 08/17/24 18:26 Hct 36.5 % (36-47) 08/17/24 18:26 MCV 73.0 fl (85-98) L 08/17/24 18:26 MCH 21.6 pg (27-33) L 08/17/24 18:26 MCHC 29.6 g/dL (30-55) L 08/17/24 18:26 RDW 17.0 % (12.1-15.1) H 08/17/24 18:26 Plt Count 276 10^3/cmm (157-399) 08/17/24 18:26 MPV 9.9 fL (7.4-10.4) 08/17/24 18:26 Neut % (Auto) 80.5 % 08/17/24 18:26 Lymph % (Auto) 12.2 % 08/17/24 18:26 [place] % (Auto) 6.5 % 08/17/24 18:26 Eos % (Auto) 0.2 % 08/17/24 18:26 Baso % (Auto) 0.2 % 08/17/24 18:26 Neut # (Auto) 6.68 10^3/uL (1.8-7.7) 08/17/24 18:26 Lymph # (Auto) 1.0 10^3/uL (0.8-4.8) 08/17/24 18:26 [place] # (Auto) 0.5 10^3/uL (0.2-0.9) 08/17/24 18:26 Eos # (Auto) 0.0 10^3/uL (0.0-0.8) 08/17/24 18:26 Baso # (Auto) 0.0 10^3/uL (0.0-0.1) 08/17/24 18:26 Nucleated RBC % (auto) 0 % 08/17/24 18:26 Nucleated RBCs # 0.0 /100WBC 08/17/24 18:26 Sodium 134 mmol/L (136-145) L 08/17/24 18:26 Potassium 4.1 mmol/L (3.5-5.1) 08/17/24 18:26 Chloride 97 mmol/L (98-107) L 08/17/24 18:26 Carbon Dioxide 23 mmol/L (22-29) 08/17/24 18:26 Anion Gap 18.1 (5-19) 08/17/24 18:26 BUN 28 mg/dL (8-23) H 08/17/24 18:26 Creatinine 0.8 mg/dL (0.5-0.9) 08/17/24 18:26 GFR Calculation 71.8 mL/min (90-130) L 08/17/24 18:26 Glucose 77 mg/dL (65-115) 08/17/24 18:26 POC Glucose 114 mg/dL (70-110) H 08/17/24 18:59 Calculated Osmolality 282 mOsm/kg (285-295) L 08/17/24 18:26 Calcium 8.3 mg/dL (8.5-10.5) L 08/17/24 18:26 No radiology studies performed this visit Discharge Plan Discharge Patient Disposition: Home Clinical Impression: Hypoglycemia Condition: Stable Prescriptions: No Action oxybutynin chloride 10 mg tablet extended release 24hr 10 mg PO DAILY lisinopril 10 mg tablet 10 mg PO DAILY venlafaxine [Effexor XR] 37.5 mg capsule,extended release 24hr 150 mg PO BID pantoprazole [Protonix] 40 mg tablet,delayed release (DR/EC) 40 mg PO BID 14 Days Qty: 28 0RF cyclobenzaprine 5 mg tablet 5 mg PO TID PRN cyclosporine [Restasis] 0.05 % dropperette 1 drp ophthalmic (eye) Q12H (DME) True Metrix Glucose Test Strip Strip See Rx Instructions .Route Qty: 100 3RF Rx Instructions: three times a day insulin glargine [Lantus Solostar U-100 Insulin] 100 unit/mL (3 mL) insulin pen 90 unit SUBCUT QAM Qty: 27 11RF Rx Instructions: 90 UNITS EVERY MORNING insulin aspart U-100 [Novolog FlexPen U-100 Insulin] 100 unit/mL (3 mL) insulin pen See Rx Instructions SUBCUT TID Qty: 15 0RF Rx Instructions: 0-150= o units 151-200= 2 units 201-250= 4 untis 251-300= 6 units 301-350= 8 units 351-400=10 units 401 or greater call doctor max daily dose 30 units. (DME) pen needle, diabetic [1st Tier Unifine Pentips] 31 gauge x 5/16 needle See Rx Instructions .Route Qty: 100 11RF Rx Instructions: inject up to four times a day. furosemide 40 mg tablet 40 mg PO QAM 5 Days Qty: 5 0RF Rx Instructions: the prn trazodone 150 mg tablet See Rx Instructions .ROUTE .COMPLEX Qty: 60 3RF Dose Instruction: TAKE TWO TABLETS BY MOUTH ONCE DAILY IN THE EVENING NEEDED Rx Instructions: TAKE TWO TABLETS BY MOUTH ONCE DAILY IN THE EVENING NEEDED verapamil 240 mg tablet extended release See Rx Instructions .ROUTE .COMPLEX Qty: 30 3RF Dose Instruction: TAKE ONE TABLET BY MOUTH ONCE DAILY Rx Instructions: TAKE ONE TABLET BY MOUTH ONCE DAILY metformin 500 mg tablet See Rx Instructions .ROUTE .COMPLEX Qty: 60 3RF Dose Instruction: TAKE ONE TABLET BY MOUTH TWICE DAILY Rx Instructions: TAKE ONE TABLET BY MOUTH TWICE DAILY atorvastatin 20 mg tablet 20 mg PO DAILY meloxicam 15 mg tablet 15 mg PO DAILY aspirin 81 mg tablet,delayed release (DR/EC) 81 mg PO DAILY Qty: 30 0RF Discharge Orders: Discharge ED (Routine); Ordered 08/17/24 Ordered By: Ceicl Chapa Referrals: Kamille Retana NP [Primary Care Provider, Family Practice] Discharge Diet: Usual diet Discharge Activity: Increase activity as tolerated Patient Instructions: Hypoglycemia, What to Do if Your Blood Sugar is Low (ED), Opioid Safety, Pain Management Activity Restrictions/Additional Instructions: Please be sure you are eating properly with your insulin. Follow-up with your primary care provider as needed. Print Language: Uzbek Coding Level of Care Code ED Route Sales Delivery Driver for Ericka Parker
[2024-08-17 17:18] VITALS: BP 99/79; PULSE 89; RESP 16; O2SAT 91
[2024-08-17 17:32] LABS: Glucose Point of Care 56 mg/dL (70-110)
[2024-08-17 17:40] LABS: Glucose Point of Care 60 mg/dL (70-110)
--- NOTE | 2024-08-17 17:45 | XRR_ITS ---
PROCEDURE INFORMATION: Exam: XR Chest Exam date and time: 08/17/2024 5:46 PM Age: 68 years old Clinical indication: Hypoglycemic; Cough TECHNIQUE: Imaging protocol: Radiologic exam of the chest. Views: 1 view. COMPARISON: CR XR chest 1V portable [id number] 10/04/2023 11:41 AM FINDINGS: Lungs: There appears to be a retrocardiac opacity. This could reflect layering pleural fluid, atelectasis, pneumonia or a combination. Lungs are otherwise clear. Pleural spaces: Possible pleural fluid on the left. No pneumothorax is appreciated. Heart/Mediastinum: The heart is enlarged. Bones/joints: Unremarkable. XR/XR chest 1V portable [id number] IMPRESSION: 1. Cardiomegaly. 2. Suspect retrocardiac opacity.
[2024-08-17 18:08] LABS: Glucose Point of Care 74 mg/dL (70-110)
[2024-08-17 18:34] LABS: Basophils % 0.2 %; Eosinophils % 0.2 %; Hematocrit 36.5 % (36-47); Lymphocytes % 12.2 %; Mean Corpuscular HGB Conc 29.6 g/dL (30-55); Mean Corpuscular Hemoglobin 21.6 pg (27-33); Mean Platelet Volume 9.9 fL (7.4-10.4); Monocytes # 0.5 10^3/uL (0.2-0.9); Monocytes % 6.5 %; Neutrophils # 6.68 10^3/uL (1.8-7.7); Neutrophils % 80.5 %; Nucleated Red Blood Cells % 0 %; Platelet Count 276 10^3/cmm (157-399)
[2024-08-17 18:45] VITALS: BP 112/68; PULSE 90; O2SAT 94
[2024-08-17 18:58] LABS: Blood Urea Nitrogen 28 mg/dL (8-23); Calcium 8.3 mg/dL (8.5-10.5); Carbon Dioxide 23 mmol/L (22-29); Chloride 97 mmol/L (98-107); Creatinine Clr Calc Pharmacy 86.9217; Glomerular Filtration Rate 71.8 mL/min (90-130); Glucose 77 mg/dL (65-115); Osmolality Calculated 282 mOsm/kg (285-295); Sodium 134 mmol/L (136-145)
[2024-08-17 19:04] LABS: Anion Gap 18.1 (5-19); Potassium 4.1 mmol/L (3.5-5.1)
[2024-08-17 19:17] LABS: Glucose Point of Care 114 mg/dL (70-110)
== END 2024-08-17 21:27 | disposition home or self-care (01) ==
PROVIDERS: Emergency Provider Student in an Organized Health Care Education/Training Program; PCP Nurse Practitioner Family
DX: E11.649 Type 2 diabetes mellitus with hypoglycemia without coma (principal); I10 Essential (primary) hypertension; E78.5 Hyperlipidemia, unspecified; Z79.4 Long term (current) use of insulin; Z79.84 Long term (current) use of oral hypoglycemic drugs; Z79.82 Long term (current) use of aspirin
CPT/HCPCS: 36415; 36416; 71045; 80048; 82962; 85025; 99284

== ENCOUNTER 2024-08-19 05:16 | Emergency (ER) | payer OTHER, MEDICAID, SELFPAY ==
[2024-08-19 05:17] VITALS: BP 139/75; PULSE 93; RESP 22; TEMP 36.3; O2SAT 92; BMI 412.6
--- NOTE | 2024-08-19 05:27 | ECG_ITS ---
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 Measurements Intervals [place] Rate: 87 P: 65 MS: 197 QRS: 73 QRSD: 99 T: 75 QT: 385 QTc: 464 Interpretive Statements SINUS RHYTHM POSSIBLE LEFT ATRIAL ENLARGEMENT [-0.1mV P-WAVE IN V1/V2] NONSPECIFIC ST & T-WAVE ABNORMALITY Compared to ECG 08/09/2023 15:08:01 No significant changes Electronically Signed On 08-19-2024 08:52:11 CDT by Rayshawn Rosas M.D. [email or web address]
[2024-08-19 05:39] LABS: Glucose Point of Care 178 mg/dL (70-110)
--- NOTE | 2024-08-19 05:43 | CTR_ITS ---
PROCEDURE INFORMATION: Exam: CT Head Without Contrast Exam date and time: 08/19/2024 6:10 AM Age: 69 years old Clinical indication: Injury or trauma; Blunt trauma (contusions or hematomas); EMS arrival for fall. Patient became dizzy when getting up to use the bathroom and fell with posterior headstrike. TECHNIQUE: Imaging protocol: Computed tomography of the head without contrast. Radiation optimization: All CT scans at this facility use at least one of these dose optimization techniques: automated exposure control; mA and/or kV adjustment per patient size (includes targeted exams where dose is matched to clinical indication); or iterative reconstruction. COMPARISON: CT head thrombolytic [id number] 07/18/2023 1:29 PM RADIATION DOSE METRICS: Total DLP (mGy-cm): 998.35 FINDINGS: Brain: There is marked cerebral atrophy. There is moderate diffuse heterogeneity of the white matter attenuation, consistent with chronic white matter ischemic changes. Negative for intracranial hemorrhage. Negative for intracranial mass. Negative for acute ischemia. Negative for mass effect on the brain. Negative for midline shift of the brain. Cerebral ventricles: No ventriculomegaly. Paranasal sinuses: Visualized sinuses are unremarkable. No fluid levels. Mastoid air cells: Visualized mastoid air cells are well aerated. Bones: Unremarkable. No acute fracture. Soft tissues: Posterior skin myriam. CT/CT head wo con* [id number] IMPRESSION: Negative for acute intracranial pathology.
--- NOTE | 2024-08-19 05:43 | XRR_ITS ---
PROCEDURE INFORMATION: Exam: XR Chest Exam date and time: 08/19/2024 5:59 AM Age: 69 years old Clinical indication: Cough TECHNIQUE: Imaging protocol: Radiologic exam of the chest. Views: 1 view. COMPARISON: CR XR chest 1V portable [id number] 08/17/2024 5:46 PM FINDINGS: Lungs: Prominent interstitial opacities widespread in both lungs are increased from the comparison. The left lung base is obscured by the enlarged cardiac silhouette and not further evaluated. There is no focal consolidation at the right lung base. Pleural spaces: Unremarkable. No pleural effusion. No pneumothorax. Heart/Mediastinum: Severely enlarged cardiomediastinal contour is unchanged. Bones/joints: Unremarkable. XR/XR chest 1V portable [id number] IMPRESSION: Interstitial lung markings are increased relative to prior which may represent edema or atypical pneumonia.
--- NOTE | 2024-08-19 05:43 | CTR_ITS ---
PROCEDURE INFORMATION: Exam: CT Cervical Spine Without Contrast Exam date and time: 08/19/2024 6:12 AM Age: 69 years old Clinical indication: Injury or trauma; Blunt trauma; EMS arrival for fall. Patient became dizzy when getting up to use the bathroom and fell with posterior headstrike. TECHNIQUE: Imaging protocol: Computed tomography of the cervical spine without contrast. Radiation optimization: All CT scans at this facility use at least one of these dose optimization techniques: automated exposure control; mA and/or kV adjustment per patient size (includes targeted exams where dose is matched to clinical indication); or iterative reconstruction. COMPARISON: CT cervical spin wo con* [id number] 04/14/2022 1:05 PM RADIATION DOSE METRICS: Total DLP (mGy-cm): 565.48 FINDINGS: Bones: No acute fracture. Normal alignment. No significant disc bulge or herniation. No severe spinal canal stenosis. No significant neural foraminal narrowing. Lungs: Lung apices are normal. Soft tissues: Unremarkable. CT/CT cervical spin wo con* [id number] IMPRESSION: No acute findings.
--- NOTE | 2024-08-19 05:47 | W.ED.FALL ---
Documented by User: Christiano Mercado MD 08/19/24 05:54 HPI - Fall General: Chief Complaint: Fall Stated Complaint: FALL Time Seen by Provider: 08/19/24 05:31 History of Present Illness: Patient comes in by EMS after a fall. Per EMS the state the patient's blood sugar was low when they arrived. She received 250 mL of D10 normal saline. The patient states that when she went to bed last night her blood sugar was 98 and she took her insulin still. States that she got up this morning to go to the bathroom and then fell. She laid on the ground for about 45 minutes. States that she feels much better at this time. Denies any chest pain, dizziness, shortness of breath. Denies any nausea, vomiting, diarrhea. States she has had some cough and congestion for the past few days. She has a 2 cm laceration to her posterior scalp. States she does not know when her last tetanus shot was. Will check labs, CT head and C-spine without IV contrast, clean and repair of the wound, give IV fluids, and reassess. Associated symptoms-after fall: Denies abdominal pain, chest pain, headache(s) or neck pain Related Data Home Medications ?Medication ?Instructions ?Recorded ?Confirmed lisinopril 10 mg tablet 10 mg PO DAILY 03/08/21 07/30/24 oxybutynin chloride 10 mg 10 mg PO DAILY 03/08/21 07/30/24 tablet,extended release 24 hr venlafaxine 37.5 mg 150 mg PO BID 03/08/21 07/30/24 capsule,extended release 24 hr (Effexor XR) atorvastatin 20 mg tablet 20 mg PO DAILY 08/11/22 07/30/24 meloxicam 15 mg tablet 15 mg PO DAILY 07/18/23 07/30/24 cyclobenzaprine 5 mg tablet 5 mg PO TID PRN 07/26/24 07/30/24 cyclosporine 0.05 % eye drops in a 1 drp ophthalmic (eye) Q12H 07/26/24 07/30/24 dropperette (Restasis) Previous Rx's ?Medication ?Instructions ?Recorded pantoprazole 40 mg tablet,delayed 40 mg PO BID 14 days #28 tabs 03/08/22 release (Protonix) aspirin 81 mg tablet,delayed 81 mg PO DAILY #30 tabs 07/18/23 release metformin 500 mg tablet See Rx Instructions .Route 07/10/24 .COMPLEX #60 tabs trazodone 150 mg tablet See Rx Instructions .Route 07/10/24 .COMPLEX #60 tabs verapamil 240 mg tablet,extended See Rx Instructions .Route 07/10/24 release .COMPLEX #30 tabs blood sugar diagnostic (True #100 ea 07/26/24 Metrix Glucose Test Strip) furosemide 40 mg tablet 40 mg PO QAM 5 days #5 tabs 07/26/24 insulin aspart U-100 100 unit/mL See Rx Instructions SUBCUT TID #15 07/26/24 (3 mL) subcutaneous pen (Novolog mL FlexPen U-100 Insulin aspart) insulin glargine 100 unit/mL (3 90 unit (0.9 mL) SUBCUT QAM #27 mL 07/26/24 mL) subcutaneous pen (Lantus Solostar U-100 Insulin) pen needle, diabetic 31 gauge x #100 ea 07/26/2407/26 (1st Tier Unifine Pentips) levofloxacin 500 mg tablet 500 mg PO DAILY 7 days #7 tabs 08/19/24 Allergies Allergy/AdvReac Type Severity Reaction Status Date / Time No Known Allergies Allergy Verified 07/26/24 11:08 Review of Systems Const: Denies: fever(s) or body aches ENMT: Denies: throat pain or odynophagia Card: Denies: chest pain or palpitations Resp: Reports: non-productive cough; Denies: dyspnea GI: Denies: abdominal pain, nausea or vomiting Musc: Denies: neck pain or back pain Neuro: Denies: headache(s) or numbness in extremities [facility] ED PFSH: Medical History (Updated 08/19/24 @ 07:29 by Keyshawn Valdovinos DO) Hypertension Hyperlipidemia Diabetes Gastritis Encounter for screening colonoscopy Difficulty in swallowing Surgical History History of tubal ligation History of knee replacement History of colonoscopy Family History Other Cancer Diabetes Hypertension Denies family history of CAD (coronary artery disease) Stroke Social History Smoking and tobacco/nicotine status: never used tobacco/nicotine Alcohol intake: never Substance/Drug Use: never Lives independently: Yes Household members: spouse Physical Exam Const: COMMON NORMALS: no acute distress, patient oriented x3 and alert HENMT: COMMON NORMALS: normocephalic HEAD & SCALP: normocephalic OTHER: 2 cm laceration to the posterior scalp Eye: COMMON NORMALS: Equal, round and reactive pupils present and EOMs intact bilaterally PUPIL: Yes Equal, round and reactive pupils present Neck/C-Spine: COMMON NORMALS: full ROM and supple Resp: COMMON NORMALS: normal respiratory effort, No retractions and No use of accessory muscles Cardio: COMMON NORMALS: regular rate and regular rhythm RATE: regular rate RHYTHM: regular rhythm GI: COMMON NORMALS: Normal to inspection, nondistended, normoactive bowel sounds present, Soft to palpation and non-tender PALPATION: Yes Soft to palpation Extremity: COMMON NORMALS: normal to inspection and full ROM Neuro: COMMON NORMALS: patient oriented x3 SENSORIUM/ORIENTATION: Yes alert OTHER: NIHSS equals 0 Procedures Laceration Laceration 1: Site: scalp Size (cm): 2 Description: linear Depth: simple, single layer Local Anesthetic: other anesthetic (None) Pre-repair: wound explored Skin layer closed with: other ([place]) Number of sutures: 3 Course Vital Signs: Vital signs: Vital Signs Temperature 97.4 F L 08/19/24 05:17 Pulse Rate 95 08/19/24 07:12 Respiratory Rate 25 H 08/19/24 07:12 Blood Pressure 123/74 08/19/24 07:12 Pulse Oximetry 98 08/19/24 07:12 Oxygen Delivery Me thod Room Air 08/19/24 07:12 MDM - Fall Medical Decision Making Awaiting test results. Will sign out to the oncoming physician. Lab Data 08/19/24 05:30 08/19/24 05:30 Radiology Impressions Cervical Spine CT 08/19/24 05:43 IMPRESSION: No acute findings. Chest X-Ray 08/19/24 05:43 IMPRESSION: Interstitial lung markings are increased relative to prior which may represent edema or atypical pneumonia. Head CT 08/19/24 05:43 IMPRESSION: Negative for acute intracranial pathology. Laboratory Results WBC 9.66 10^3/uL (3.29-11.43) 08/19/24 05:30 RBC 4.81 10^6/uL (3.85-5.65) 08/19/24 05:30 Hgb 10.40 g/dL (11.27-16.99) L 08/19/24 05:30 Hct 35.4 % (36-47) L 08/19/24 05:30 MCV 73.6 fl (85-98) L 08/19/24 05:30 MCH 21.6 pg (27-33) L 08/19/24 05:30 MCHC 29.4 g/dL (30-55) L 08/19/24 05:30 RDW 16.6 % (12.1-15.1) H 08/19/24 05:30 Plt Count 280 10^3/cmm (157-399) 08/19/24 05:30 MPV 9.0 fL (7.4-10.4) 08/19/24 05:30 Neut % (Auto) 86.1 % 08/19/24 05:30 Lymph % (Auto) 9.1 % 08/19/24 05:30 [place] % (Auto) 3.9 % 08/19/24 05:30 Eos % (Auto) 0.0 % 08/19/24 05:30 Baso % (Auto) 0.2 % 08/19/24 05:30 Neut # (Auto) 8.31 10^3/uL (1.8-7.7) H 08/19/24 05:30 Lymph # (Auto) 0.9 10^3/uL (0.8-4.8) 08/19/24 05:30 [place] # (Auto) 0.4 10^3/uL (0.2-0.9) 08/19/24 05:30 Eos # (Auto) 0.0 10^3/uL (0.0-0.8) 08/19/24 05:30 Baso # (Auto) 0.0 10^3/uL (0.0-0.1) 08/19/24 05:30 Nucleated RBC % (auto) 0 % 08/19/24 05:30 Nucleated RBCs # 0.0 /100WBC 08/19/24 05:30 Sodium 139 mmol/L (136-145) 08/19/24 05:30 Potassium 3.4 mmol/L (3.5-5.1) L 08/19/24 05:30 Chloride 100 mmol/L (98-107) 08/19/24 05:30 Carbon Dioxide 26 mmol/L (22-29) 08/19/24 05:30 Anion Gap 16.4 (5-19) 08/19/24 05:30 BUN 28 mg/dL (8-23) H 08/19/24 05:30 Creatinine 0.8 mg/dL (0.5-0.9) 08/19/24 05:30 GFR Calculation 71.5 mL/min (90-130) L 08/19/24 05:30 Glucose 217 mg/dL (65-115) H 08/19/24 05:30 POC Glucose 178 mg/dL (70-110) H 08/19/24 05:25 Calculated Osmolality 300 mOsm/kg (285-295) H 08/19/24 05:30 Calcium 8.3 mg/dL (8.5-10.5) L 08/19/24 05:30 Creatine Kinase 149 U/L (26-192) 08/19/24 05:30 Urine Color Yellow (Yellow) 08/19/24 05:50 Urine Appearance Cloudy (CLEAR) A 08/19/24 05:50 Urine pH 5.5 (5-7) 08/19/24 05:50 Ur Specific [place] 1.014 (1.005-1.030) 08/19/24 05:50 Urine Protein Trace (Negative) A 08/19/24 05:50 Urine Glucose (UA) Negative (Normal) 08/19/24 05:50 Urine Ketones Negative (Negative) 08/19/24 05:50 Urine Blood Negative (Negative) 08/19/24 05:50 Urine Nitrate Negative (Negative) 08/19/24 05:50 Urine Bilirubin Negative (Negative) 08/19/24 05:50 Urine Urobilinogen 1.0 mg/dL (Negative) 08/19/24 05:50 Ur Leukocyte Esterase 2+ (Negative) A 08/19/24 05:50 Urine RBC 3-5 /hpf (0-2) 08/19/24 05:50 Urine WBC 11-20 /hpf (0-5) H 08/19/24 05:50 Ur Squamous Epith Cells 0-5 /hpf (0-5) 08/19/24 05:50 Amorphous Sediment Not Reportable 08/19/24 05:50 Urine Bacteria 1+ /hpf (NONE) H 08/19/24 05:50 Hyaline Casts 1.21 /lpf 08/19/24 05:50 Discharge Plan Discharge Patient Disposition: Home Clinical Impression: Fall, Hypoglycemia, Laceration of head, Cystitis Condition: Stable Prescriptions: New levofloxacin 500 mg tablet 500 mg PO DAILY 7 Days Qty: 7 0RF No Action oxybutynin chloride 10 mg tablet extended release 24hr 10 mg PO DAILY lisinopril 10 mg tablet 10 mg PO DAILY venlafaxine [Effexor XR] 37.5 mg capsule,extended release 24hr 150 mg PO BID pantoprazole [Protonix] 40 mg tablet,delayed release (DR/EC) 40 mg PO BID 14 Days Qty: 28 0RF cyclobenzaprine 5 mg tablet 5 mg PO TID PRN cyclosporine [Restasis] 0.05 % dropperette 1 drp ophthalmic (eye) Q12H (DME) True Metrix Glucose Test Strip Strip See Rx Instructions .Route Qty: 100 3RF Rx Instructions: three times a day insulin glargine [Lantus Solostar U-100 Insulin] 100 unit/mL (3 mL) insulin pen 90 unit SUBCUT QAM Qty: 27 11RF Rx Instructions: 90 UNITS EVERY MORNING insulin aspart U-100 [Novolog FlexPen U-100 Insulin] 100 unit/mL (3 mL) insulin pen See Rx Instructions SUBCUT TID Qty: 15 0RF Rx Instructions: 0-150= o units 151-200= 2 units 201-250= 4 untis 251-300= 6 units 301-350= 8 units 351-400=10 units 401 or greater call doctor max daily dose 30 units. (DME) pen needle, diabetic [1st Tier Unifine Pentips] 31 gauge x 5/16 needle See Rx Instructions .Route Qty: 100 11RF Rx Instructions: inject up to four times a day. furosemide 40 mg tablet 40 mg PO QAM 5 Days Qty: 5 0RF Rx Instructions: the prn trazodone 150 mg tablet See Rx Instructions .ROUTE .COMPLEX Qty: 60 3RF Dose Instruction: TAKE TWO TABLETS BY MOUTH ONCE DAILY IN THE EVENING NEEDED Rx Instructions: TAKE TWO TABLETS BY MOUTH ONCE DAILY IN THE EVENING NEEDED verapamil 240 mg tablet extended release See Rx Instructions .ROUTE .COMPLEX Qty: 30 3RF Dose Instruction: TAKE ONE TABLET BY MOUTH ONCE DAILY Rx Instructions: TAKE ONE TABLET BY MOUTH ONCE DAILY metformin 500 mg tablet See Rx Instructions .ROUTE .COMPLEX Qty: 60 3RF Dose Instruction: TAKE ONE TABLET BY MOUTH TWICE DAILY Rx Instructions: TAKE ONE TABLET BY MOUTH TWICE DAILY atorvastatin 20 mg tablet 20 mg PO DAILY meloxicam 15 mg tablet 15 mg PO DAILY aspirin 81 mg tablet,delayed release (DR/EC) 81 mg PO DAILY Qty: 30 0RF Discharge Orders: Discharge ED (Routine); Ordered 08/19/24 Ordered By: Keyshawn Valdovinos Referrals: Kamille Retana NP [Primary Care Provider, Family Practice] Discharge Diet: Usual diet Discharge Activity: Increase activity as tolerated Patient Instructions: Opioid Safety, Pain Management Activity Restrictions/Additional Instructions: Thank you for choosing [facility] for your healthcare needs today. It is very important that you follow up as instructed or that you return to the Emergency Department should you have concerns or if your condition changes or worsens in any way. You were seen in the emergency room after a fall with low blood sugar blood sugar improved with medications given. CT of your head and neck did not show any acute abnormalities. We did notice that you have developed notable anemia in the past 6 to 9 months you should follow-up with your primary care doctor to have this evaluated further you do not require blood transfusion at this time. Finally you did have a mild bladder infection and some subtle changes on your chest x-ray suggestive of an early pneumonia. You were started on Levaquin 500 milligrams once a day which should cover both bladder infection and pneumonia follow-up with your primary care doctor within the next 7 to 10 days. Print Language: Japanese Sign Out Sign Out Data: Patient Sign Out occurred on 08/19/24 at 06:19. Patient's care was discussed, and care was transferred from Christiano Mercado MD to Keyshawn Valdovinos DO. Coding Level of Care Code ED Victims Advocate Clerk/Specialist for Chg Fwd Documented by User: Keyshawn Valdovinos DO 08/19/24 07:36 HPI - Fall General: Chief Complaint: Fall Stated Complaint: FALL Time Seen by Provider: 08/19/24 05:31 Related Data Home Medications ?Medication ?Instructions ?Recorded ?Confirmed lisinopril 10 mg tablet 10 mg PO DAILY 03/08/21 07/30/24 oxybutynin chloride 10 mg 10 mg PO DAILY 03/08/21 07/30/24 tablet,extended release 24 hr venlafaxine 37.5 mg 150 mg PO BID 03/08/21 07/30/24 capsule,extended release 24 hr (Effexor XR) atorvastatin 20 mg tablet 20 mg PO DAILY 08/11/22 07/30/24 meloxicam 15 mg tablet 15 mg PO DAILY 07/18/23 07/30/24 cyclobenzaprine 5 mg tablet 5 mg PO TID PRN 07/26/24 07/30/24 cyclosporine 0.05 % eye drops in a 1 drp ophthalmic (eye) Q12H 07/26/24 07/30/24 dropperette (Restasis) Previous Rx's ?Medication ?Instructions ?Recorded pantoprazole 40 mg tablet,delayed 40 mg PO BID 14 days #28 tabs 03/08/22 release (Protonix) aspirin 81 mg tablet,delayed 81 mg PO DAILY #30 tabs 07/18/23 release metformin 500 mg tablet See Rx Instructions .Route 07/10/24 .COMPLEX #60 tabs trazodone 150 mg tablet See Rx Instructions .Route 07/10/24 .COMPLEX #60 tabs verapamil 240 mg tablet,extended See Rx Instructions .Route 07/10/24 release .COMPLEX #30 tabs blood sugar diagnostic (True #100 ea 07/26/24 Metrix Glucose Test Strip) furosemide 40 mg tablet 40 mg PO QAM 5 days #5 tabs 07/26/24 insulin aspart U-100 100 unit/mL See Rx Instructions SUBCUT TID #15 07/26/24 (3 mL) subcutaneous pen (Novolog mL FlexPen U-100 Insulin aspart) insulin glargine 100 unit/mL (3 90 unit (0.9 mL) SUBCUT QAM #27 mL 07/26/24 mL) subcutaneous pen (Lantus Solostar U-100 Insulin) pen needle, diabetic 31 gauge x #100 ea 07/26/2407/26 (1st Tier Unifine Pentips) levofloxacin 500 mg tablet 500 mg PO DAILY 7 days #7 tabs 08/19/24 Allergies Allergy/AdvReac Type Severity Reaction Status Date / Time No Known Allergies Allergy Verified 07/26/24 11:08 PFSH ED PFSH: Medical History (Updated 08/19/24 @ 07:29 by Keyshawn Valdovinos DO) Hypertension Hyperlipidemia Diabetes Gastritis Encounter for screening colonoscopy Difficulty in swallowing Surgical History History of tubal ligation History of knee replacement History of colonoscopy Family History Other Cancer Diabetes Hypertension Denies family history of CAD (coronary artery disease) Stroke Social History Smoking and tobacco/nicotine status: never used tobacco/nicotine Alcohol intake: never Substance/Drug Use: never Lives independently: Yes Household members: spouse Course Vital Signs: Vital signs: Vital Signs Temperature 97.4 F L 08/19/24 05:17 Pulse Rate 95 08/19/24 07:12 Respiratory Rate 25 H 08/19/24 07:12 Blood Pressure 123/74 08/19/24 07:12 Pulse Oximetry 98 08/19/24 07:12 Oxygen Delivery Me thod Room Air 08/19/24 07:12 MDM - Fall Medical Decision Making Awaiting test results. Will sign out to the oncoming physician. Care assumed at change of shift imaging negative. Other labs reviewed patient is anemic appears to be chronic microcytic anemia but has decreased from last fall. Prior have been averaging hemoglobin around 13 not last to 10 or MCV is 73 this can be followed up with outpatient workup. Incidental notation of a cystitis which will be treated with Levaquin. Chest x-ray also question of possible pneumonia had slightly coarse breath sounds. Medical Records I reviewed the patient's medical records. Lab Data I reviewed the patient's lab results. 08/19/24 05:30 08/19/24 05:30 Radiology Impressions Cervical Spine CT 08/19/24 05:43 IMPRESSION: No acute findings. Chest X-Ray 08/19/24 05:43 IMPRESSION: Interstitial lung markings are increased relative to prior which may represent edema or atypical pneumonia. Head CT 08/19/24 05:43 IMPRESSION: Negative for acute intracranial pathology. Laboratory Results WBC 9.66 10^3/uL (3.29-11.43) 08/19/24 05:30 RBC 4.81 10^6/uL (3.85-5.65) 08/19/24 05:30 Hgb 10.40 g/dL (11.27-16.99) L 08/19/24 05:30 Hct 35.4 % (36-47) L 08/19/24 05:30 MCV 73.6 fl (85-98) L 08/19/24 05:30 MCH 21.6 pg (27-33) L 08/19/24 05:30 MCHC 29.4 g/dL (30-55) L 08/19/24 05:30 RDW 16.6 % (12.1-15.1) H 08/19/24 05:30 Plt Count 280 10^3/cmm (157-399) 08/19/24 05:30 MPV 9.0 fL (7.4-10.4) 08/19/24 05:30 Neut % (Auto) 86.1 % 08/19/24 05:30 Lymph % (Auto) 9.1 % 08/19/24 05:30 [place] % (Auto) 3.9 % 08/19/24 05:30 Eos % (Auto) 0.0 % 08/19/24 05:30 Baso % (Auto) 0.2 % 08/19/24 05:30 Neut # (Auto) 8.31 10^3/uL (1.8-7.7) H 08/19/24 05:30 Lymph # (Auto) 0.9 10^3/uL (0.8-4.8) 08/19/24 05:30 [place] # (Auto) 0.4 10^3/uL (0.2-0.9) 08/19/24 05:30 Eos # (Auto) 0.0 10^3/uL (0.0-0.8) 08/19/24 05:30 Baso # (Auto) 0.0 10^3/uL (0.0-0.1) 08/19/24 05:30 Nucleated RBC % (auto) 0 % 08/19/24 05:30 Nucleated RBCs # 0.0 /100WBC 08/19/24 05:30 Sodium 139 mmol/L (136-145) 08/19/24 05:30 Potassium 3.4 mmol/L (3.5-5.1) L 08/19/24 05:30 Chloride 100 mmol/L (98-107) 08/19/24 05:30 Carbon Dioxide 26 mmol/L (22-29) 08/19/24 05:30 Anion Gap 16.4 (5-19) 08/19/24 05:30 BUN 28 mg/dL (8-23) H 08/19/24 05:30 Creatinine 0.8 mg/dL (0.5-0.9) 08/19/24 05:30 GFR Calculation 71.5 mL/min (90-130) L 08/19/24 05:30 Glucose 217 mg/dL (65-115) H 08/19/24 05:30 POC Glucose 178 mg/dL (70-110) H 08/19/24 05:25 Calculated Osmolality 300 mOsm/kg (285-295) H 08/19/24 05:30 Calcium 8.3 mg/dL (8.5-10.5) L 08/19/24 05:30 Creatine Kinase 149 U/L (26-192) 08/19/24 05:30 Urine Color Yellow (Yellow) 08/19/24 05:50 Urine Appearance Cloudy (CLEAR) A 08/19/24 05:50 Urine pH 5.5 (5-7) 08/19/24 05:50 Ur Specific [place] 1.014 (1.005-1.030) 08/19/24 05:50 Urine Protein Trace (Negative) A 08/19/24 05:50 Urine Glucose (UA) Negative (Normal) 08/19/24 05:50 Urine Ketones Negative (Negative) 08/19/24 05:50 Urine Blood Negative (Negative) 08/19/24 05:50 Urine Nitrate Negative (Negative) 08/19/24 05:50 Urine Bilirubin Negative (Negative) 08/19/24 05:50 Urine Urobilinogen 1.0 mg/dL (Negative) 08/19/24 05:50 Ur Leukocyte Esterase 2+ (Negative) A 08/19/24 05:50 Urine RBC 3-5 /hpf (0-2) 08/19/24 05:50 Urine WBC 11-20 /hpf (0-5) H 08/19/24 05:50 Ur Squamous Epith Cells 0-5 /hpf (0-5) 08/19/24 05:50 Amorphous Sediment Not Reportable 08/19/24 05:50 Urine Bacteria 1+ /hpf (NONE) H 08/19/24 05:50 Hyaline Casts 1.21 /lpf 08/19/24 05:50 All radiology interpretation(s) finalized by discharge Discharge Plan Discharge Patient Disposition: Home Clinical Impression: Fall, Hypoglycemia, Laceration of head, Cystitis Condition: Stable Prescriptions: New levofloxacin 500 mg tablet 500 mg PO DAILY 7 Days Qty: 7 0RF No Action oxybutynin chloride 10 mg tablet extended release 24hr 10 mg PO DAILY lisinopril 10 mg tablet 10 mg PO DAILY venlafaxine [Effexor XR] 37.5 mg capsule,extended release 24hr 150 mg PO BID pantoprazole [Protonix] 40 mg tablet,delayed release (DR/EC) 40 mg PO BID 14 Days Qty: 28 0RF cyclobenzaprine 5 mg tablet 5 mg PO TID PRN cyclosporine [Restasis] 0.05 % dropperette 1 drp ophthalmic (eye) Q12H (DME) True Metrix Glucose Test Strip Strip See Rx Instructions .Route Qty: 100 3RF Rx Instructions: three times a day insulin glargine [Lantus Solostar U-100 Insulin] 100 unit/mL (3 mL) insulin pen 90 unit SUBCUT QAM Qty: 27 11RF Rx Instructions: 90 UNITS EVERY MORNING insulin aspart U-100 [Novolog FlexPen U-100 Insulin] 100 unit/mL (3 mL) insulin pen See Rx Instructions SUBCUT TID Qty: 15 0RF Rx Instructions: 0-150= o units 151-200= 2 units 201-250= 4 untis 251-300= 6 units 301-350= 8 units 351-400=10 units 401 or greater call doctor max daily dose 30 units. (DME) pen needle, diabetic [1st Tier Unifine Pentips] 31 gauge x 5/16 needle See Rx Instructions .Route Qty: 100 11RF Rx Instructions: inject up to four times a day. furosemide 40 mg tablet 40 mg PO QAM 5 Days Qty: 5 0RF Rx Instructions: the prn trazodone 150 mg tablet See Rx Instructions .ROUTE .COMPLEX Qty: 60 3RF Dose Instruction: TAKE TWO TABLETS BY MOUTH ONCE DAILY IN THE EVENING NEEDED Rx Instructions: TAKE TWO TABLETS BY MOUTH ONCE DAILY IN THE EVENING NEEDED verapamil 240 mg tablet extended release See Rx Instructions .ROUTE .COMPLEX Qty: 30 3RF Dose Instruction: TAKE ONE TABLET BY MOUTH ONCE DAILY Rx Instructions: TAKE ONE TABLET BY MOUTH ONCE DAILY metformin 500 mg tablet See Rx Instructions .ROUTE .COMPLEX Qty: 60 3RF Dose Instruction: TAKE ONE TABLET BY MOUTH TWICE DAILY Rx Instructions: TAKE ONE TABLET BY MOUTH TWICE DAILY atorvastatin 20 mg tablet 20 mg PO DAILY meloxicam 15 mg tablet 15 mg PO DAILY aspirin 81 mg tablet,delayed release (DR/EC) 81 mg PO DAILY Qty: 30 0RF Discharge Orders: Discharge ED (Routine); Ordered 08/19/24 Ordered By: Keyshawn Valdovinos Referrals: Kamille Retana, UROLOGIC SURGEON [Primary Care Provider, Family Practice] Discharge Diet: Usual diet Discharge Activity: Increase activity as tolerated Patient Instructions: Opioid Safety, Pain Management Activity Restrictions/Additional Instructions: Thank you for choosing [facility] for your healthcare needs today. It is very important that you follow up as instructed or that you return to the Emergency Department should you have concerns or if your condition changes or worsens in any way. You were seen in the emergency room after a fall with low blood sugar blood sugar improved with medications given. CT of your head and neck did not show any acute abnormalities. We did notice that you have developed notable anemia in the past 6 to 9 months you should follow-up with your primary care doctor to have this evaluated further you do not require blood transfusion at this time. Finally you did have a mild bladder infection and some subtle changes on your chest x-ray suggestive of an early pneumonia. You were started on Levaquin 500 milligrams once a day which should cover both bladder infection and pneumonia follow-up with your primary care doctor within the next 7 to 10 days. Print Language: Japanese Sign Out Sign Out Data: Patient Sign Out occurred on 08/19/24 at 06:19. Patient's care was discussed, and care was transferred from Christiano Mercado MD to Keyshawn Valdovinos DO. Coding Level of Care Code ED Victims Advocate Clerk/Specialist for Ericka Parker
[2024-08-19 05:50] LABS: Basophils % 0.2 %; Hematocrit 35.4 % (36-47); Lymphocytes # 0.9 10^3/uL (0.8-4.8); Lymphocytes % 9.1 %; Mean Corpuscular HGB Conc 29.4 g/dL (30-55); Mean Corpuscular Hemoglobin 21.6 pg (27-33); Mean Corpuscular Volume 73.6 fl (85-98); Monocytes # 0.4 10^3/uL (0.2-0.9); Monocytes % 3.9 %; Neutrophils # 8.31 10^3/uL (1.8-7.7); Neutrophils % 86.1 %; Nucleated Red Blood Cells % 0 %; Platelet Count 280 10^3/cmm (157-399); Red Blood Count 4.81 10^6/uL (3.85-5.65); Red Cell Distribution Width 16.6 % (12.1-15.1); White Blood Count 9.66 10^3/uL (3.29-11.43)
[2024-08-19 05:58] LABS: Bilirubin Urine Negative (Negative); Blood Urine Negative (Negative); Glucose Urine UA Negative (Normal); Ketones Urine Negative (Negative); Leukocyte Esterase Urine 2+ (Negative); Nitrate Urine Negative (Negative); Protein Urine Trace (Negative); Specific Gravity, Urine 1.014 (1.005-1.030); Urine Appearance Cloudy (CLEAR); Urine Color Yellow (Yellow); pH Urine 5.5 (5-7)
[2024-08-19] MEDS: tetanus-diphtheria tox (adult) 0.5 mL SDV IM (06:01)
[2024-08-19] MEDS: sodium chloride 0.9% 500 ML 999 ML IV (06:02)
[2024-08-19 06:03] LABS: Add Urine Microscopic? YES; Bacteria Urine 1+ /hpf; Hyaline Casts Urine 1.21 /lpf; Squamous Epithelial Cell Urine 0-5 /hpf (0-5)
--- NOTE | 2024-08-19 06:09 | PC.NURSE ---
pt transported to ct via stretcher per radiology technologist after chest ray performed via stretcher .
[2024-08-19 06:12] LABS: Anion Gap 16.4 (5-19); Blood Urea Nitrogen 28 mg/dL (8-23); Calcium 8.3 mg/dL (8.5-10.5); Carbon Dioxide 26 mmol/L (22-29); Chloride 100 mmol/L (98-107); Creatine Phosphokinase 149 U/L (26-192); Creatinine Clr Calc Pharmacy 85.7471; Glomerular Filtration Rate 71.5 mL/min (90-130); Glucose 217 mg/dL (65-115); Osmolality Calculated 300 mOsm/kg (285-295); Potassium 3.4 mmol/L (3.5-5.1); Sodium 139 mmol/L (136-145)
[2024-08-19 06:18] LABS: UA Slide Review UA Slide Review Perf
[2024-08-19 06:19] LABS: Add Urine Culture? Yes
[2024-08-19 07:12] VITALS: BP 123/74; PULSE 95; RESP 25; O2SAT 98
[2024-08-19 07:42] LABS: Glucose Point of Care 164 mg/dL (70-110)
[2024-08-19 08:30] VITALS: BP 148/101; PULSE 101; O2SAT 95
[2024-08-19 09:07] VITALS: BP 121/96; PULSE 96; O2SAT 98
[2024-08-19 09:37] VITALS: BP 129/77; PULSE 87; O2SAT 96
== END 2024-08-19 09:39 | disposition home or self-care (01) ==
PROVIDERS: Emergency Medicine; Emergency Provider Family Medicine; PCP Nurse Practitioner Family
DX: S01.01XA Laceration without foreign body of scalp, initial encounter (principal); E11.649 Type 2 diabetes mellitus with hypoglycemia without coma; I10 Essential (primary) hypertension; E78.5 Hyperlipidemia, unspecified; N30.90 Cystitis, unspecified without hematuria; W18.30XA Fall on same level, unspecified, initial encounter; Z79.899 Other long term (current) drug therapy; Z79.4 Long term (current) use of insulin; Z79.84 Long term (current) use of oral hypoglycemic drugs; Z79.02 Long term (current) use of antithrombotics/antiplatelets
CPT/HCPCS: 12001; 36416; 70450; 71045; 72125; 80048; 81001; 82550; 82962; 85025; 87086; 90471; 90714; 93005; 96360; 96361; 99285; J7040

== ENCOUNTER → 2024-10-28 11:00 | Outpatient (BNVA) | payer OTHER, MEDICAID, SELFPAY | PROVIDERS: PCP Nurse Practitioner Family; Visit Provider Nurse Practitioner Family | DX: E11.9 Type 2 diabetes mellitus without complications (principal) | CPT/HCPCS: 83036 ==

== ENCOUNTER 2024-10-30 12:51 | Outpatient (CLI) | payer OTHER, MEDICAID, SELFPAY ==
--- NOTE | 2024-10-30 12:40 | MM_ITS ---
WS: [id number] BILATERAL SCREENING DIGITAL TOMOSYNTHESIS MAMMOGRAM WITH CAD HISTORY: SCREENING COMPARISON: 06/10/2021, 03/18/2020 Bilateral CC and MLO views with tomosynthesis and synthetic mammography submitted. Computer aided detection analyzed. Breast composition: There are scattered areas of fibroglandular density. No suspicious masses, microcalcifications or architectural distortion. Stable asymmetries in the anterior LEFT breast. No suspicious grouping of calcifications. Biopsy clip mid LEFT breast. MM/MM scr BI tomosynthesis [id number] IMPRESSION: BI-RADS: 2 - Benign. FOLLOW UP: 1 Year Follow-up
== END 2024-10-30 12:52 | disposition home or self-care (01) ==
LOC: MOBLMAM 12:53
PROVIDERS: PCP Internal Medicine; Visit Provider Internal Medicine
DX: Z12.31 Encounter for screening mammogram for malignant neoplasm of breast (principal); R92.323 Mammographic fibroglandular density, bilateral breasts; N64.89 Other specified disorders of breast; Z96.89 Presence of other specified functional implants
CPT/HCPCS: 77063; 77067

== ENCOUNTER → 2025-01-28 14:52 | Outpatient (BNVA) | payer OTHER, MEDICAID, SELFPAY | PROVIDERS: PCP Nurse Practitioner Family; Visit Provider Nurse Practitioner Family | DX: E11.9 Type 2 diabetes mellitus without complications (principal); R60.0 Localized edema | CPT/HCPCS: 80053; 80061; 83036 ==

== ENCOUNTER → 2025-03-11 15:29 | Outpatient (BNVA) | payer OTHER, MEDICAID, SELFPAY | PROVIDERS: PCP Nurse Practitioner Family; Visit Provider Internal Medicine Cardiovascular Disease | DX: Z01.810 Encounter for preprocedural cardiovascular examination (principal); I11.0 Hypertensive heart disease with heart failure; I50.22 Chronic systolic (congestive) heart failure; E11.9 Type 2 diabetes mellitus without complications; Z79.4 Long term (current) use of insulin; E78.5 Hyperlipidemia, unspecified; Z87.891 Personal history of nicotine dependence; R07.9 Chest pain, unspecified | CPT/HCPCS: 93005; 99204 ==